=== PATIENT | male | born 1935 | race Caucasian/White ===

== ENCOUNTER 2020-11-21 08:02 | Outpatient (REF) | payer MEDICARE, SELFPAY ==
--- NOTE | ~2020-11-21 | MR_ITS ---
EXAMINATION: MR ANGIOGRAPHY BRAIN WITHOUT CONTRAST CLINICAL INFORMATION: Cerebral aneurysm. Microvascular neuropathy. COMPARISON: CTA head from 06/15/2014. Brain MRI from 06/12/2014. TECHNIQUE: 3D [id number] MR angiography was performed through the brain without the use of intravenous gadolinium and axial source images were reviewed along with rotating MIPs. FINDINGS: Atherosclerotic disease causes moderate irregularity of the intracranial right internal carotid artery and mild irregularity of the intracranial left internal carotid artery without flow-limiting stenosis or occlusion. Otherwise, normal flow-related signal within the ICAs. Normal flow-related signal within the M1 and M2 segments of the middle cerebral arteries bilaterally. The A1 segment of the right anterior cerebral artery is congenitally diminutive. Normal flow-related signal within the A1 segment of the left anterior cerebral artery. Redemonstrated 0.3 cm saccular aneurysm projecting anteriorly from the anterior communicating artery. Normal flow-related signal within the A2 segments of the anterior cerebral arteries. Dominant left vertebral artery. Atherosclerotic disease causes mild narrowing of the proximal V4 segment and moderate to high-grade stenosis of the distal V4 segment of the right vertebral artery. Normal flow-related signal within the V4 segment of the left vertebral artery. There is normal flow-related signal within the proximal posterior inferior cerebellar arteries bilaterally. The basilar artery is mildly tortuous. Otherwise, normal flow-related signal within the basilar artery. Normal proximal segments of the superior cerebellar arteries bilaterally. Normal flow-related signal within the P1 segments of the posterior cerebral arteries bilaterally. Normal flow across the left-sided posterior communicating artery. Normal flow-related signal within the P2 and P3 segments of the rubber goods cutter finisher bilaterally. No demonstrated new intradural aneurysms. Changes of moderate underlying microangiopathy. 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 No additional significant abnormalities on limited evaluation of the intracranial structures. 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 Mild mucosal thickening of the paranasal sinuses. Moderate rightward nasal septal deviation. MR/MR angio head wo con IMPRESSION: 1. 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 2. Mild to moderate intracranial atherosclerotic disease, similar to prior exam.
== END 2020-11-21 08:03 | disposition home or self-care (01) ==
LOC: HO.MRI 08:02
PROVIDERS: PCP Internal Medicine; Visit Provider Psychiatry & Neurology Neurology
DX: I67.9 Cerebrovascular disease, unspecified (principal); I87.1 Compression of vein
CPT/HCPCS: 70544

== ENCOUNTER 2023-01-05 07:27 | Outpatient (REF) | payer MEDICARE, SELFPAY ==
--- NOTE | ~2023-01-05 | CT_ITS ---
EXAMINATION: CT HEAD WITHOUT CONTRAST CLINICAL INFORMATION: Alzheimer's dementia. COMPARISON: Brain MRI from 06/12/2014. TECHNIQUE: Contiguous axial imaging was performed from the skull base to vertex without intravenous administration of contrast. This CT examination was performed using dose optimization techniques as appropriate, variously including the following: *Automated exposure control *Adjustment of mA and/or kV according to patient size (this includes techniques or standardized protocols for targeted exams where dose is matched to indication/reason for exam; i.e. extremities or head) *Use of iterative reconstruction technique DLP: 815 mGy-cm FINDINGS: There is no evidence of acute intracranial hemorrhage or territorial infarction. No abnormal mass effect or midline shift is seen. No extra-axial fluid collections are identified. Extensive chronic white matter microangiopathic changes have progressed. There are small chronic lacunar infarcts in the left basal ganglia. Xxjherqr-yp-aehhra diffuse brain parenchymal volume loss has worsened from previous imaging. The osseous structures and soft tissues are normal. The mastoid air cells are well aerated. Small retention cysts are visible in the right maxillary sinus and left sphenoid sinus. CT/CT head/brain wo IV con IMPRESSION: No acute intracranial hemorrhage or territorial infarction. Progressed extensive chronic white matter microangiopathy and dhdfczhl-ci-vzeuyt diffuse brain parenchymal volume loss.
== END 2023-01-05 07:28 | disposition home or self-care (01) ==
LOC: HO.CT 07:27
PROVIDERS: PCP Internal Medicine; Visit Provider Psychiatry & Neurology Neurology
DX: G30.9 Alzheimer's disease, unspecified (principal)
CPT/HCPCS: 70450

== ENCOUNTER 2024-01-19 22:02 | Inpatient (IN) | payer MEDICARE, SELFPAY ==
--- NOTE | 2024-01-19 | ECG_ITS ---
Test Reason : FALL Blood Pressure : / mmHG Vent. Rate : 070 BPM Atrial Rate : 070 BPM P-R Int : 250 ms QRS Dur : 118 ms QT Int : 436 ms P-R-T Axes : 000 042 -46 degrees QTc Int : 470 ms Sinus rhythm with 1st degree A-V block with frequent Premature ventricular complexes Right bundle branch block Abnormal ECG When compared with ECG of 05-JUN-2014 14:19, Premature ventricular complexes are now Present MN interval has increased Right bundle branch block is now Present Referred By: Generic ED Physician Electronically Signed By:PARTH PERSAUD MD
--- NOTE | ~2024-01-19 | XR_ITS ---
EXAMINATION: XR HIP, RIGHT CLINICAL INFORMATION: fall, pain, prosthesis COMPARISON: None available. TECHNIQUE: AP pelvis, AP and lateral radiographs of the right hip FINDINGS: Partial visualization is made of bilateral total hip arthroplasties. Visualized femur appears intact. The pelvis appears intact. Partial visualization of multilevel endplate and facet hypertrophic changes of the lower lumbar spine. Multiple pelvic phleboliths. XR/XR hip RT w PEL1V IMPRESSION: No acute abnormalities identified. Status post bilateral hip arthroplasties. Electronically signed by: Rubio Macias MD 01/20/2024 04:25 AM MALKA ALANIS
--- NOTE | ~2024-01-19 | CT_ITS ---
EXAMINATION: CT HEAD WITHOUT CONTRAST CT CERVICAL SPINE WITHOUT CONTRAST CLINICAL INFORMATION: Fall. Head strike. Right-sided pain. Weakness. COMPARISON: CT head from 01/05/2023. TECHNIQUE: Contiguous axial imaging was performed from the skull base to vertex without intravenous administration of contrast. Contiguous axial imaging was performed from the upper chest through the skull base without intravenous administration of contrast. Coronal and sagittal reformats were obtained at the acquisition workstation. This CT examination was performed using dose optimization techniques as appropriate, variously including the following: *Automated exposure control. *Adjustment of mA and/or kV according to patient size (this includes techniques or standardized protocols for targeted exams where dose is matched to indication/reason for exam; i.e. extremities or head). *Use of iterative reconstruction technique. DLP: 957 mGy-cm FINDINGS: Head: There is chronic encephalomalacia within the lateral right temporal lobe with associated volume loss. 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 No additional loss of ramirez-white matter differentiation. No evidence of acute intracranial hemorrhage. Confluent hypoattenuation in the periventricular and deep white matter. The ventricles are normal in morphology and size. No evidence for obstructive hydrocephalus. No abnormal mass effect or midline shift. No extra-axial fluid collections. Calcific atherosclerotic disease of the intracranial internal carotid and vertebral arteries. No hyperdense vessel sign. No acute soft tissue or osseous abnormalities. Mild mucosal thickening of the paranasal sinuses. Moderate rightward nasal septal deviation. The mastoid air cells and middle ear cavities are clear. Bilateral lens extractions. Cervical Spine: The atlantooccipital and atlantoaxial articulations remain well aligned. Moderate degenerative arthropathy of the atlantodental articulation. Mild degenerative anterolisthesis of C7 on T1. Otherwise, there is anatomic alignment of the vertebral bodies and posterior elements . Ankylosis of the left C2-C3 and right C2-C5 facets. No evidence of acute fracture or subluxation. The vertebral body heights are maintained. Advanced degenerative disc disease from C2-T3. Facet and uncovertebral joint arthropathy leads to osseous encroachment on the neural foramina from C3-T3. There is no prevertebral soft tissue swelling. The thyroid gland and remaining cervical soft tissues are within normal limits. The lung apices demonstrate no abnormalities. CT/CT head/brain wo IV con IMPRESSION: 1. No evidence of acute intracranial hemorrhage or edematous territorial infarction. 2. 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 Extensive underlying microangiopathy. 3. No evidence of acute fracture or traumatic subluxation of the cervical spine. Moderate to advanced multilevel degenerative spondyloarthropathy of the cervical spine. Electronically signed by: Carlos Mustafa DO 01/20/2024 01:00 AM [facility]
--- NOTE | ~2024-01-19 | XR_ITS ---
EXAMINATION: XR CHEST CLINICAL INFORMATION: weakness COMPARISON: Chest radiograph 06/05/2014 TECHNIQUE: Frontal view of the chest was obtained. FINDINGS: Multiple and fractured median sternotomy wires. Normal heart size. Dense aortic calcific atherosclerosis. No effusions or pneumothoraces. No focal pulmonary consolidation. Marked arthropathic changes of the right shoulder. Single 2 mm well-circumscribed nodule in projection with the right upper lung zone. This finding is not identified on 06/05/2014 examination and may be obscured visualization by differences in obliquity. XR/XR chest 1V IMPRESSION: *No acute abnormalities identified. *Status post CABG. *Single 2 mm well-circumscribed enhancing projection with the right upper pulmonary lobe. This finding may represent a chronic calcified pulmonary granuloma. Electronically signed by: Rubio Macias MD 01/20/2024 04:27 AM [facility]
--- NOTE | ~2024-01-19 | XR_ITS ---
EXAMINATION: XR SHOULDER, RIGHT CLINICAL INFORMATION: fall, pain COMPARISON: Right shoulder radiographs 02/05/2009 report. TECHNIQUE: AP external rotation, Grashey, scapular Y, and axillary views of the right shoulder. FINDINGS: Marked glenohumeral joints based narrowing and osteophytosis. Visualized left ribs and lung appear intact. Partial visualization of multiple median sternotomy wires and mediastinal vascular clips. Several well-corticated subcentimeter ossific bodies noted in the expected location of the glenohumeral joint capsule. No erosive osseous lesions. XR/XR shoulder RT min 2V IMPRESSION: *Marked chronic arthropathic changes of the right glenohumeral joint. No acute abnormalities identified. Electronically signed by: Rubio Macias MD 01/20/2024 04:29 AM [facility]
[2024-01-19 22:09] VITALS: BP 210/100; BP 211/92; PULSE 67; PULSE 75; RESP 16; TEMP 36.8; O2SAT 94; O2SAT 95; BMI 27.5
[2024-01-19 22:27] LABS: MANUAL DIFF FLAG NO
[2024-01-19 22:29] LABS: Basophils Percent Auto 0.3 % (0-2); Eosinophils Absolute Auto 0.4 X10*3/uL (0.0-0.4); Eosinophils Percent Auto 4.4 % (0-4); Hematocrit 37.3 % (42.0-52.0); Hemoglobin 13.4 g/dl (14.0-18.0); Imm Gran Abs Auto 0.03 X10*3/uL (0.00-0.03); Imm Gran Pct Auto 0.3 % (0.0-0.4); Lymphocytes Absolute Auto 1.5 X10*3/uL (1.2-4.9); Lymphocytes Percent Auto 16.7 % (20-40); Mean Corpuscular HGB Conc 35.9 g/dl (31.0-36.0); Mean Corpuscular Hemoglobin 32.4 pg (27.0-33.0); Mean Corpuscular Volume 90.1 fL (80.0-98.0); Mean Platelet Volume 9.2 fL (9.4-12.4); Monocytes Absolute Auto 0.7 X10*3/uL (0.1-1.2); Monocytes Percent Auto 7.5 % (2-11); Neutrophils Absolute Auto 6.1 x10*3/uL (2.0-8.3); Neutrophils Percent Auto 70.8 % (45-73); Platelet Count 197 X10*3/uL (160-400); Red Blood Count 4.14 X10*6/uL (4.60-5.80); Red Cell Distribution Width 11.9 % (11.0-16.0); White Blood Count 8.7 X10*3/uL (4.8-10.8)
--- NOTE | 2024-01-19 22:30 | PC.NURSE ---
blanca from home d/t unwitnessed fall earlier this morning. pt reports going to get in his car where he then tripped/slipped. denies feeling dizzy/lightheaded prior to fall. +headstrike, -loc, -thinners. family reports delay in EMS transport d/t pt declining care. EMS then called d/t increased pain when trying to get him to bed. pt reports increased weakness for the past few days. 975mg tylenol administered by [employer]. c-collar in place. hx bilateral hip surgery. upon ED arrival - a&ox3. pt mostly alert and oriented aside from not knowing the year. pt pleasantly confused. vss and up to date aside from being hypertensive. nsr on the property assessment monitor. 18gIV placed in the right forearm - labs obtained/sent to lab. ekg performed by [email or web address]. EMS states pt is +thinners but family confirmed that pt is not on thinners. PT/INR obtained prior to obtaining information from family. initial ED triage edited/ED provider notified/aware. pt on RA w/o difficulty - no sob/wob noted. respirations even/unlabored. family bedside for support. plan of care ongoing. call lopez placed within reach.
--- NOTE | 2024-01-19 22:30 | MHC.EDTECH ---
Patient was BIBA,placed on the patient monitor,vitals taken,POC taken and is 195,RN aware,EKG taken per order and signed by provider,family at bedside call lopez in reach
[2024-01-19 22:37] LABS: INTERNATIONAL NORM RATIO 1.1 (0.9-1.1); Prothrombin Time 12.4 SEC (10.9-12.4)
[2024-01-19 22:40] LABS: Partial Thromboplastin Time 26.7 SEC (26.0-36.8)
[2024-01-19 22:41] LABS: Glucose, Whole Blood 195 mg/dL (60-115)
[2024-01-19 22:43] LABS: Alanine Aminotransferase 24 U/L (0-40); Albumin Level 3.8 g/dL (3.5-5.0); Alkaline Phosphatase 46 U/L (39-117); Anion Gap 15 (12-20); Aspartate Amino Transferase 31 U/L (5-37); Bilirubin Total 0.5 mg/dL (0.0-1.0); Blood Urea Nitrogen 28 mg/dL (9-16); Calcium 9.3 mg/dL (8.4-10.2); Carbon Dioxide 26 mmol/L (22-29); Chloride 103 mmol/L (96-108); Creatinine Clr Calc Pharmacy 49.5; Estimated Glomerular Filt Rate > 60; Glucose Random 212 mg/dL (60-115); Potassium 4.2 mmol/L (3.3-5.1); Sodium 140 mmol/L (135-145); Total Protein 6.6 g/dL (6.5-8.0)
[2024-01-19 22:49] LABS: Troponin-I High Sensitivity 39.5 ng/L (<3.5-35.0)
[2024-01-19 23:04] LABS: Influenza A PCR NEGATIVE (Negative); Influenza B PCR NEGATIVE (Negative); Resp Syncy Virus RNA Qual PCR NEGATIVE (Negative); SARS COV2 PCR INHOUSE NEGATIVE (Negative)
--- NOTE | 2024-01-19 23:05 | ED_ITS ---
HPI - Fall General Chief Complaint: Fall Stated Complaint: fall head strike per ems Time Seen by Provider: 01/19/24 22:07 Source: patient, family and EMS Mode of arrival: EMS Limitations: no limitations History of Present Illness HPI Narrative: Patient is an 88-year-old male who presents emergency department via EMS for evaluation. He had an unwitnessed mechanical slip and fall today. Was getting out of the car was reportedly wet. He has intermittent episodes of dizziness but is unclear whether he was experiencing any dizziness before the fall today. Patient is was Standing at the back of the vehicle. Patient states that he was reaching for the walker, there is a possibility that it may not have been locked, and he subsequently fell striking his head to the ground without loss of consciousness and landing in a right side-lying position. did not witness the fall directly but checked on him seconds after once she saw ?his head go down? seconds later she checked on him he was conscious. He was unable to get up unassisted son who lives next door is had to facilitate getting him up. Initial nursing triage reports that he is on blood thinners this is inaccurate, patient is not on any anticoagulants nor does he have known coagulation disorders. He declined earlier today to seek evaluation in the emergency department despite family pushing for it. As the day has progressed she was having increasing weakness, endorsing pain to the right shoulder as well as the right hip. Denies any headache dizziness lightheadedness, does have some discomfort to the right lateral neck. He is requiring increased assistance from his who getting ready for bed tonight and was unable to get up from the toilet. He took 975 mg of Tylenol prior to arrival for the pain. He is ultimately amenable to transfer to the ER. Son reports that he also had a fall earlier this week a mechanical trip and fall with use of the walker as well this was endorsing he did not seek evaluation in the emergency department for this. Family does state that he has been having increasing weakness over the past few weeks, he has been engaging and outpatient physical therapy and seemed to be doing well however things have seemed to regress again. He also has been experiencing mild increase in confusion, awaiting outpatient brain MRI from PCP for further evaluation. He experiences intermittent dizziness, most times during ambulation report to the that he is feeling weak like his legs are going to give out and feeling dizzy. Denies any recent known sick contacts. Denies recent fevers or chills. No genitourinary symptoms. Related Data Allergies Allergy/AdvReac Type Severity Reaction Status Date / Time adhesive tape Allergy Unknown RASH Verified 01/19/24 22:10 amlodipine [From NORVASC] Allergy Unknown UNKNOWN Verified 01/19/24 22:10 ezetimibe [From ZETIA] Allergy Unknown UNKNOWN Verified 01/19/24 22:10 ibuprofen [From MOTRIN] Allergy Unknown UNKNOWN Verified 01/19/24 22:10 Iodinated Contrast Media Allergy Unknown UNKNOWN Verified 01/19/24 22:10 [IODINATED CONTRAST MEDIA - IV DYE] nifedipine [From PROCARDIA] Allergy Unknown UNKNOWN Verified 01/19/24 22:10 Xapsjzo-SLE-VtP Reductase Allergy Unknown MUSCLE PAIN Verified 01/19/24 22:10 Inhibitor [[id number] REDUCTASE INHIBITOR] valsartan [From DIOVAN] Allergy Unknown UNKNOWN Verified 01/19/24 22:10 enalaprilat [From VASOTEC] AdvReac Unknown COUGH Verified 01/19/24 22:10 Review of Systems 2 Review of Systems: Yes all other systems are reviewed and are negative [facility] Past Medical History Attestation statement: The following information was validated with the patient. Source: old records reviewed Medical History (Updated 01/20/24 @ 05:11 by Nguyen Freitas PA-C) Type 2 diabetes mellitus without complications HLD (hyperlipidemia) HTN (hypertension) Multiple falls Dizziness Bundle branch block, right First degree AV block Surgical History (Updated 01/20/24 @ 05:11 by Nguyen Freitas PA-C) History of coronary artery bypass graft Social History Social History Smoked in Last 30 Days: No Use of substances other than those prescribed or required for medical reasons: No Advance Directives: No Advance Directives Information Provided: No Do you have a plan to hurt others: No Plan Physical Exam 2 Vital Signs: Vital Signs: Last Vital Signs Temp 97.3 F 01/20/24 03:29 Pulse 54 01/20/24 03:29 Resp 16 01/20/24 03:29 BP 147/60 H 01/20/24 03:29 Pulse Ox 94 01/20/24 03:29 O2 Del Method Room Air 01/20/24 03:29 BMI result Body Mass Index 27.5 Appearance: Alert.?Oriented to person, place and time. No acute distress.?Normal affect. Head: Normocephalic Eyes: Pupils equal, round and reactive to light. EOMI. Conjunctiva and sclera normal? No العر[place] sign noted. No raccoon eyes noted ENT: No septal hematoma, nares patent bilaterally. External auditory canal normal tympanic membrane pearly ramirez and intact bilaterally. Dentition normal, no fractured teeth. No lesions or lacerations of oropharynx. Uvula midline. Moist mucous membranes. Neck: Normal inspection.? Neck supple.??No palpable tenderness, step-off, deformities. Hard cervical spine collar is intact. CVS: Heart sounds normal. Normal heart rate and rhythm.? Pulses normal.?? Respiratory: No respiratory distress.? Lung sounds clear to auscultation bilaterally?? Abdomen: Soft and non-tender. Normoactive bowel sounds. ?? Skin: Skin warm and dry.? Normal skin color.? Normal skin turgor.?? Extremities: No lower extremity edema.? No shortening or rotation. No point tenderness to the right hip. 2+ DP/PT pulse bilaterally. Mild decreased AROM with overhead extension to the right shoulder. 2+ radial pulse. Neuro: Moves all extremities spontaneously. Sensation intact bilaterally. CN II- XII intact. No focal neuro deficits. Course Reevaluation(s) Reevaluation #1: Spoke with hospitalist Dr. Esteban Reed, given his increasing weakness, multiple falls, dizziness concern for possible cardiac etiology, XR imaging of the chest/ right shoulder/ right hip are pending at this time. Case will be reviewed. Need my attending Dr. Rivera aware of patient's pending re- evaluation/disposition. Reevaluation #2: at this time he does seem confused though I suspect it it progressive, no acute findings on workup no delta on troponin, no acute CT findings, no UTI at this time will place in physician observation 524am pending PT/CM Medications Administered Discontinued Medications Generic Name Dose Route Start Last Admin Trade Name Freq PRN Reason Stop Dose Admin Acetaminophen 975 mg 01/20/24 03:47 01/20/24 03:51 Acetaminophen 325 Mg Tablet PO 01/20/24 03:48 975 mg ONCE ONE Administration Medical Decision Making Medical Decision Making MDM Narrative: Patient is an 88-year-old male with past medical history of hypertension, hypercholesterolemia, type 2 diabetes, coronary artery disease quadruple CABG in 2016 presenting to emergency department for evaluation after mechanical trip and fall subsequent right lateral neck pain, right shoulder pain right hip pain in the setting of increasing weakness and multiple falls over the past few weeks as per HPI. Overall he appears well, he answers questions appropriately. Has no focal neurological deficits on examination. No use of anticoagulants or known coagulation disorders. Although the mechanism today appears to be strictly mechanical, he has had progressive weakness and difficulty ambulating, Will obtain CBC to evaluate for leukocytosis/ anemia, CMP and lipase to evaluate for abnormal electrolytes /abnormal renal function/ abnormal hepatic/biliary function, EKG and troponin to evaluate for ischemia/ACS. CT head and cervical spine to exclude ICH, fracture, subluxation, viral serologies, XR of the right shoulder and right hip/pelvis to exclude fracture lower clinical suspicion for dislocation, and Urinalysis. Differential Diagnosis Differential Diagnoses: The differential diagnosis associated with the presentation includes (See narrative above) Admission/Observation Consideration of admission/observation: Escalation of care including admission/observation considered Lab Data MDM Lab Attestation statement: I reviewed the patient's lab results. CBC is without leukocytosis, mild normocytic anemia that does not meet transfusion criteria, no thrombocytopenia. Coagulation studies normal range. No electrolyte derangement. BUN of 28, no baseline comparison available, creatinine within normal range EGFR> 60. Non-anion gap hyperglycemia at 212. LFTs overall unremarkable. Minimally elevated high sensitive troponin at 39.5 will obtain delta troponin for further evaluation viral serologies are negative. 01/19/24 22:23 01/19/24 22:23 Labs: Lab Results 01/19/24 01/19/24 01/19/24 Range/Units 22:22 22:23 22:28 WBC 8.7 (4.8-10.8) X10*3/uL RBC 4.14 L (4.60-5.80) X10*6/uL Hgb 13.4 L (14.0-18.0) g/dl Hct 37.3 L (42.0-52.0) % MCV 90.1 (80.0-98.0) fL MCH 32.4 (27.0-33.0) pg MCHC 35.9 (31.0-36.0) g/dl RDW 11.9 (11.0-16.0) % Plt Count 197 (160-400) X10*3/uL MPV 9.2 L (9.4-12.4) fL Immature Gran % (Auto) 0.3 (0.0-0.4) % Neut % (Auto) 70.8 (45-73) % Lymph % (Auto) 16.7 L (20-40) % [place] % (Auto) 7.5 (2-11) % Eos % (Auto) 4.4 H (0-4) % Baso % (Auto) 0.3 (0-2) % Lymph # (Auto) 1.5 (1.2-4.9) X10*3/uL [place] # (Auto) 0.7 (0.1-1.2) X10*3/uL Eos # (Auto) 0.4 (0.0-0.4) X10*3/uL Baso # (Auto) 0.0 (0.0-0.2) X10*3/uL Abs Immat Gran (auto) 0.03 (0.00-0.03) X10*3/uL Absolute Neuts (auto) 6.1 (2.0-8.3) x10*3/uL Absolute Nucleated RBC 0.000 (0.0-0.012) X10*3/uL Nucleated RBC % (auto) 0.0 (0.0-0.2) /100WBC PT 12.4 (10.9-12.4) SEC INR 1.1 (0.9-1.1) APTT 26.7 (26.0-36.8) SEC Sodium 140 (135-145) mmol/L Potassium 4.2 (3.3-5.1) mmol/L Chloride 103 (96-108) mmol/L Carbon Dioxide 26 (22-29) mmol/L Anion Gap 15 (12-20) BUN 28 H (9-16) mg/dL Creatinine 0.94 (0.5-1.4) mg/dL Estim Creat Clear Calc 49.5 Estimated GFR > 60 POC Glucose 195 H (60-115) mg/dL Random Glucose 212 H (60-115) mg/dL Calcium 9.3 (8.4-10.2) mg/dL Total Bilirubin 0.5 (0.0-1.0) mg/dL AST 31 (5-37) U/L ALT 24 (0-40) U/L Alkaline Phosphatase 46 (39-117) U/L Troponin I High Sens 39.5 H (<3.5-35.0) ng/L B-Natriuretic Peptide 493 H (<100) pg/mL Total Protein 6.6 (6.5-8.0) g/dL Albumin 3.8 (3.5-5.0) g/dL Urine Color Urine Appearance Urine pH (5.0-9.0) Ur Specific [place] (1.005-1.025) Urine Protein (Neg-Trace) mg/dL Urine Glucose (UA) (Negative) mg/dL Urine Ketones (Negative) mg/dL Urine Blood (Negative) Urine Nitrite (Negative) Ur Leukocyte Esterase (Negative) Urine RBC (0-2) /HPF Urine WBC (0-5) /HPF Ur Squamous Epith Cells (0-2) /HPF Urine Bacteria (None Seen) Hyaline Casts (0-2) /LPF Influenza Type A (PCR) NEGATIVE (Negative) Influenza Type B (PCR) NEGATIVE (Negative) RSV RNA Qual (PCR) NEGATIVE (Negative) SARS-CoV-2 RNA (RT-PCR) NEGATIVE (Negative) 01/19/24 01/20/24 Range/Units 23:11 00:37 WBC (4.8-10.8) X10*3/uL RBC (4.60-5.80) X10*6/uL Hgb (14.0-18.0) g/dl Hct (42.0-52.0) % MCV (80.0-98.0) fL MCH (27.0-33.0) pg MCHC (31.0-36.0) g/dl RDW (11.0-16.0) % Plt Count (160-400) X10*3/uL MPV (9.4-12.4) fL Immature Gran % (Auto) (0.0-0.4) % Neut % (Auto) (45-73) % Lymph % (Auto) (20-40) % [place] % (Auto) (2-11) % Eos % (Auto) (0-4) % Baso % (Auto) (0-2) % Lymph # (Auto) (1.2-4.9) X10*3/uL [place] # (Auto) (0.1-1.2) X10*3/uL Eos # (Auto) (0.0-0.4) X10*3/uL Baso # (Auto) (0.0-0.2) X10*3/uL Abs Immat Gran (auto) (0.00-0.03) X10*3/uL Absolute Neuts (auto) (2.0-8.3) x10*3/uL Absolute Nucleated RBC (0.0-0.012) X10*3/uL Nucleated RBC % (auto) (0.0-0.2) /100WBC PT (10.9-12.4) SEC INR (0.9-1.1) APTT (26.0-36.8) SEC Sodium (135-145) mmol/L Potassium (3.3-5.1) mmol/L Chloride (96-108) mmol/L Carbon Dioxide (22-29) mmol/L Anion Gap (12-20) BUN (9-16) mg/dL Creatinine (0.5-1.4) mg/dL Estim Creat Clear Calc Estimated GFR POC Glucose (60-115) mg/dL Random Glucose (60-115) mg/dL Calcium (8.4-10.2) mg/dL Total Bilirubin (0.0-1.0) mg/dL AST (5-37) U/L ALT (0-40) U/L Alkaline Phosphatase (39-117) U/L Troponin I High Sens 44.1 H (<3.5-35.0) ng/L B-Natriuretic Peptide (<100) pg/mL Total Protein (6.5-8.0) g/dL Albumin (3.5-5.0) g/dL Urine Color Yellow Urine Appearance Clear Urine pH 5.5 (5.0-9.0) Ur Specific [place] 1.020 (1.005-1.025) Urine Protein Negative (Neg-Trace) mg/dL Urine Glucose (UA) Negative (Negative) mg/dL Urine Ketones Negative (Negative) mg/dL Urine Blood Negative (Negative) Urine Nitrite Negative (Negative) Ur Leukocyte Esterase Negative (Negative) Urine RBC 0-2 (0-2) /HPF Urine WBC 0-5 (0-5) /HPF Ur Squamous Epith Cells 0-2 (0-2) /HPF Urine Bacteria None Seen (None Seen) Hyaline Casts 0-2 (0-2) /LPF Influenza Type A (PCR) (Negative) Influenza Type B (PCR) (Negative) RSV RNA Qual (PCR) (Negative) SARS-CoV-2 RNA (RT-PCR) (Negative) Independent Interpretation I performed an independent interpretation of an: EKG Interpretation: EKG revealing sinus rhythm with PVCs, first-degree AV block YVAN 250ms, and right bundle-branch block no prior EKG available for review, Radiology Impression Discussion of test interpretation with radiology: I have reviewed the radiologist's reading. Radiologist Impression: CT/CT cervical spine wo IV con IMPRESSION: 1. No evidence of acute intracranial hemorrhage or edematous territorial infarction. 2. 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 Extensive underlying microangiopathy. 3. No evidence of acute fracture or traumatic subluxation of the cervical spine. Moderate to advanced multilevel degenerative spondyloarthropathy of the cervical spine. Independent Historian Clinical information obtained from an independent historian. History obtained from or confirmed by: Spouse, EMS and Other (Son) Chronic Conditions Patient?s care impacted by: Other (See narrative above) Discharge Plan Discharge Clinical Impression: Dizziness, First degree AV block, Bundle branch block, right, Multiple falls Patient Disposition: Still a Patient Print Language: Comoran
[2024-01-19 23:18] LABS: Appearance Urine Clear; Color Urine Yellow; Glucose Urine UA Negative (Negative); Leukocyte Esterase Urine Negative (Negative); Nitrite Urine Negative (Negative); PH 5.5 (5.0-9.0); Urine Blood Negative (Negative); Urine Ketones Negative (Negative); Urine Protein Negative (Neg-Trace)
[2024-01-19 23:23] LABS: Bacteria Urine None Seen (None Seen); Hyaline Casts Urine 0-2 /LPF (0-2); RBC Urine 0-2 /HPF (0-2); Squamous Epithelial Cell Urine 0-2 /HPF (0-2); WBC Urine 0-5 /HPF (0-5)
--- NOTE | 2024-01-19 23:28 | MHC.EDTECH ---
Assisted pt with a clean catch,pt urinated 100MLS in urinal,sample obtained and sent to lab,pt is resting quietly,warm blankets given,call lopez in reach
[2024-01-19 23:30] VITALS: BP 168/80; PULSE 62; RESP 18; TEMP 36.4; O2SAT 96
--- NOTE | 2024-01-19 23:33 | PC.NURSE ---
urinal utilized - urine obtained/sent to lab. pt turned/repositioned to comfort. c-collar remains in place. respirations remain even/unlabored. family remains bedside. plan of care ongoing. call lopez placed within reach.
[2024-01-19 23:57] LABS: B Type Natriuretic Peptide 493 pg/mL (<100)
[2024-01-20] VITALS (10 sets, daily range): BP systolic 129–183; BP diastolic 60–101; PULSE 54–92; RESP 16–18; TEMP 36.3–36.8; O2SAT 92–98; BMI 23.4; BMI 21.8
--- NOTE | 2024-01-20 | PC.NURSE ---
pt to CT at this time. plan of care ongoing.
--- NOTE | 2024-01-20 00:38 | MHC.EDTECH ---
Patient was incont. of a large amount of urine,alissa-care and bed linen changed,patient urinated 150MLS in urinal,repeat lab drawn and sent to lab
[2024-01-20 01:06] LABS: Troponin-I High Sensitivity 44.1 ng/L (<3.5-35.0)
--- NOTE | 2024-01-20 02:12 | MHC.EDTECH ---
Patient urinated 300MLS in urinal,pt was also incont. of a large amount of urine,alissa care given bed linen changed, Ortho static vitals taken per provider's request,call lopez in reach
--- NOTE | 2024-01-20 03:07 | PC.NURSE ---
pt to xray at this time.
[2024-01-20] MEDS: Acetaminophen 325 MG TABLET 975 MG PO (03:51)
--- NOTE | 2024-01-20 03:52 | PC.NURSE ---
pt verbalizes increase in generalized pain at this time - one time dose of Tylenol ordered/administered at this time. effectiveness pending.
--- NOTE | 2024-01-20 05:07 | P.HPHOSP_ITS ---
History of Present Illness Date of Service: 01/20/24 Attending physician on admission: Margarito Reed Chief Complaint: Unwitnessed mechanical fall Patient is an 88-year-old male with a past medical history significant for HTN, HLD, T2DM CAD status post CABG 2015, who presented to the ED yesterday due to frequent falls, weakness and dizziness. His son is the main historian for the patient at this time. There is some reported confusion that has been worsening and the patient is followed by Neurology and is supposed to have a repeat MRI soon. He reportedly had a fall while exiting his car yesterday where he fell onto his right side and did hit his head shoulder and hip but denies any loss of consciousness. His was present and reported that seconds later she did see him and did not notice any loss of consciousness either. His son is very concerned about his recent falls and persistent nocturia which is contributing to lack of sleep and his concern for him falling in the middle of the night. He has no URI symptoms, chest pain, shortness of breath, lower extremity edema, nausea or vomiting. Review of Systems 2 Constitutional: Constitutional: Denies chills, Denies fatigue, Denies fever(s) and Denies headache(s) Eyes: Eyes: Denies change in vision ENT: Denies headache(s), Denies nasal congestion, Denies nasal discharge and Denies sore throat Cardiovascular: Cardiovascular: Denies chest pain, Denies rapid heart rate, Denies lightheadedness and Denies dyspnea Respiratory: Respiratory: Denies chest congestion, Denies cough, Denies dyspnea and Denies wheezing Gastrointestinal: Gastrointestinal: Denies constipation, Denies diarrhea, Denies nausea and Denies vomiting Genitourinary: Genitourinary: Denies dysuria and Reports nocturia Musculoskeletal: Musculoskeletal: Denies myalgias Integumentary/Breasts: Skin/Breast: Denies rash Neurologic: Denies headache(s) Psychiatric: Psychiatric: Reports as per HPI Endocrine: Endocrine: Denies fatigue Hematologic/Lymphatic: Hematologic/Lymphatic: Denies easy bleeding Allergic/Immunologic: Allergic/Immunologic: Denies wheezing [facility] Medical History (Updated 01/20/24 @ 05:29 by Nguyen Freitas PA-C) Type 2 diabetes mellitus without complications HLD (hyperlipidemia) HTN (hypertension) Multiple falls Dizziness Bundle branch block, right First degree AV block Functional capacity: uses cane/walker Surgical History (Updated 01/20/24 @ 05:11 by Nguyen Freitas PA-C) History of coronary artery bypass graft Social History Patient Tobacco Use Status: Never used Tobacco Smoked in Last 30 Days: No Use of substances other than those prescribed or required for medical reasons: No Advance Directives: No Advance Directives Information Provided: No Do you have a plan to hurt others: No Plan Nutrition Risks: No Nutritional Risk Narrative: No smoking, alcohol or drug use. Lives with , son lives next door. Meds Allergies Allergy/AdvReac Type Severity Reaction Status Date / Time adhesive tape Allergy Unknown RASH Verified 01/19/24 22:10 amlodipine [From NORVASC] Allergy Unknown UNKNOWN Verified 01/19/24 22:10 ezetimibe [From ZETIA] Allergy Unknown UNKNOWN Verified 01/19/24 22:10 ibuprofen [From MOTRIN] Allergy Unknown UNKNOWN Verified 01/19/24 22:10 Iodinated Contrast Media Allergy Unknown UNKNOWN Verified 01/19/24 22:10 [IODINATED CONTRAST MEDIA - IV DYE] nifedipine [From PROCARDIA] Allergy Unknown UNKNOWN Verified 01/19/24 22:10 Ewannit-WVI-FbQ Reductase Allergy Unknown MUSCLE PAIN Verified 01/19/24 22:10 Inhibitor [[id number] REDUCTASE INHIBITOR] valsartan [From DIOVAN] Allergy Unknown UNKNOWN Verified 01/19/24 22:10 enalaprilat [From VASOTEC] AdvReac Unknown COUGH Verified 01/19/24 22:10 Home Medications ?Medication ?Instructions ?Recorded ?Confirmed ?Last Taken ?Type FreeStyle Lite Meter 01/20/24 01/20/24 Unknown History ascorbic acid (vitamin C) 500 mg 01/20/24 01/19/24 History tablet aspirin 81 mg tablet mg PO 01/20/24 01/19/24 History cyanocobalamin (vitamin B-12) 500 mcg 01/20/24 01/19/24 History mcg tablet metformin 500 mg tablet 500 mg PO BID 01/20/24 01/20/24 01/19/24 History metoprolol succinate 100 mg 100 mg PO DAILY 01/20/24 01/20/24 01/19/24 History tablet,extended release 24 hr Physical Exam 2 Vital Signs and Narrative: Vital Signs: Last Vital Signs Temp 97.3 F 01/20/24 03:29 Pulse 54 01/20/24 03:29 Resp 16 01/20/24 03:29 BP 147/60 H 01/20/24 03:29 Pulse Ox 94 01/20/24 03:29 O2 Del Method Room Air 01/20/24 03:29 BMI result Body Mass Index 27.5 General: AOx3, no acute distress Resp: CTA bilaterally CVS: mild bradycardia GI: +BS, NT, no distention Skin: Warm, dry Neuro: Cranial nerves II-XII grossly intact bilaterally. Motor grossly intact bilaterally Extremities: No LE edema Psych: Appropriate affect Results Labs 01/19/24 22:23 01/19/24 22:23 Labs: Laboratory Results - last 24 hr 01/19/24 01/19/24 01/19/24 22:22 22:23 22:28 MCV 90.1 MCH 32.4 MCHC 35.9 RDW 11.9 Plt Count 197 MPV 9.2 L Immature Gran % (Auto) 0.3 Neut % (Auto) 70.8 Lymph % (Auto) 16.7 L [place] % (Auto) 7.5 Eos % (Auto) 4.4 H Baso % (Auto) 0.3 Lymph # (Auto) 1.5 [place] # (Auto) 0.7 Eos # (Auto) 0.4 Baso # (Auto) 0.0 Abs Immat Gran (auto) 0.03 Absolute Neuts (auto) 6.1 Absolute Nucleated RBC 0.000 Nucleated RBC % (auto) 0.0 PT 12.4 INR 1.1 APTT 26.7 Anion Gap 15 Estim Creat Clear Calc 49.5 Estimated GFR > 60 POC Glucose 195 H Random Glucose 212 H Calcium 9.3 Total Bilirubin 0.5 AST 31 ALT 24 Alkaline Phosphatase 46 Troponin I High Sens 39.5 H B-Natriuretic Peptide 493 H Total Protein 6.6 Albumin 3.8 Urine Color Urine Appearance Urine pH Ur Specific [place] Urine Protein Urine Glucose (UA) Urine Ketones Urine Blood Urine Nitrite Ur Leukocyte Esterase Urine RBC Urine WBC Ur Squamous Epith Cells Urine Bacteria Hyaline Casts Influenza Type A (PCR) NEGATIVE Influenza Type B (PCR) NEGATIVE RSV RNA Qual (PCR) NEGATIVE SARS-CoV-2 RNA (RT-PCR) NEGATIVE 01/19/24 01/20/24 23:11 00:37 MCV MCH MCHC RDW Plt Count MPV Immature Gran % (Auto) Neut % (Auto) Lymph % (Auto) [place] % (Auto) Eos % (Auto) Baso % (Auto) Lymph # (Auto) [place] # (Auto) Eos # (Auto) Baso # (Auto) Abs Immat Gran (auto) Absolute Neuts (auto) Absolute Nucleated RBC Nucleated RBC % (auto) PT INR APTT Anion Gap Estim Creat Clear Calc Estimated GFR POC Glucose Random Glucose Calcium Total Bilirubin AST ALT Alkaline Phosphatase Troponin I High Sens 44.1 H B-Natriuretic Peptide Total Protein Albumin Urine Color Yellow Urine Appearance Clear Urine pH 5.5 Ur Specific [place] 1.020 Urine Protein Negative Urine Glucose (UA) Negative Urine Ketones Negative Urine Blood Negative Urine Nitrite Negative Ur Leukocyte Esterase Negative Urine RBC 0-2 Urine WBC 0-5 Ur Squamous Epith Cells 0-2 Urine Bacteria None Seen Hyaline Casts 0-2 Influenza Type A (PCR) Influenza Type B (PCR) RSV RNA Qual (PCR) SARS-CoV-2 RNA (RT-PCR) Imaging Radiologist's Impressions: Impressions Cervical Spine CT 01/19/24 23:57 IMPRESSION: 1. No evidence of acute intracranial hemorrhage or edematous territorial infarction. 2. 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 Extensive underlying microangiopathy. 3. No evidence of acute fracture or traumatic subluxation of the cervical spine. Moderate to advanced multilevel degenerative spondyloarthropathy of the cervical spine. Electronically signed by: Carlos Mustafa DO 01/20/2024 01:00 AM EST RP Head CT 01/19/24 23:57 IMPRESSION: 1. No evidence of acute intracranial hemorrhage or edematous territorial infarction. 2. 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 Extensive underlying microangiopathy. 3. No evidence of acute fracture or traumatic subluxation of the cervical spine. Moderate to advanced multilevel degenerative spondyloarthropathy of the cervical spine. Electronically signed by: Carlos Mustafa DO 01/20/2024 01:00 AM EST RP Chest X-Ray 01/20/24 03:10 IMPRESSION: *No acute abnormalities identified. *Status post CABG. *Single 2 mm well-circumscribed enhancing projection with the right upper pulmonary lobe. This finding may represent a chronic calcified pulmonary granuloma. Electronically signed by: Rubio Macias MD 01/20/2024 04:27 AM EST RP Hip/Pelvis X-Ray 01/20/24 03:10 IMPRESSION: No acute abnormalities identified. Status post bilateral hip arthroplasties. Electronically signed by: Rubio Macias MD 01/20/2024 04:25 AM EST RP Shoulder X-Ray 01/20/24 03:10 IMPRESSION: *Marked chronic arthropathic changes of the right glenohumeral joint. No acute abnormalities identified. Electronically signed by: Rubio Macias MD 01/20/2024 04:29 AM EST RP Assessment and Plan (1) Multiple falls: Status: Acute (2) Dizziness: Status: Acute (3) Nocturia: Status: Acute Plan Patient is an 88-year-old male with a past medical history significant for HTN, HLD, T2DM CAD status post CABG 2015, who presented to the ED yesterday due to frequent falls, weakness and dizziness. multiple falls - weakness/dizziness - head/neck CT negative, XR hip, shoulder, chest negative for fx - no acute infectious process, no leukocytosis - BP normal, orthostatics normal - BNP elevated, no LE edema or pulmonary edema - EKG with 1st degree AV block and RBBB - echocardiogram ordered - cardiac consult - consider neurologic evaluation including vertigo if cardiac w/u negative nocturia - likely due to BPH - can be contributing to lack of rest and weakness - UA negative - consider flomax after cardiac w/u complete HTN - BP stable - cardiac consult as above CAD s/p CABG in 2016 - continue ASA 81 T2DM - hold metformin - diabetic diet - sliding scale insulin presumed full code VTE prophylaxis: lovenox Patient with multiple recent falls, mechanical in nature but weakness and dizziness contributing, requiring admission for at least 2 midnight stay for further workup and monitoring. Quality Stroke Does the patient have a stroke diagnosis?: No VTE Prior VTE?: No VTE Risk Level:: Medical - moderate - high VTE Device Contraindication: Treatment Not Indicated VTE Drug Contraindication: N/A - Med Ordered
--- NOTE | 2024-01-20 05:24 | MHC.EDTECH ---
Rounds and vitals completed,patient was incont.of a large amount of urine,alissa-care given,pt repositioned to comfort, call lopez in reach
--- NOTE | 2024-01-20 06:06 | MHC.EDTECH ---
Patient placed in hospital bed for comfort,bed alarm on for safety,belongings list completed,copy placed in chart,call lopez in reach
--- NOTE | 2024-01-20 07:00 | CA_ITS ---
Transthoracic Echocardiogram Patient (Last, First, Middle): Rober Hatch G Gender: Male Date of : 1935 Age: 88 Procedure Date: 01/20/2024 Procedure Type: Transthoracic Echocardiogram Location: ER Height: 162.56 cm Weight: 61.69 kg BSA: 1.66 m2 Heart Rate: 66 bpm BP: 153 / 74 mmHg Commercial Diver: KARLO Referring MD: Nguyen Freitas PA-C Talent Assistant: Andrés Pino MD Symptoms: dizziness, weakness, falls Study Quality: Adequate w contrast ECG Rhythm: Sinus Conclusions: - 1. Normal LV ejection fraction of 60 65% with impaired relaxation filling pattern and elevated filling pressures 2. Mildly dilated left atrium 3. Possible mass on the anterior mitral leaflet which could represent a vegetation, could be artifactual with mild mitral regurgitation 4. Mildly dilated ascending aorta 5. No gross pericardial effusion Findings Procedure Information Contrast agent, definity, is being given per protocol without apparent complications. Left Ventricle Normal left ventricular size and systolic function. There is mildly increased left ventricular wall thickness. The visually estimated ejection fraction is between 60-65%. Spectral Doppler is indicative of an impaired relaxation filling pattern. Elevated filling pressures. E/E prime ratio is >15, consistent with elevated filling pressures. Right Ventricle Normal right ventricular cavity size and systolic function. Atria The left atrium is mildly dilated. Interatrial shunt cannot be excluded. The right atrium is likely dilated. Aortic Valve There is mild calcification of the aortic valve. There is no aortic valve stenosis. There is no aortic valve regurgitation. Mitral Valve There is moderate anterior and mild posterior mitral leaflet thickening. There is mild mitral annular calcification. There is mild mitral valve regurgitation. There is no mitral valve stenosis. There is a possible mobile mass noted on one view on parasternal view which could represent a torn cord. Vegetation can not be entirely ruled out in appropriate clinical settings. Consider blood cultures Pulmonic Valve The pulmonic valve was not well visualized. Tricuspid Valve Likely normal tricuspid valve structure and function. Tricuspid regurgitation envelope is inadequate for calculation of right ventricular systolic pressure. Normal right atrial pressure. Great Vessels The pulmonary artery was not well visualized. There is mild dilatation of the ascending aorta measuring 3.80 cm. Small plaque is seen in the sino tubular ridge. Venous The inferior vena cava is normal in size and collapses greater than 50% with inspiration. Pericardium/Pleural There is no evidence of pericardial effusion. Prior Study Comparison No prior study available for comparison. Measurements 2D Linear Measurements IVSd: 1.36 0.6-0.9/0.6-1.0 cm LVIDd: 3.60 3.9-5.3/4.2-5.9 cm LVIDd Index: 2.17 2.4-3.2/2.2-3.1 cm/m2 LVIDs: 2.50 2.0-3.6 cm LVPWd: 1.33 0.7-1.1 cm LA Diam: 4.20 2.7-3.8/3.0-4.0 cm LAIDs Index: 2.53 1.5-2.3 cm/m2 LV Mass: 226.67 67-162/88-224 g LV Mass Index: 136.55 43-95/49-115 g/m2 LVOT Diam: 2.10 3.0+(-)1.3 cm 2D Systolic Function EF 4C: 70.80 >55% EF 2C: 48.00 >55% EF BiP: 61.80 >55% Mitral Valve MV Pk E: 0.67 MV PK A: 0.52 MV Decel Time: 181.00 E/A: 1.30 E'Lateral: 4.35 E'Medial: 3.26 E/E' Med: 20.60 E/E' Lat: 15.50 PHT: 53.00 MVA PHT: 4.15 Decel Parmer: 3.72 Aortic Valve AoV Pk Mateus: 1.03 AoV Mn Mateus: 0.70 AoV VTI: 0.19 AoV Pk Grad: 4.00 Aov Mn Grad: 2.00 NANCI Cont.VTI: 2.54 LVOT LVOT Pk Mateus: 0.78 LVOT Mn Mateus: 0.49 LVOT VTI: 0.14 LVOT Pk Grad: 2.00 LVOT Mn Grad: 1.00 LVOT Diam: 2.10 LVOT Area: 3.46 Diastolic Function MV Pk E: 0.67 MV Pk A: 0.52 E/A: 1.30 E'Medial: 3.26 E/E' Med: 20.60 E' Laterial: 4.35 E/E' Lat: 15.50 Right Ventricle TAPSE (mm): 10.70 TVS' Mateus: 8.59 Tricuspid Valve RA Press: 3.00 Great Vessels Aorta Sinus of Valsalva: 3.40 2.0-3.5 cm Ao Asc: 3.80 2.1-3.4 cm Pulmonary Valve PV Pk Mateus: 0.89 Peak PV Grad: 3.00 Updated in Other Vendor System with Status of Final Andrés Pino MD electronically signed on 01/20/2024 4:13:23 PM with status of Final
[2024-01-20 07:13] LABS: Glucose, Whole Blood 166 mg/dL (60-115)
[2024-01-20] MEDS: Insulin Lispro 100 UNIT/ML 3 ML VIAL SUBCUT ×2 (07:17→18:30)
[2024-01-20] MEDS: 0.9 % Sodium Chloride Flush 3 ML SYRINGE IVFLUSH ×2 (07:33→18:28)
[2024-01-20] MEDS: Enoxaparin Sodium 40 MG/0.4 ML SYRINGE SUBCUT (08:07)
--- NOTE | 2024-01-20 09:06 | PHA.MEDREC ---
Addendum entered by Cortney Johnson RPh 01/20/24 11:48: Med list was faxed to pharmacy and was used to verify med rec. Original Note: Pharmacy Consult ? Medication Reconciliation Pharmacy has revieded the medication reconciliation done by nursing. Spoke to patient to confirm med list. Patient seemed a little confuse when asked about his medication. Patent said yes to everything i asked. utilized claim to confirm med list
[2024-01-20] MEDS: Tamsulosin HCL 0.4 MG CAPSULE PO (10:22)
[2024-01-20] MEDS: Aspirin Enteric Coated 81 MG TABLET.DR PO (10:36)
[2024-01-20] MEDS: Metoprolol Succinate ER 100 MG TAB.ER.24H PO (10:36)
[2024-01-20 11:37] LABS: Glucose, Whole Blood 123 mg/dL (60-115)
--- NOTE | 2024-01-20 12:43 | MHC.CM.PN ---
Attempted to meet with patient in regards to discharge planning. Patient is currently confused. Spoke with patient's son, Christian, in regards to discharge planning. Patient lives with his (Crhistian's mom, is supposed to use a cane but doesn't and had no services prior to coming to the hospital. Patient recently finished 8 weeks of outpatient physical therapy at [facility] for gait and balance. Patient was doing well at home until about 1 week ago. Patient has been experiencing increased confusion and difficulty controlling blood sugars. Per Christian, on Thursday Dr Malcolm was going to arrange an outpatient MRI due to confusion. Patient was not able to get out patient MRI due to patient being admitted to the hospital. Copy of HCP requested from [facility]. Per Christian, patient can be stubborn in regards to realistic expectation and needs at times. Patient feels his can help him with everything and that is not necessarily true. Christian lives next door and is able to help patient and his mom when necessary but feels patient may need rehab. Christian's [id number] has been to [facility]. Christian aware physical therapy eval for home safety will be ordered when patient is medically stable. IMM explained and signed. Per Christian, patient will not feel rehab is necessary. Referral made to [facility] to follow for d/c needs. Dr Briones aware of Christian's concerns. Dr Briones will reach out to Christian. Continue to monitor for d/c needs.
--- NOTE | 2024-01-20 13:06 | PM.EVENT ---
Event Note Date of Service: 01/20/24 Event Note: seen and evaluated this morning Feels better overall but totally confused about the hospital stay denies any dizziness or lightheadedness no abnormal rhythm on Tele CT head showed 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 Extensive underlying microangiopathy .PT\OT evaluation Time Spent With Patient Time: Total time managing care of this patient today ____ minutes.
[2024-01-20 17:08] LABS: Glucose, Whole Blood 219 mg/dL (60-115)
--- NOTE | 2024-01-20 19:48 | PC.NURSE ---
Patient checked, cleansed, and repositioned in bed with fresh chux.
[2024-01-20 22:01] LABS: Glucose, Whole Blood 146 mg/dL (60-115)
--- OUTSIDE RECORDS SUMMARY | 2024-01-20 22:33 | XMS_ITS ---
Author Organization [facility] Address [address] [place] [address] Care Team Providers Care Media Supervisor Name Role Phone Pritesh Malcolm MD Primary Care Provider Marcella Vidal [phone] REASON FOR VISIT Reschedule Encounters Encounter Location Date Provider Diagnosis [facility] [address] [place] [address] 01/20/2024 Marcella Joseph Plan Of Treatment Next Appt Details Provider Name:Marcella peguero, 04/08/2024 12:30:00 PM, [address] [place], [address], Progress Notes * Rober HATCH GDOB: (88 yo M)Acc No.[id number]:01/20/2024 Patient:?Rober HATCH :1935???Age:88 Y???Sex:Male Address:[address] [place] [address] * true * Date:? Generated for Printi maricarmen/Veena/eTransmitting on:?01/20/2024 10:33 PM EST
--- OUTSIDE RECORDS SUMMARY | 2024-01-20 22:33 | XMS_ITS ---
[facility] Organization [facility] Address [address] [place] [address] Care Team Providers Care Home Visitor [employer] Name Role Phone Pritesh Malcolm MD Primary Care Provider Marcella Vidal Unavailable [phone] Allergies Allergen (clinical drug ingredient) Drug/Non Drug Allergy documented on EMR Reaction Allergy Type Onset Date Status naproxen Aleve Unknown Drug Allergy Active diltiazem Cartia XT Unknown Drug Allergy Active valsartan Diovan Unknown Drug Allergy Active Iodine Unknown Drug Allergy Active ferrous sulfate Iron Unknown Drug Allergy A ctive Motrin Unknown Drug Allergy Active amlodipine Norvasc Unknown Drug Allergy Active ezetimibe Zetia Unknown Drug Allergy Active Adhesive Bandages Unknown Drug Allergy Active Substance with 7-yptcvhq-7-methylgluta ryl-coenzyme A reductase inhibitor mechanism of action (substance) Statins Unknown Drug Allergy Active REASON FOR VISIT Painful nail(s) aggrevated by shoes causing difficulty standing/walking Medications Medication SIG (Take, Route, Frequency, Duration) Notes Start Date End Date Status Vitamin D3 Active Lisinopril 20 MG Orally Once a day Not-Taking Lisinopril-hydroCHLORO thiazide 20-25 MG 1 tablet Orally Once a day for 30 day(s) Not-Taking Lisinopril Not-Takin g Praluent 75 MG/ML Subcutaneous injection twice a month Not-Taking Fish Oil 1000 MG Orally Once a day Active Aspirin Active Vitamin B12 Active Acetaminophen Active Vitamin C Active Losartan Potassium 100 MG 1 tablet Orally Once a day Active metFORMIN HCl 500 MG 1 tablet with a alina l Orally Twice a day Active Metoprolol Succinate Active Social History Tobacco Use: Social History Observation Description Date Details (start date - stop date) Never Smoker NA - NA Tobacco Use/Smoking Question Answer Notes Are you a: nonsmoker Additional Findings: Tobacco Non-User Current no n-smoker Alcohol Screen Question Answer Notes Did you have a drink containing alcohol in the p ast year? No Points 0 Interpretation Negative Tobacco use other than smoking: Question Answer Notes Are you an other tobacco user? No Vital Signs Blood pressure systolic 138 mm Hg 07/14/19 24 Blood pressure diastolic 77 mm Hg 024 Height 5 ft 3 in in 07/14/2023 Weight 141 lbs 07/14/2023 BMI 24.97 kg/m2 07/14/2023 Encounters Encounter Location Date Provider Diagnosis [facility] [address] [place] [address] 07/14/2023 Marcella Joseph Xerosis of skin L85.3 ; Tinea unguium B35.1 ; Type 2 diabetes mellitus without complication, without long-term current use of insulin E11.9 ; Pain in toe of left foot M79.675 and Pain in toe of right foot M79.674 Assessments Encounter Date Diagnosis (ICD Code) Assessment Notes Treatment Notes Treatment Clinical Notes Section Notes 07/14/2023 Xerosis of skin (ICD-10 - L85.3) 07/14/2023 Tinea unguium (ICD-10 - B35.1) 07/14/2023 Type 2 diabetes mellitus without complication, without long-term current use of insulin (ICD-10 - E11.9) 07/14/2023 Pain in toe of left foot (ICD-10 - M79.675) 07/14/2023 Pain in toe of right foot (ICD-10 - M79.674) Plan Of Treatment Next Appt Details Follow Up: 3 Months, Reason: Provider Name:Marcella peguero, 04/08/2024 12:30:00 PM, [address] [place] [address], [id number], Procedure Notes * Category Sub-Category Detail Notes Debride Nail 6-10 Nail debridement Nail debridem ent performed extensively to reduce/remove overall nail length and girth, subungual debris, and necrotic tissue, by manual and electrical means with use of a nail nipper and/or dremel, to more viable healthy nail plate or bed tissue 6-10. Silver nitrate used for any petechial bleeding as necessary. Patient chooses, no pharmaceutical tx (69804) Progress Notes * Rober HATCH GDOB: 6 (87 yo M)Acc No.[id number]:07/14/2023 Progress Note Patient:Rober Suero Provider:?Marcella Joseph DPM :1935???Age:87 Y???Sex:Male Neri e:07/14/2023 Address:[address] [place] [address] [facility] Pcp:Pritesh Malcolm MD Subjective: * Chief Complaints: * ???Painful nail(s) aggrevate d by shoes causing difficulty standing/walking * HPI: ???Painful Nails:?Pt States Last PCP Visit:?Date:?05/24/2022 * Medical History:? * Surgical History:?right hip replacement 10/12/19bypass surgery * Hospitalization/Major Diagno stic Procedure:?Denies Past Hospitalization * Family History:?Mother: dece ased.?Father: .?Children: alive, diagnosed with Unspecified essential hypertension, Unspecified heart disease.? * Social History:?Tobacco Use:?Tobacco Use/Smoking?Are you a:?nonsmoker ?Additional Findings: Tobacco Non-User?Current non-smoker ?Tobacco use other than smoking?Are you an other tobacco user??No ???Drugs/Alcohol:?Drugs?Have you used drugs other than those for medical reasons in the past 12 months??No ?Alcohol Screen?Did you have a drink containing alcohol in the past year??No ?Points?0 ?Interpretation?Negative ???Miscellaneous:?Caffeine: yes, frequency:, 1-2 cups per day. ?Children: yes. ?Exercise: yes, walking. ?Marital status: . ?Occupation: retired - [employer], [employer]. * Medications:?TakingLosartan Potassium 100 MG Tablet 1 tablet Orally Once a daymetFORMIN HCl 500 MG Tablet 1 tablet with a meal Orally , Notes: Twice a dayMetoprolol Succinate Acetaminophen Vitamin C Fish Oil 1000 MG Capsule Orally Once a dayAspirin Vitamin B12 Vitamin D3 Taking Losartan Potassium 100 MG Tablet 1 tablet Orally Once a dayTaking metFORMIN HCl 500 MG Tablet 1 tablet with a meal Orally , Notes: Twice a dayTaking Metoprolol Succinate Taking Acetaminophen Taking Vitamin C Taking Fish Oil 1000 MG Capsule Orally Once a dayTaking Aspirin Taking Vitamin B12 Taking Vitamin D3 Not-Taking/PRNPraluent 75 MG/ML Solution Pen-injector Subcutaneous injection twice a monthLisinopril 20 MG Tablet Orally Once a dayLisinopril-hydroCHLOROthiazide 20-25 MG Tablet 1 tablet Orally Once a dayLisinopril Medication List reviewed and reconciled with the patientNot- Taking/PRN Praluent 75 MG/ML Solution Pen-injector Subcutaneous injection twice a monthNot-Taking/PRN Lisinopril 20 MG Tablet Orally Once a dayNot-Taking/PRN Lisinopril-hydroCHLOROthiazide 20-25 MG Tablet 1 tablet Orally Once a dayNot-Taking/PRN Lisinopril Medication List reviewed and reconciled with the patient * Allergies:?IodineAdhesive Ba ndagesAleveCartia XTDiovanIronMotrinZetiaNorvascStatinsyes[Allergies Verified] Objective: * Vitals:?Ht: 5 ft 3 in, Wt: 1 41, BMI: 24.97, Shoe size: 8.5, BP: 138/77 mm Hg, BS: 175, Wt-k.96 kg. * ???Past Orders: ???Lab:HEMOGLOBIN A1C (GLYCO HEMOGLOBIN) (Order Date - 11/28/2022) (Collection Date - 11/28/2022) ? Value Reference Range ?HEMOGLOBIN A1C % (HH) 8.0 * Examination: ???Ophthalmology Referral: ?DIABETES EYE EXAM?Nails: ?NAILS are:?Elongated, overgrown, dystrophic, lytic, greater than 3mm thick, discolored and friable with crumbly malodorous subungual debris, with pain on palpation, 1-5 B/L.?Dermatologic: ?SKIN FINDINGS:?Skin shows approximately _75__% LESS, sign(s) of, dryness, scaling, in a stocking fashion, no fissure(s) present, B/L.? Assessment: * Assessment: 1.?Xerosis of skin - L85.3 ( Primary), Acute problem, Uncomplicated (3)?2.?Tinea unguium - B35.1?3.?Type 2 diabetes mellitus without complication, without long- term current use of insulin - E11.9?4.?Pain in toe of left foot - M79.675?5.?Pain in toe of right foot - M79.674? Plan: * Treatment: * Procedures:?Debride Nail 6-10:?Nail debridement?Nail debridement performed extensively to reduce/remove overall nail length and girth, subungual debris, and necrotic tissue, by manual and electrical means with use of a nail nipper and/or dremel, to more viable healthy nail plate or bed tissue 6-10. Silver nitrate used for any petechial bleeding as necessary. Patient chooses, no pharmaceutical tx (66755).? * Procedure Codes:?09183 DESTINY PENNY, 6 OR MORE * Preventive Medicine:? ??Counseling:?Discussion:?-12: Office or other outpatient visit for the evaluation and management of an established patient, which required a medically appropriate history and/or examination and STRAIGHTFORWARD level of MEDICAL DECISION MAKING, 1 SELF-LIMITED OR MINOR PROBLEM, MINIMAL- NO AMOUNT/COMPLEXITY OF DATA TO BE REVIEWED/ANALYZED, AND MINIMAL RISK OF COMPLICATION/MORBIDITY. The visit on the day of the encounter encompassed interpreting the data and educating the patient as to the nature of their condition, treatment options available according to their individual PMH, meds, allergies, and overall health/living conditions, as well as any potential risks or complications that may occur from a failure to adhere to, and participate in, the recommended course of therapy. The discussion included a complete verbal, and/or written explanation of the examination results, any x-rays taken, the proposed diagnosis, and outline of the treatment plan. A schedule for future care needs was also explained. The patient verbalized an understanding of the instructions at this time and agreed to be an active participant in their treatment. If the patient should think of any questions or concerns after the visit, I have encouraged the patient to call the office, Patients podiatric issue has improved, they should call the office with any future issues or concerns.? * Follow Up:?3 Months * Images: * Sign off status: Completed true * Provider:?Marcella Joseph DPM Date:?05/2023 Generated for Dinorah hernadez/Veena/Abdoulitting on:?01/20/2024 10:33 PM EST History and Physical Notes * HPI (History of Present Illness) Category Sub-Category Detail Notes Category Not es Painful Nails Pt States Last PCP Visit: Date:: 05/24/2022 Examination Category Sub-Category Detail Notes Category Not es Dermatologic SKIN FINDINGS: Skin shows appro ximately _75__% LESS, sign(s) of, dryness, scaling, in a stocking fashion, no fissure(s) present, B/L Ophthalmology Referral DIABETES EYE EXAM Diabeti c Retinopathy Screening:: Yes Findings of Diabetic Eye Exam:: retinopa thy slight Nails NAILS are: Elongated, overg rown, dystrophic, lytic, greater than 3mm thick, discolored and friable with crumbly malodorous subungual debris, with pain on palpation, 1-5 B/L
--- OUTSIDE RECORDS SUMMARY | 2024-01-20 22:33 | XMS_ITS ---
Author Organization [facility] Address [address] [place] [address] Care Team Providers Care R&D Engineer Name Role Phone Pritesh Malcolm MD Primary Care Provider Marcella Vidal Unavailable [phone] Allergies Allergen (clinical drug ingredient) Drug/Non Drug [...] Bandages Unknown Drug Allergy Active Substance with 4-tnwlxer-4-methylgluta ryl-coenzyme A reductase inhibitor mechanism of action (substance) Statins Unknown Drug Allergy Active REASON FOR VISIT Painful nail(s) aggrevated by shoes causing difficulty standing/walking Medications Medication SIG (Take, Route, Frequency, Duration) Notes Start Date End Date Status Fish Oil 1000 MG Orally Once a day Active Vitamin D3 Active Praluent 75 MG/ML Subcutaneous injection twice a month Not-Taking Aspirin Active Vitamin B12 Active Acetaminophen Active Vitamin C Active metFORMIN HCl 500 MG 1 tablet with a alina l Orally Twice a day Active Metoprolol Succinate Active Losartan Potassium 100 MG 1 tablet Orally Once a day Active Lisinopril Not-Takin g Lisinopril 20 MG Orally Once a day Not-Taking Lisinopril-hydroCHLORO thiazide 20-25 MG 1 tablet Orally Once a day for 30 day(s) Not-Taking Social History Tobacco Use: Social History Observation Description Date Details (start date - stop date) Never Smoker NA - NA Tobacco Use/Smoking Question Answer Notes Are you a: nonsmoker Additional Findings: Tobacco Non-User Current no n-smoker Tobacco use other than smoking: Question Answer Notes Are you an other tobacco user? No Vital Signs Blood pressure systolic 123 mm Hg 10/23/19 24 Blood pressure diastolic 74 mm Hg 024 Height 5 ft 3 in in 10/23/2023 Weight 139 lbs 10/23/2023 BMI 24.62 kg/m2 10/23/2023 Encounters Encounter Location Date Provider Diagnosis [facility] [place] [address] [place] [address] 10/23/2023 Marcella Joseph Tinea unguium B35.1 ; Type 2 diabetes mellitus without complication, without long-term current use of insulin E11.9 ; Pain in toe of left foot M79.675 and Pain in toe of right foot M79.674 Assessments Encounter Date Diagnosis (ICD Code) Assessment Notes Treatment Notes Treatment Clinical Notes Section Notes 10/23/2023 Tinea unguium (ICD-10 - B35.1) 10/23/2023 Type 2 diabetes mellitus without complication, without long-term current use of insulin (ICD-10 - E11.9) 10/23/2023 Pain in toe of left foot (ICD-10 - M79.675) 10/23/2023 Pain in toe of right foot (ICD-10 - M79.674) Plan Of Treatment Next Appt Details Follow Up: 3 Months, Reason: Provider Name:Marcella peguero, 04/08/2024 12:30:00 PM, [address] [place] [address], [phone], Procedure Notes * Category Sub-Category Detail Notes [...] as necessary. Patient chooses, no pharmaceutical tx (97806) Progress Notes * Rober HATCH GDOB: 6 (88 yo M)Acc No.[id number]:10/23/2023 Progress Note Patient:?Rober Hatch Provider:?Marcella Joseph DPM :1935???Age:88 Y???Sex:Male Neri e:10/23/2023 Address:[address] [place] [address] [place] Pcp:Pritesh Malcolm MD Subjective: * Chief Complaints: * ???Painful nail(s) aggrevate d by shoes causing difficulty standing/walking * HPI: ???Painful Nails:?Pt States Last PCP Visit:?Date:?05/25/2023 * ROS:?General/Constitutional:?Nausea?denies.?Vomiting?denies.?Hunger Thirst?denies.?Loss appetite?denies.?Chills?denies.?Fatigue?denies.?Fever?denies.?Night Sweats?denies.?Unexplained weight loss?denies.?Unexplained weight gain?denies.?HEENTM:?Dentures?denies.?Dizziness?denies.?Glasses/contacts?denies.?Retinopathy?de nies.?Blurred/double vision?denies.?TMJ?denies.?Discharge/drainage?denies.?Implants?denies.?Sore throat?denies.?Dental implants?denies.?Hard of hearing ?denies.?Difficulty chewing/swallowing/speaking?denies.?Nose bleeds?denies.?Sore mouth?denies.?Respiratory:?On Oxygen?denies.?Pneumonia/pleurisy?denies.?Bronchitis?denies.?Emphysema?denies.?C oughing?denies.?Cough blood?denies.?Shortness of breath?denies.?Wheezing?denies.?Cardiovascular:?Pacemaker?denies.?MVP?denies.?WPW?denies.?CHF?denies.?Heart attack?denies.?Septal defect?denies.?Rapid beat?denies.?Chest pain ?denies.?Atrial Fib.?denies.?Murmur/Palpitations?denies.?Gastrointestinal:?Hemorrhoids?denies.?Stomach/Abdominal pain?denies.?Dark blood stool?denies.?Irritable bowel ?denies.?Constipation?denies.?Diarrhea?denies.?Hematology:?Swelling?denies.?Clots?denies.?Varicose Veins?denies.?Bruising?denies.?Bleeding problem?denies.?Genitourinary:?Blood urine?denies.?Frequent/Painfu/urination/bladder control?denies.?Kidney stones?denies.?Infection (UTI)?denies.?Nephropathy?denies.?sex trans dis (STD)?denies.?Prostate?denies.?Musculoskeletal:?Hammertoes?denies.?Bunions?denies.?Back Pain?denies.?Muscle Cramps/ Resting?denies.?Muscle cramps / walking?denies.?Generalized aches and pains?admits, denies.?Weakness?denies.?Integ.:?Olivarez?denies.?Scars?denies.?Corns/calluses?denies.?Ingrown nails?denies.?Painful nails?denies.?Open Sores?denies.?Rashes?denies.?Neurologic:?Difficulty sleeping?denies.?Brain disorder?denies.?Numbness?denies.?Balance trouble?denies.?Confusion?denies.?Fainting/blackouts?denies.?Tingling?denies.?Tr emors?denies.? * Medical History:? * Surgical History:?right hip replacement 10/12/19bypass surgery * Hospitalization/Major Diagno stic Procedure:?Denies Past Hospitalization * Family History:?Mother: dece ased.?Father: .?Children: alive, diagnosed with Unspecified heart disease, Unspecified essential hypertension.? * Social History:?Tobacco Use:?Tobacco Use/Smoking?Are you a:?nonsmoker ?Additional Findings: Tobacco Non-User?Current non-smoker ?Tobacco use other than smoking?Are you an other tobacco user??No ???Miscellaneous:?Caffeine: yes, frequency:, 1-2 cups per day. ?Children: yes. ?Exercise: yes, walking. ?Marital status: . ?Occupation: retired - [employer]. * Medications:?TakingLosartan Potassium 100 MG Tablet 1 [...] Vitals:?Ht: 5 ft 3 in, Wt: 1 39, BMI: 24.62, Shoe size: 8.5, BP: 123/74 mm Hg, BS: 169, Wt-k.05 kg. * ???Past Orders: ???Lab:HEMOGLOBIN A1C (GLYCO HEMOGLOBIN) (Order Date - 11/28/2022) (Collection Date - 11/28/2022) ? Value Reference Range ?HEMOGLOBIN A1C % (HH) 8.0 * Examination: ???Ophthalmology Referral: ?DIABETES EYE EXAM?Nails: ?NAILS are:?Elongated, overgrown, dystrophic, lytic, greater than 3mm thick, discolored and friable with crumbly malodorous subungual debris, with pain on palpation, 1-5 B/L.? Assessment: * Assessment: 1.?Tinea unguium - B35.1 (Pr imary)?2.?Type 2 diabetes mellitus without complication, without long-term current use of insulin - E11.9?3.?Pain in toe of left foot - M79.675?4.?Pain in toe of right foot - M79.674? [...] as necessary. Patient chooses, no pharmaceutical tx (95098).? * Procedure Codes:?41480 DEBRI DE NAIL, 6 OR MORE * Follow Up:?3 Months * Images: * Sign off status: Completed true * Provider:?Marcella Joseph, DPEl Date:? Generated for Dinorah hernadez/Veena/eTransmitting on:?01/20/2024 10:33 PM EST History and Physical Notes * HPI (History of Present Illness) Category Sub-Category Detail Notes Category Not es Painful Nails Pt States Last PCP Visit: Date:: 05/25/2023 Examination Category Sub-Category Detail Notes Category Not es Ophthalmology Referral DIABETES EYE EXAM Diabeti c Retinopathy Screening:: Yes Findings of Diabetic Eye Exam:: no retin opathy Nails NAILS are: Elongated, overg rown, dystrophic, lytic, greater than 3mm thick, discolored and friable with crumbly malodorous subungual debris, with pain on palpation, 1-5 B/L
--- OUTSIDE RECORDS SUMMARY | 2024-01-20 22:34 | XMS_ITS | Patient Health Record ---
Author Organization [facility] Address [address] [place] [address] Care Team Providers Care Mitten Stitcher Name Role Phone Pritesh Malcolm MD Primary Care Provider Marcella Vidal Unavailable [phone] Allergies Allergen (clinical drug ingredient) Drug/Non Drug [...] Bandages Unknown Drug Allergy Active Substance with 6-qgtokfu-8-methylgluta ryl-coenzyme A reductase inhibitor mechanism of action (substance) Statins Unknown Drug Allergy Active Reason For Referral No Information Medications Medication SIG (Take, Route, Frequency, Duration) Notes Start Date End Date Status Fish Oil 1000 MG Orally Once a day Active Acetaminophen Active Vitamin C Active metFORMIN HCl 500 MG 1 tablet with a alina l Orally Twice a day Active Lisinopril Not-Takin g Metoprolol Succinate Active Lisinopril 20 MG Orally Once a day Not-Taking Losartan Potassium 100 MG 1 tablet Orally Once a day Active Lisinopril-hydroCHLORO thiazide 20-25 MG 1 tablet Orally Once a day for 30 day(s) Not-Taking Vitamin D3 Active Praluent 75 MG/ML Subcutaneous injection twice a month Not-Taking Aspirin Active Vitamin B12 Active Immunizations Vaccine Route Administration Date Status Comme nts Influenza Unknown 10/22/2017 Administered Influenza Unknown 12/06/2018 Administered Influenza Unknown 11/28/2019 Administered Influenza Unknown 11/12/2020 Administered Influenza Unknown 07/30/2022 Refused Influenza Unknown 11/10/2022 Administered Social History Tobacco Use: Social History Observation [...] Are you an other tobacco user? 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) Active confirmed Problem Type 2 diabetes mellitus without complication (161365939) Type 2 diabetes mellitus without complication, without long-term current use of insulin (E11.9) Active confirmed Vital Signs Blood pressure diastolic 74 mm Hg 10/23/2023 Height 5 ft 3 in in 10/23/2023 Blood pressure systolic 123 mm Hg 10/23/2023 Weight 139 lbs 10/23/2023 BMI 24.62 kg/m2 10/23/2023 Encounters Encounter Location Date Provider Diagnosis [address] [address] 03/03/2023 Marcella Perica Xerosis of skin L85.3 ; Tinea unguium B35.1 ; Type 2 diabetes mellitus without complication, without long-term current use of insulin E11.9 ; Pain in toe of left foot M79.675 and Pain in toe of right foot M79.[address] [address] 07/14/2023 Marcella Perica Xerosis of skin L85.3 ; Tinea unguium B35.1 ; Type 2 diabetes mellitus without complication, without long-term current use of insulin E11.9 ; Pain in toe of left foot M79.675 and Pain in toe of right foot M79.[address] [address] 10/23/2023 Marcella Perica Tinea unguium B35.1 ; Type 2 diabetes mellitus without complication, without long-term current use of insulin E11.9 ; Pain in toe of left foot M79.675 and Pain in toe of right foot M79.674 [facility] [address] [place] [address] 06/02/2023 Marcella Joseph [facility] [address] [place] [address] 01/20/2024 Marcella Joseph Assessments Encounter Date Diagnosis (ICD Code) Assessment Notes Treatment Notes Treatment Clinical Notes Section Notes 03/03/2023 Tinea unguium (ICD-10 - B35.1) 03/03/2023 Xerosis of skin (ICD-10 - L85.3) 10/23/2023 Type 2 diabetes mellitus without complication, without long-term current use of insulin (ICD-10 - E11.9) 10/23/2023 Tinea unguium (ICD-10 - B35.1) 07/14/2023 Xerosis of skin (ICD-10 - L85.3) 10/23/2023 Pain in toe of left foot (ICD-10 - M79.675) 07/14/2023 Tinea unguium (ICD-10 - B35.1) 03/03/2023 Type 2 diabetes mellitus without complication, without long-term current use of insulin (ICD-10 - E11.9) 03/03/2023 Pain in toe of left foot (ICD-10 - M79.675) 10/23/2023 Pain in toe of right foot (ICD-10 - M79.674) 07/14/2023 Type 2 diabetes mellitus without complication, without long-term current use of insulin (ICD-10 - E11.9) 07/14/2023 Pain in toe of left foot (ICD-10 - M79.675) 03/03/2023 Pain in toe of right foot (ICD-10 - M79.674) 07/14/2023 Pain in toe of right foot (ICD-10 - M79.674) Plan Of Treatment Pending Test Test Name Order Date [id number] NAIL, 6 OR MORE 01/05/2018 [id number] SKIN LESIONS, OVER 4 10/06/19 20 Next Appt Details Provider Name:Marcella peguero, 04/08/2024 12:30:00 PM, [address] [place], [address], Insurance Providers Payer Name Payer Address Payer Phone Subscriber Number Group Number Insured Name Patient Relationship to Insured Coverage Start Date Coverage End Date Medicare [employer] [address] [place] [address] [id number] Rober Hatch Self - patient is the insured [facility] [address] [place] [address] [phone] [id number] Rober Hatch Self - patient is the insured Medical (General) History Medical History History ICD Code Arthritis hip replacement, RT Coronary artery disease type II diabetes TIA Measles Chicken pox Surgical History Surgery Date(Month/Year) right hip replacement 10/12/19 bypass surgery
[2024-01-21] MEDS: 0.9 % Sodium Chloride Flush 3 ML SYRINGE IVFLUSH ×3 (00:15→19:48)
[2024-01-21] MEDS: Melatonin 3 MG TABLET 6 MG PO ×2 (00:26→19:48)
[2024-01-21 03:43] VITALS: BP 127/69; PULSE 71; RESP 18; TEMP 36.9; O2SAT 93
[2024-01-21 06:00] VITALS: BMI 21.8
[2024-01-21 07:20] LABS: Glucose, Whole Blood 163 mg/dL (60-115)
[2024-01-21 07:38] LABS: MANUAL DIFF FLAG NO
[2024-01-21 07:45] LABS: Basophils Absolute Auto 0.1 X10*3/uL (0.0-0.2); Basophils Percent Auto 0.5 % (0-2); Eosinophils Absolute Auto 0.2 X10*3/uL (0.0-0.4); Eosinophils Percent Auto 1.8 % (0-4); Hematocrit 41.4 % (42.0-52.0); Hemoglobin 14.5 g/dl (14.0-18.0); Imm Gran Abs Auto 0.05 X10*3/uL (0.00-0.03); Imm Gran Pct Auto 0.5 % (0.0-0.4); Lymphocytes Absolute Auto 1.2 X10*3/uL (1.2-4.9); Lymphocytes Percent Auto 12.1 % (20-40); Mean Corpuscular Hemoglobin 31.9 pg (27.0-33.0); Mean Platelet Volume 9.9 fL (9.4-12.4); Monocytes Absolute Auto 0.7 X10*3/uL (0.1-1.2); Monocytes Percent Auto 6.6 % (2-11); Neutrophils Absolute Auto 7.7 x10*3/uL (2.0-8.3); Neutrophils Percent Auto 78.5 % (45-73); Platelet Count 198 X10*3/uL (160-400); Red Blood Count 4.55 X10*6/uL (4.60-5.80); Red Cell Distribution Width 11.9 % (11.0-16.0); White Blood Count 9.9 X10*3/uL (4.8-10.8)
[2024-01-21 07:57] LABS: Anion Gap 18 (12-20); Blood Urea Nitrogen 26 mg/dL (9-16); Calcium 9.5 mg/dL (8.4-10.2); Carbon Dioxide 24 mmol/L (22-29); Chloride 104 mmol/L (96-108); Creatinine Clr Calc Pharmacy 47.1; Estimated Glomerular Filt Rate > 60; Glucose Random 172 mg/dL (60-115); Potassium 3.9 mmol/L (3.3-5.1); Sodium 142 mmol/L (135-145)
[2024-01-21 08:00] VITALS: BP 167/83; PULSE 62; RESP 20; TEMP 36.9; O2SAT 92
[2024-01-21 08:01] LABS: Anion Gap 19 (12-20); Blood Urea Nitrogen 26 mg/dL (9-16); Calcium 9.5 mg/dL (8.4-10.2); Carbon Dioxide 23 mmol/L (22-29); Chloride 103 mmol/L (96-108); Creatinine Clr Calc Pharmacy 47.7; Estimated Glomerular Filt Rate > 60; Glucose Random 165 mg/dL (60-115); Potassium 4.1 mmol/L (3.3-5.1); Sodium 141 mmol/L (135-145)
[2024-01-21] MEDS: Cyanocobalamin (Vitamin B-12) 500 MCG TABLET PO (08:35)
[2024-01-21] MEDS: Metoprolol Succinate ER 100 MG TAB.ER.24H PO (08:35)
[2024-01-21] MEDS: Ascorbic Acid 500 MG TABLET PO (08:36)
[2024-01-21] MEDS: Insulin Lispro 100 UNIT/ML 3 ML VIAL SUBCUT ×3 (08:36→22:29)
[2024-01-21] MEDS: Tamsulosin HCL 0.4 MG CAPSULE PO (08:36)
[2024-01-21] MEDS: Aspirin Enteric Coated 81 MG TABLET.DR PO (08:36)
[2024-01-21] MEDS: Enoxaparin Sodium 40 MG/0.4 ML SYRINGE SUBCUT (08:36)
[2024-01-21 11:10] LABS: Glucose, Whole Blood 253 mg/dL (60-115)
--- NOTE | 2024-01-21 11:16 | P.PNIM_ITS ---
Subjective Subjective Date of Service: 01/21/24 Interval History: Seen and evaluated this morning complains of urgency and frequency Echo reported possible vegetation on Mitral valve Cultures pending no other events Review of Systems Review of Systems: Yes all other systems are reviewed and are negative Physical Exam 2 Vital Signs: Vital Signs: Last Vital Signs Temp 98.4 F 01/21/24 08:00 Pulse 62 01/21/24 08:00 Resp 20 01/21/24 08:00 BP 167/83 H 01/21/24 08:00 Pulse Ox 92 01/21/24 08:00 O2 Del Method Room Air 01/21/24 08:00 BMI result Body Mass Index 21.8 Const: Other: Constitutional : interactive, not in distress Cardiovascular : no JVP, no lower extremity edema Respiratory : bilateral chest movement, not in resp distress Gastrointestinal: soft, lax, Non tender Skin : Warm, Dry Neurological : Alert & oriented to self only otherwise confused, No focal deficit Objective Data Active Medications Acetaminophen (Acetaminophen 325 Mg Tablet) 975 mg PO Q6H PRN PRN Reason: Pain, Mild (Pain Scale 1-3), fever or headache Ascorbic Acid (Ascorbic Acid 500 Mg Tablet) 500 mg PO DAILY [facility] Last Admin: 01/21/24 08:36 Dose: 500 mg Documented By: TONY Aspirin (Aspirin Enteric Coated 81 Mg Tablet.) 81 mg PO DAILY [facility] Last Admin: 01/21/24 08:36 Dose: 81 mg Documented By: TONY Calcium Carbonate (Calcium Carbonate 750 Mg Tab.Chew) 750 mg PO Q4H PRN PRN Reason: Heartburn Cyanocobalamin (Cyanocobalamin (Vitamin B-12) 500 Mcg Tablet) 500 mcg PO DAILY [facility] Last Admin: 01/21/24 08:35 Dose: 500 mcg Documented By: TONY Enoxaparin Sodium (Enoxaparin Sodium 40 Mg/0.4 Ml Syringe) 40 mg SUBCUT Q24H [facility] Last Admin: 01/21/24 08:36 Dose: 40 mg Documented By: TONY Finasteride (Finasteride 5 Mg Tablet) 5 mg PO BEDTIME [facility] Glucose (Glucose Gel 15 Gm Gel..Gram.) 15 gm PO Q15M PRN; Protocol PRN Reason: per Hypoglycemia Standing Ord. Dextrose (D10) 250 mls @ 750 mls/hr IV Q15M PRN; Protocol PRN Reason: per Hypoglycemia Standing Ord. Insulin Human Lispro (Insulin Lispro 100 Unit/Ml 3 Ml Vial) 0 unit SUBCUT QIDACHS [facility]; Protocol Last Admin: 01/21/24 08:36 Dose: 2 unit Documented By: TONY Magnesium Hydroxide (Milk Of Magnesia 30 Ml Oral.Susp) 30 ml PO DAILY PRN PRN Reason: Constipation Melatonin (Melatonin 3 Mg Tablet) 6 mg PO BEDTIME PRN PRN Reason: Insomnia Last Admin: 01/21/24 00:26 Dose: 6 mg Documented By: LUIS ANTONIO Metoprolol Succinate (Metoprolol Succinate Er 100 Mg Tab.Er.24h) 100 mg PO DAILY [facility]; Protocol Last Admin: 01/21/24 08:35 Dose: 100 mg Documented By: TONY Ondansetron HCl (Ondansetron Hcl 4 Mg/2 Ml Vial) 4 mg IVPUSH Q8H PRN PRN Reason: Nausea and Vomiting Oxycodone HCl (Oxycodone Hcl Immed Release 5 Mg Tablet) 5 mg PO Q6H PRN PRN Reason: Pain, Moderate(Pain Scale 4-6) Sodium Chloride (0.9 % Sodium Chloride Flush 3 Ml Syringe) 3 ml IVFLUSH QSHIFT [facility] Last Admin: 01/21/24 08:37 Dose: 3 ml Documented By: TONY Tamsulosin HCl (Tamsulosin Hcl 0.4 Mg Capsule) 0.4 mg PO DAILY [facility] Last Admin: 01/21/24 08:36 Dose: 0.4 mg Documented By: TONY Labs 01/21/24 06:38 01/21/24 06:38 Labs: Laboratory Results - last 24 hr 01/20/24 01/20/24 01/20/24 11:20 17:02 21:21 MCV MCH MCHC RDW Plt Count MPV Immature Gran % (Auto) Neut % (Auto) Lymph % (Auto) Sebastian % (Auto) Eos % (Auto) Baso % (Auto) Lymph # (Auto) Sebastian # (Auto) Eos # (Auto) Baso # (Auto) Abs Immat Gran (auto) Absolute Neuts (auto) Absolute Nucleated RBC Nucleated RBC % (auto) Anion Gap Estim Creat Clear Calc Estimated GFR POC Glucose 123 H 219 H 146 H Random Glucose Calcium 01/21/24 01/21/2401/20/24 06:37 06:38 07:12 MCV 91.0 MCH 31.9 MCHC 35.0 RDW 11.9 Plt Count 198 MPV 9.9 Immature Gran % (Auto) 0.5 H Neut % (Auto) 78.5 H Lymph % (Auto) 12.1 L Sebastian % (Auto) 6.6 Eos % (Auto) 1.8 Baso % (Auto) 0.5 Lymph # (Auto) 1.2 Sebastian # (Auto) 0.7 Eos # (Auto) 0.2 Baso # (Auto) 0.1 Abs Immat Gran (auto) 0.05 H Absolute Neuts (auto) 7.7 Absolute Nucleated RBC 0.000 Nucleated RBC % (auto) 0.0 Anion Gap 18 19 Estim Creat Clear Calc 47.1 47.7 Estimated GFR > 60 > 60 POC Glucose 163 H Random Glucose 172 H 165 H Calcium 9.5 9.5 01/21/24 11:03 MCV MCH MCHC RDW Plt Count MPV Immature Gran % (Auto) Neut % (Auto) Lymph % (Auto) Sebastian % (Auto) Eos % (Auto) Baso % (Auto) Lymph # (Auto) Sebastian # (Auto) Eos # (Auto) Baso # (Auto) Abs Immat Gran (auto) Absolute Neuts (auto) Absolute Nucleated RBC Nucleated RBC % (auto) Anion Gap Estim Creat Clear Calc Estimated GFR POC Glucose 253 H Random Glucose Calcium Assessment and Plan (1) Nocturia: Status: Acute (2) Type 2 diabetes mellitus without complications: Status: Acute (3) Multiple falls: Status: Acute Plan Patient is an 88-year-old male with a past medical history significant for HTN, HLD, T2DM CAD status post CABG 2015, who presented to the ED yesterday due to frequent falls, weakness and dizziness. multiple falls, physical deconditioning head/neck CT negative, XR hip, shoulder, chest negative for fx PT\OT rec STR , family prefer home with PT and services Abnormal Echo reported possible vegetation pending blood culture nocturia due to BPH UA negative Started Tamsulosin Use Finasteride To use bedside urinal, schedule bathroom time Urology consult per family request HTN BP stable on Metoprolol CAD s/p CABG in 2016 continue ASA 81 T2DM hold metformin diabetic diet sliding scale insulin full code VTE prophylaxis: lovenox Patient with multiple recent falls, abnormal Echo pending blood cultures requiring overnight stay for further workup and monitoring. Quality Stroke Does the patient have a stroke diagnosis?: No VTE Prior VTE?: No VTE Risk Level:: Medical - moderate - high VTE Device Contraindication: Treatment Not Indicated VTE Drug Contraindication: N/A - Med Ordered
[2024-01-21 11:43] LABS: Estimated Average Glucose 160 mg/dL; Hemoglobin A1C 200.2709 umol/L; Hemoglobin A1c % 7.2 % (<6.0); Total Hemoglobin (HGBA1C) 3625.5632 umol/L
[2024-01-21 12:00] VITALS: BP 115/71; PULSE 92; RESP 20; TEMP 36.4; O2SAT 95
[2024-01-21 15:35] VITALS: BP 101/64; PULSE 81; RESP 18; TEMP 36.6; O2SAT 96
[2024-01-21 16:33] LABS: Glucose, Whole Blood 109 mg/dL (60-115)
[2024-01-21 19:28] VITALS: BP 138/82; PULSE 82; RESP 18; TEMP 37.3; O2SAT 92
[2024-01-21] MEDS: Finasteride 5 MG TABLET PO (19:48)
[2024-01-21] MEDS: oxyCODONE HCl Immed Release 5 MG TABLET PO (19:48)
[2024-01-21 21:02] LABS: Glucose, Whole Blood 193 mg/dL (60-115)
[2024-01-21 23:29] VITALS: BP 116/62; PULSE 85; RESP 20; TEMP 36.7; O2SAT 91
[2024-01-22 03:02] VITALS: BP 111/70; PULSE 54; RESP 20; TEMP 36.6; O2SAT 95
[2024-01-22 06:00] VITALS: BMI 22.8
[2024-01-22 07:00] LABS: MANUAL DIFF FLAG NO
[2024-01-22 07:06] LABS: Basophils Percent Auto 0.5 % (0-2); Eosinophils Absolute Auto 0.5 X10*3/uL (0.0-0.4); Eosinophils Percent Auto 6.7 % (0-4); Hemoglobin 13.3 g/dl (14.0-18.0); Imm Gran Abs Auto 0.03 X10*3/uL (0.00-0.03); Imm Gran Pct Auto 0.4 % (0.0-0.4); Lymphocytes Absolute Auto 1.4 X10*3/uL (1.2-4.9); Lymphocytes Percent Auto 17.2 % (20-40); Mean Corpuscular HGB Conc 35.9 g/dl (31.0-36.0); Mean Corpuscular Hemoglobin 32.9 pg (27.0-33.0); Mean Corpuscular Volume 91.6 fL (80.0-98.0); Monocytes Absolute Auto 1.1 X10*3/uL (0.1-1.2); Neutrophils Percent Auto 62.2 % (45-73); Platelet Count 173 X10*3/uL (160-400); Red Blood Count 4.04 X10*6/uL (4.60-5.80); White Blood Count 8.1 X10*3/uL (4.8-10.8)
[2024-01-22 07:24] LABS: Anion Gap 15 (12-20); Blood Urea Nitrogen 35 mg/dL (9-16); Calcium 8.7 mg/dL (8.4-10.2); Carbon Dioxide 23 mmol/L (22-29); Chloride 105 mmol/L (96-108); Creatinine Clr Calc Pharmacy 49.7; Estimated Glomerular Filt Rate > 60; Glucose Random 145 mg/dL (60-115); Potassium 3.9 mmol/L (3.3-5.1); Sodium 139 mmol/L (135-145)
[2024-01-22 07:57] LABS: Glucose, Whole Blood 160 mg/dL (60-115)
[2024-01-22 08:00] VITALS: BP 156/78; PULSE 76; RESP 18; TEMP 36.4; O2SAT 93
[2024-01-22 08:04] VITALS: BP 156/76; PULSE 80
[2024-01-22] MEDS: Insulin Lispro 100 UNIT/ML 3 ML VIAL SUBCUT ×2 (08:25→12:19)
[2024-01-22] MEDS: 0.9 % Sodium Chloride Flush 3 ML SYRINGE IVFLUSH (08:26)
[2024-01-22] MEDS: Ascorbic Acid 500 MG TABLET PO (08:26)
[2024-01-22] MEDS: Metoprolol Succinate ER 100 MG TAB.ER.24H PO (08:26)
[2024-01-22] MEDS: Tamsulosin HCL 0.4 MG CAPSULE PO (08:26)
[2024-01-22] MEDS: Enoxaparin Sodium 40 MG/0.4 ML SYRINGE SUBCUT (08:26)
[2024-01-22] MEDS: Aspirin Enteric Coated 81 MG TABLET.DR PO (08:26)
[2024-01-22] MEDS: Cyanocobalamin (Vitamin B-12) 500 MCG TABLET PO (08:26)
--- NOTE | 2024-01-22 08:44 | P.CNUR_ITS ---
History of Present Illness Consult details Consult date: 01/22/24 Narrative: 88-year-old male with a past medical history significant for HTN, HLD, T2DM CAD status post CABG 2015, who presented to the ED yesterday due to frequent falls, weakness and dizziness. His son is the main historian for the patient at this time. There is some reported confusion that has been worsening and the patient is followed by Neurology and is supposed to have a repeat MRI soon. He reportedly had a fall while exiting his car yesterday where he fell onto his right side and did hit his head shoulder and hip but denies any loss of consciousness. His was present and reported that seconds later she did see him and did not notice any loss of consciousness either. His son is very concerned about his recent falls and persistent nocturia which is contributing to lack of sleep and his concern for him falling in the middle of the night. Review of Systems 2 Review of Systems: Yes all other systems are reviewed and are negative Constitutional: Constitutional: Reports no additional constitutional complaints Eyes: Eyes: Reports no additional eye complaints ENT: Reports system reviewed and no additional complaints, except as documented Cardiovascular: Cardiovascular: Reports no additional cardiovascular complaints Respiratory: Respiratory: Reports no additional respiratory complaints Gastrointestinal: Gastrointestinal: Reports no additional gastrointestinal complaints Genitourinary: Genitourinary: Reports as per HPI Musculoskeletal: Musculoskeletal: Reports no additional musculoskeletal complaints Integumentary/Breasts: Skin/Breast: Reports system reviewed and no additional complaints, except as docu Neurologic: Reports system reviewed and no additional complaints, except as documented Psychiatric: Psychiatric: Reports no additional psychiatric complaints Endocrine: Endocrine: Reports no additional endocrine complaints Hematologic/Lymphatic: Hematologic/Lymphatic: Reports no additional hematologic/lymphatic complaints Allergic/Immunologic: Allergic/Immunologic: Reports no additional allergic/immunologic complaints [facility] Past Medical History Medical History Type 2 diabetes mellitus without complications HLD (hyperlipidemia) HTN (hypertension) Multiple falls Dizziness Bundle branch block, right First degree AV block Surgical History Surgical History History of coronary artery bypass graft Social History Social History Household Members: Spouse Housing: Unknown / Unable to assess Comment: 1:1 sitter bedside Patient Tobacco Use Status: Never used Tobacco service: No Meds Allergies Allergy/AdvReac Type Severity Reaction Status Date / Time adhesive tape Allergy Unknown RASH Verified 01/19/24 22:10 amlodipine [From NORVASC] Allergy Unknown UNKNOWN Verified 01/19/24 22:10 ezetimibe [From ZETIA] Allergy Unknown UNKNOWN Verified 01/19/24 22:10 ibuprofen [From MOTRIN] Allergy Unknown UNKNOWN Verified 01/19/24 22:10 Iodinated Contrast Media Allergy Unknown UNKNOWN Verified 01/19/24 22:10 [IODINATED CONTRAST MEDIA - IV DYE] nifedipine [From PROCARDIA] Allergy Unknown UNKNOWN Verified 01/19/24 22:10 Acufrfc-[id number]-OyI Reductase Allergy Unknown MUSCLE PAIN Verified 01/19/24 22:10 Inhibitor [[id number] REDUCTASE INHIBITOR] valsartan [From DIOVAN] Allergy Unknown UNKNOWN Verified 01/19/24 22:10 enalaprilat [From VASOTEC] AdvReac Unknown COUGH Verified 01/19/24 22:10 Active Medications: Current Medications Acetaminophen (Acetaminophen 325 Mg Tablet) 975 mg PO Q6H PRN PRN Reason: Pain, Mild (Pain Scale 1-3), fever or headache Ascorbic Acid (Ascorbic Acid 500 Mg Tablet) 500 mg PO DAILY [facility] Last Admin: 01/22/24 08:26 Dose: 500 mg Aspirin (Aspirin Enteric Coated 81 Mg Tablet.Dr) 81 mg PO DAILY [facility] Last Admin: 01/22/24 08:26 Dose: 81 mg Calcium Carbonate (Calcium Carbonate 750 Mg Tab.Chew) 750 mg PO Q4H PRN PRN Reason: Heartburn Cyanocobalamin (Cyanocobalamin (Vitamin B-12) 500 Mcg Tablet) 500 mcg PO DAILY [facility] Last Admin: 01/22/24 08:26 Dose: 500 mcg Enoxaparin Sodium (Enoxaparin Sodium 40 Mg/0.4 Ml Syringe) 40 mg SUBCUT Q24H [facility] Last Admin: 01/22/24 08:26 Dose: 40 mg Finasteride (Finasteride 5 Mg Tablet) 5 mg PO BEDTIME [facility] Last Admin: 01/21/24 19:48 Dose: 5 mg Glucose (Glucose Gel 15 Gm Gel..Gram.) 15 gm PO Q15M PRN; Protocol PRN Reason: per Hypoglycemia Standing Ord. Dextrose (D10) 250 mls @ 750 mls/hr IV Q15M PRN; Protocol PRN Reason: per Hypoglycemia Standing Ord. Insulin Human Lispro (Insulin Lispro 100 Unit/Ml 3 Ml Vial) 0 unit SUBCUT QIDACHS [facility]; Protocol Last Admin: 01/22/24 08:25 Dose: 2 unit Magnesium Hydroxide (Milk Of Magnesia 30 Ml Oral.Susp) 30 ml PO DAILY PRN PRN Reason: Constipation Melatonin (Melatonin 3 Mg Tablet) 6 mg PO BEDTIME PRN PRN Reason: Insomnia Last Admin: 01/21/24 19:48 Dose: 6 mg Metoprolol Succinate (Metoprolol Succinate Er 100 Mg Tab.Er.24h) 100 mg PO DAILY [facility]; Protocol Last Admin: 01/22/24 08:26 Dose: 100 mg Ondansetron HCl (Ondansetron Hcl 4 Mg/2 Ml Vial) 4 mg IVPUSH Q8H PRN PRN Reason: Nausea and Vomiting Oxycodone HCl (Oxycodone Hcl Immed Release 5 Mg Tablet) 5 mg PO Q6H PRN PRN Reason: Pain, Moderate(Pain Scale 4-6) Last Admin: 01/21/24 19:48 Dose: 5 mg Sodium Chloride (0.9 % Sodium Chloride Flush 3 Ml Syringe) 3 ml IVFLUSH QSHIFT [facility] Last Admin: 01/22/24 08:26 Dose: 3 ml Tamsulosin HCl (Tamsulosin Hcl 0.4 Mg Capsule) 0.4 mg PO DAILY [facility] Last Admin: 01/22/24 08:26 Dose: 0.4 mg Home Medications ?Medication ?Instructions ?Recorded ?Confirmed ?Last Taken ?Type FreeStyle Lite Meter 01/20/24 01/20/24 Unknown History ascorbic acid (vitamin C) 500 mg 500 mg PO DAILY 01/20/24 01/20/24 01/19/24 History tablet aspirin 81 mg tablet,delayed 81 mg PO DAILY 01/20/24 01/20/24 01/19/24 History release cyanocobalamin (vitamin B-12) 500 500 mcg PO DAILY 01/20/24 01/20/24 01/19/24 History mcg tablet metformin 500 mg tablet 500 mg PO BID 01/20/24 01/20/24 01/19/24 History metoprolol succinate 100 mg 100 mg PO DAILY 01/20/24 01/20/24 01/19/24 History tablet,extended release 24 hr Physical Exam 2 Vital Signs: Vital Signs: Last Vital Signs Temp 97.6 F 01/22/24 08:00 Pulse 76 01/22/24 08:00 Resp 18 01/22/24 08:00 BP 156/78 H 01/22/24 08:00 Pulse Ox 93 01/22/24 08:00 O2 Del Method Room Air 01/22/24 08:00 BMI result Body Mass Index 22.8 Results Labs 01/22/24 06:27 01/22/24 06:27 Labs: Abnormal lab results 01/21/24 01/21/24 01/21/24 Range/Units 06:38 11:03 20:34 RBC (4.60-5.80) X10*6/uL Hgb (14.0-18.0) g/dl Hct (42.0-52.0) % Lymph % (Auto) (20-40) % [place] % (Auto) (2-11) % Eos % (Auto) (0-4) % Eos # (Auto) (0.0-0.4) X10*3/uL BUN (9-16) mg/dL POC Glucose 253 H 193 H (60-115) mg/dL Random Glucose (60-115) mg/dL Hemoglobin A1c % 7.2 H (<6.0) % 01/22/24 01/22/24 Range/Units 06:27 07:36 RBC 4.04 L (4.60-5.80) X10*6/uL Hgb 13.3 L (14.0-18.0) g/dl Hct 37.0 L (42.0-52.0) % Lymph % (Auto) 17.2 L (20-40) % [place] % (Auto) 13.0 H (2-11) % Eos % (Auto) 6.7 H (0-4) % Eos # (Auto) 0.5 H (0.0-0.4) X10*3/uL BUN 35 H (9-16) mg/dL POC Glucose 160 H (60-115) mg/dL Random Glucose 145 H (60-115) mg/dL Hemoglobin A1c % (<6.0) % Short CBC 01/22/24 Range/Units 06:27 WBC 8.1 (4.8-10.8) X10*3/uL Hgb 13.3 L (14.0-18.0) g/dl Hct 37.0 L (42.0-52.0) % Plt Count 173 (160-400) X10*3/uL BMP 01/22/24 06:27 Sodium 139 Potassium 3.9 Chloride 105 Carbon Dioxide 23 BUN 35 H Creatinine 0.86 Calcium 8.7 D Urine 01/19/24 Range/Units 23:11 Urine Color Yellow Urine Appearance Clear Urine pH 5.5 (5.0-9.0) Ur Specific [place] 1.020 (1.005-1.025) Urine Protein Negative (Neg-Trace) mg/dL Urine Glucose (UA) Negative (Negative) mg/dL All other labs normal. Assessment and Plan (1) Nocturia: Status: Acute (2) Type 2 diabetes mellitus without complications: Status: Acute Plan tamsulosin, proscar, Discussed with patient to use urinal at bedside during the night to limit walking to bathroom with potential to fall fu outpatient Procedures Date of Service Date of Service: 01/25/24
[2024-01-22 08:46] LABS: Prostate Specific Antigen 1.66 ng/mL (<0.05-4.0)
[2024-01-22 11:38] LABS: Glucose, Whole Blood 193 mg/dL (60-115)
[2024-01-22 11:41] VITALS: BP 128/62; BP 134/71; PULSE 75; PULSE 88
[2024-01-22 11:42] VITALS: BP 134/71; PULSE 76; RESP 18; TEMP 36.1; O2SAT 94
--- NOTE | 2024-01-22 12:54 | MHC.CM.PN ---
PT is now recommending home with services and 01/09 supervision. Patient has been medically cleared for dc to home today, with services. A referral has been made to NA, who is aware of today;'s dc. Last IMM addressed on 01/20/2024.
--- NOTE | 2024-01-22 13:11 | PM.DS ---
DS: Providers Provider Date of Service: 01/22/24 Date of admission: 01/20/24 05:29 Date of discharge: 01/22/24 Primary care physician: Pritesh Malcolm MD Consults: 01/21/24 11:06 Consult to Urology Routine Consulting Provider: [facility] [place] [facility] [place] [facility] Reason for consultation: urgency, nocturnal frequency, family request DS: Diagnosis Discharge Diagnosis (1) Nocturia: Status: Acute (2) Type 2 diabetes mellitus without complications: Status: Acute (3) Physical deconditioning: Status: Acute DS: Summary Hospital Course Hospital Course: Admission note HPI Patient is an 88-year-old male with a past medical history significant for HTN, HLD, T2DM CAD status post CABG 2015, who presented to the ED yesterday due to frequent falls, weakness and dizziness. His son is the main historian for the patient at this time. There is some reported confusion that has been worsening and the patient is followed by Neurology and is supposed to have a repeat MRI soon. He reportedly had a fall while exiting his car yesterday where he fell onto his right side and did hit his head shoulder and hip but denies any loss of consciousness. His was present and reported that seconds later she did see him and did not notice any loss of consciousness either. His son is very concerned about his recent falls and persistent nocturia which is contributing to lack of sleep and his concern for him falling in the middle of the night. He has no URI symptoms, chest pain, shortness of breath, lower extremity edema, nausea or vomiting. Hospital course # multiple falls, physical deconditioning head/neck CT negative, XR hip, shoulder, chest negative for fx. PT\OT recommended STR. family prefer home with PT and services which will be provided by [facility]. # Abnormal Echo reported by wood machine carver as artifact or possible vegetation. no signs or symptoms to suggest infective endocarditis. blood cultures negative. to follow final report after discharge. # nocturia due to BPH UA negative for infection. Started Tamsulosin and Finasteride. Advised to use bedside urinal, schedule bathroom time. Urology consulted and recommended to continue medications and use urinal for now. To follow with urology as outpatient as needed. Discharge plan Start Tamsulosin and Finasteride Use Urinal at bedtime schedule bathroom time before going to bed Follow with Urology as outpatient with dr Melendez-Murray if problem continues in 3-4 weeks Physical therapy as tolerated Time Attestation Discharge Coordination Time (in mins): 38 Quality: Safe Use of Opioids Does Pt have an Active Cancer Diagnosis on the Problem List?: No Quality: Stroke Does the patient have a stroke diagnosis?: No Physical Exam Vital Signs: Vital Signs: Last Vital Signs Temp 96.9 F 01/22/24 11:42 Pulse 76 01/22/24 11:42 Resp 18 01/22/24 11:42 BP 134/71 01/22/24 11:42 Pulse Ox 94 01/22/24 11:42 O2 Del Method Room Air 01/22/24 11:42 BMI result Body Mass Index 22.8 Const: Other: Constitutional : interactive, not in distress Cardiovascular : no JVP, no lower extremity edema Respiratory : bilateral chest movement, not in resp distress Gastrointestinal: soft, lax, Non tender Skin : Warm, Dry Neurological : Alert & oriented to self only otherwise confused, No focal deficit DS: Data Data Completed and Pending Labs on day of discharge: Laboratory Results - last 24 hr 01/21/24 01/21/24 01/22/24 16:25 20:34 06:27 WBC 8.1 RBC 4.04 L Hgb 13.3 L Hct 37.0 L MCV 91.6 MCH 32.9 MCHC 35.9 RDW 12.0 Plt Count 173 MPV 10.0 Immature Gran % (Auto) 0.4 Neut % (Auto) 62.2 Lymph % (Auto) 17.2 L Randall % (Auto) 13.0 H Eos % (Auto) 6.7 H Baso % (Auto) 0.5 Lymph # (Auto) 1.4 Randall # (Auto) 1.1 Eos # (Auto) 0.5 H Baso # (Auto) 0.0 Abs Immat Gran (auto) 0.03 Absolute Neuts (auto) 5.0 Absolute Nucleated RBC 0.000 Nucleated RBC % (auto) 0.0 Sodium 139 Potassium 3.9 Chloride 105 Carbon Dioxide 23 Anion Gap 15 BUN 35 H Creatinine 0.86 Estim Creat Clear Calc 49.7 Estimated GFR > 60 POC Glucose 109 193 H Random Glucose 145 H Calcium 8.7 D Prostate Specific Ag 1.66 01/22/24 01/22/24 07:36 11:33 WBC RBC Hgb Hct MCV MCH MCHC RDW Plt Count MPV Immature Gran % (Auto) Neut % (Auto) Lymph % (Auto) Randall % (Auto) Eos % (Auto) Baso % (Auto) Lymph # (Auto) Randall # (Auto) Eos # (Auto) Baso # (Auto) Abs Immat Gran (auto) Absolute Neuts (auto) Absolute Nucleated RBC Nucleated RBC % (auto) Sodium Potassium Chloride Carbon Dioxide Anion Gap BUN Creatinine Estim Creat Clear Calc Estimated GFR POC Glucose 160 H 193 H Random Glucose Calcium Prostate Specific Ag Preliminary micro results at discharge 01/20/24 16:45 Blood Culture - Preliminary Blood - Venous No growth after 24 hours. 01/20/24 16:46 Blood Culture - Preliminary Blood - Venous No growth after [address] scan - head: Radiologist's impression: ITS Impressions Cervical Spine CT 01/19/24 23:57 IMPRESSION: 1. No evidence of acute intracranial hemorrhage or edematous territorial infarction. 2. 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 Extensive underlying microangiopathy. 3. No evidence of acute fracture or traumatic subluxation of the cervical spine. Moderate to advanced multilevel degenerative spondyloarthropathy of the cervical spine. Electronically signed by: Carlos Mustafa DO 01/20/2024 01:00 AM EST RP Head CT 01/19/24 23:57 IMPRESSION: 1. No evidence of acute intracranial hemorrhage or edematous territorial infarction. 2. 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 Extensive underlying microangiopathy. 3. No evidence of acute fracture or traumatic subluxation of the cervical spine. Moderate to advanced multilevel degenerative spondyloarthropathy of the cervical spine. Electronically signed by: Carlos Mustafa DO 01/20/2024 01:00 AM EST RP Chest X-Ray 01/20/24 03:10 IMPRESSION: *No acute abnormalities identified. *Status post CABG. *Single 2 mm well-circumscribed enhancing projection with the right upper pulmonary lobe. This finding may represent a chronic calcified pulmonary granuloma. Electronically signed by: Rubio Macias MD 01/20/2024 04:27 AM EST RP Hip/Pelvis X-Ray 12/11/24 03:10 IMPRESSION: No acute abnormalities identified. Status post bilateral hip arthroplasties. Electronically signed by: Rubio Macias MD 01/20/2024 04:25 AM EST RP Shoulder X-Ray 01/20/24 03:10 IMPRESSION: *Marked chronic arthropathic changes of the right glenohumeral joint. No acute abnormalities identified. Electronically signed by: Rubio Macias MD 01/20/2024 04:29 AM EST RP Discharge Plan Discharge Anticipated Discharge Date/Time: 01/22/24 12:47 Patient Disposition: Home Health Service Discharge Diagnosis: Urine urgency Referrals: Inés HERNANDE[facility] [Outside] - 1 Week Pritesh Malcolm MD [Primary Care Provider] - 1 Week Discharge Medications: New tamsulosin 0.4 mg Capsule 0.4 mg PO DAILY Qty: 90 0RF finasteride 5 mg Tablet 5 mg PO BEDTIME Qty: 90 0RF Continued metformin 500 mg Tablet 500 mg PO BID metoprolol succinate 100 mg Tablet Extended Release 24 Hr 100 mg PO DAILY cyanocobalamin (vitamin B-12) 500 mcg Tablet 500 mcg PO DAILY ascorbic acid (vitamin C) 500 mg Tablet 500 mg PO DAILY (DME) FreeStyle Lite Meter aspirin 81 mg Tablet,Delayed Release (Dr/Ec) 81 mg PO DAILY Discharge Orders: Discharge Order (Routine); Ordered 01/22/24 Ordered By: London Briones Diet: Advance to usual diet Activity on Discharge: As tolerated Stand Alone Forms: Patient Portal Discharge page Print Language: Malay Care Plan Goals: Start Tamsulosin and Finasteride Use Urinal at bedtime schedule bathroom time before going to bed Follow with Urology as outpatient with dr Angel if problem continues in 3-4 weeks Physical therapy as tolerated Health Concerns: Urine urgency and frequency physical deconditioning Plan of Treatment: Tamsulosin, Finasteride Urology follow up Physical therapy Assessment: as above
== END 2024-01-22 14:26 | disposition home health service (06) | DRG 726 ==
LOC: HO.ED 01-20 05:36 → HO.EDOVER 01-20 05:52 → HO.IMC 01-20 19:56
PROVIDERS: Hospitalist; Nurse Practitioner Family; Admitting Provider Physician Assistant; Emergency Provider Emergency Medicine; PCP Internal Medicine; Visit Provider Student in an Organized Health Care Education/Training Program
DX: N40.1 Benign prostatic hyperplasia with lower urinary tract symptoms (principal); I25.10 Atherosclerotic heart disease of native coronary artery without angina pectoris; Z95.1 Presence of aortocoronary bypass graft; R93.1 Abnormal findings on diagnostic imaging of heart and coronary circulation; I10 Essential (primary) hypertension; R29.6 Repeated falls; Z91.81 History of falling; R53.81 Other malaise; R35.1 Nocturia; Z20.822 Contact with and (suspected) exposure to COVID-19; Z79.82 Long term (current) use of aspirin; Z79.84 Long term (current) use of oral hypoglycemic drugs; Z79.899 Other long term (current) drug therapy
CPT/HCPCS: 0241U; 36415; 70450; 71045; 72125; 73030; 73502; 80048; 80053; 81001; 82947; 83036; 83880; 84153; 84484; 85025; 85610; 85730; 87040; 93005; 93306; 97112; 97116; 97162; 97166; 97530; 99285; J1650; Q9957

== ENCOUNTER → 2024-01-19 22:17 | Outpatient (BNV) | payer MEDICARE, SELFPAY | PROVIDERS: Admitting Provider Physician Assistant; Emergency Provider Emergency Medicine; PCP Internal Medicine; Visit Provider Internal Medicine Cardiovascular Disease | DX: R94.31 Abnormal electrocardiogram [ECG] [EKG] (principal) | CPT/HCPCS: 93010 ==

== ENCOUNTER 2024-01-20 05:29 | Outpatient (BNV) | payer MEDICARE, SELFPAY | END 2024-01-20 07:00 | PROVIDERS: Admitting Provider Physician Assistant; Emergency Provider Emergency Medicine; PCP Internal Medicine; Visit Provider Internal Medicine Cardiovascular Disease | DX: I34.89 Other nonrheumatic mitral valve disorders (principal); I34.0 Nonrheumatic mitral (valve) insufficiency; I35.8 Other nonrheumatic aortic valve disorders; R93.1 Abnormal findings on diagnostic imaging of heart and coronary circulation | CPT/HCPCS: 93306 ==

== ENCOUNTER → 2024-01-20 05:29 | Outpatient (BNV) | payer MEDICARE, SELFPAY | PROVIDERS: Admitting Provider Physician Assistant; Emergency Provider Emergency Medicine; PCP Internal Medicine; Visit Provider Student in an Organized Health Care Education/Training Program | DX: R29.6 Repeated falls (principal); R42 Dizziness and giddiness; R35.1 Nocturia | CPT/HCPCS: 99223; 99499 ==

== ENCOUNTER → 2024-01-20 05:29 | Outpatient (BNV) | payer MEDICARE, SELFPAY | PROVIDERS: Admitting Provider Physician Assistant; Emergency Provider Emergency Medicine; PCP Internal Medicine; Visit Provider Urology | DX: R35.1 Nocturia (principal); E11.9 Type 2 diabetes mellitus without complications | CPT/HCPCS: 99222 ==

== ENCOUNTER 2024-04-29 13:12 | Outpatient (AMB) | payer MEDICARE, SELFPAY ==
--- NOTE | 2024-04-29 13:36 | MHC.PC.OV ---
Vital Signs 04/29/24 13:40 Height 5 ft 4 in Weight 119 lb 0.794 oz BMI 20.4 BP 140/72 H Blood Pressure Location Lt brachial Position Sitting Pulse 71 Pulse Source Pulse Oximeter Temp 97.1 F Temp Source Temporal Artery Scan Pulse Oximetry (%) 97 Oxygen Delivery Method Room Air Intake Visit Reasons: establish care Intake Note: Patient is a new patient here to establish care for DM, HTN, Urinary Incontinence, OA, Arthritis, Dementia, Gait instability. Transferring care from Pritesh Cooper. Medical records have been requested and have not received. J2Ee Android Developer Required: No Order Entry: Present (Son and spouse) Accompanied by: Son Allergies adhesive tape Allergy (Unknown, Verified 04/29/24 13:36) RASH amlodipine [From NORVASC] Allergy (Unknown, Verified 04/29/24 13:36) UNKNOWN ezetimibe [From ZETIA] Allergy (Unknown, Verified 04/29/24 13:36) UNKNOWN ibuprofen [From MOTRIN] Allergy (Unknown, Verified 04/29/24 13:36) UNKNOWN Iodinated Contrast Media [IODINATED CONTRAST MEDIA - IV DYE] Allergy (Unknown, Verified 04/29/24 13:36) UNKNOWN nifedipine [From PROCARDIA] Allergy (Unknown, Verified 04/29/24 13:36) UNKNOWN Uhpndms-JQX-OyG Reductase Inhibitor [SAEZRCJ-OQC-AUW REDUCTASE INHIBITOR] Allergy (Unknown, Verified 04/29/24 13:36) MUSCLE PAIN valsartan [From DIOVAN] Allergy (Unknown, Verified 04/29/24 13:36) UNKNOWN enalaprilat [From VASOTEC] Adverse Reaction (Unknown, Verified 04/29/24 13:36) COUGH Medication List - Last Reconciled 04/29/24 by Brittney Hurtado PA-C ascorbic acid (vitamin C) 500 mg PO DAILY aspirin 81 mg PO DAILY cholecalciferol (vitamin D3) 25 mcg PO DAILY cyanocobalamin (vitamin B-12) 500 mcg PO DAILY finasteride 5 mg PO BEDTIME [FreeStyle Lite Meter ] metformin 500 mg PO TID metoprolol succinate ER 100 mg PO DAILY omega 4-hni-msa-fish oil 300-1,000 mg 1 cap PO DAILY tamsulosin 0.4 mg PO DAILY Tobacco use date assessed: 04/29/24 Fall risk assessment: 2 + Falls in past year (01/20/24) Last assessed Fall Risk: 04/29/24 Dental Screening Dental Screen Date: 04/29/24 Did you have a dental visit in the last 12 months?: Yes Did you have a dental problem in the last 6 months where you did not have access to dental care?: No Was dental information given to patient?: Patient has dentist HPI establish care HPI Details ED year old male with past medical history of hypertension, hyperlipidemia, diabetes mellitus, memory impairment and urinary incontinence coming to the office for the 1st time. Presenting with nocturia, characterized by waking five or six times a night to urinate, causing sleep disturbances. He previously took Proscar (finasteride) and Flomax (tamsulosin); Proscar was discontinued due to significant itching. Frequency of nocturia worsened after cessation of Proscar and remains disruptive, alongside mild cognitive impairments, possibly exacerbated by inadequate sleep. Fluid intake is restricted after an early evening meal to help alleviate symptoms. He is averse to catheter use, concerned about the risk of infection. The patient's current regimen includes tamsulosin without evident relief in nocturia. [facility] Medical History Nocturia Type 2 diabetes mellitus without complications HLD (hyperlipidemia) HTN (hypertension) Multiple falls Dizziness Bundle branch block, right First degree AV block Surgical History History of coronary artery bypass graft Social History Household Members: Spouse Housing: House Alcohol intake: never Comment: 1:1 sitter bedside Patient Tobacco Use Status: Never used Tobacco e-Cigarette/Vaping Use: Never Used Second Hand Smoke Exposure: No service: No Current occupational status: retired Cognitive needs: Yes (wheelchair, walker) Hearing needs: No Vision needs: Yes Questionnaire PHQ-9 Over the last 2 weeks, how often have you been bothered by any of the following problems? 1. Little interest or pleasure in doing things: not at all 2. Feeling down, depressed, or hopeless: not at all 3. Trouble falling or staying asleep, or sleeping too much: not at all 4. Feeling tired or having little energy: not at all 5. Poor appetite or overeating: not at all 6. Feeling bad about yourself - or that you are a failure or have let yourself or your family down: not at all 7. Trouble concentrating on things, such as reading the newspaper or watching television: not at all 8. Moving or speaking so slowly that other people could have noticed. Or the opposite - being so fidgety or restless that you have been moving around a lot more than usual: not at all 9. Thoughts that you would be better off or of hurting yourself in some way: not at all Total score: 0 Depression Screening Interpretation: Negative Depression Screening Done: Yes Source: Developed by Drs. Refugio Dhillon, Manuela Zhao, Ishmael Azevedo and colleagues, with an educational sudha from [employer]. Thrive Questionnaire Date Thrive assessed: 04/29/24 I am a: Patient What is your living situation today?: I have a steady place to live Within the past 12 months, did the food you bought not last and you didn't have the money to get more?: Never true Within the past 12 months, did you worry whether your food would run out before you got money to buy more?: Never true Do you have trouble paying for medicines?: No Do you have trouble getting transportation to medical appointments?: No Do you have trouble paying your heating and electricity bill?: No Do you have trouble taking care of your child, family member or friend?: No Do you have trouble with day-to-day activities such as bathing, preparing meals, shopping, managing finances, etc.?: No Are you currently unemployed and looking for a job?: No Are you interested in more education?: No Please select the resources that you would like help with: None Currently or been in a relationship where the following occur: No concerns reported THRIVE Score: 0 AUDIT C Alcohol Use Questionnaire (AUDIT-C) 1. How often do you have a drink containing alcohol?: Never Total Score: 0 NESS-7 AMB Questionnaire NESS-7 Date NESS - 7 assessed: 04/29/24 Feeling nervous, anxious, or on edge: 0 = Not at all Not being able to stop or control worryin = Not at all Worrying too much about different things: 0 = Not at all Trouble relaxin = Not at all Being so restless that it is hard to sit still: 0 = Not at all Becoming easily annoyed or irritable: 0 = Not at all Feeling afraid as if something awful might happen: 0 = Not at all Total NESS-7 score (0-4 normal; 5-9 mild; 10-14 moderate; 15-21 severe): 0 Source: Developed by Drs. Refugio Dhillon, Manuela Zhao, Ishmael Azevedo and colleagues, with an educational sudha from [employer]. Review of Systems Const Denies body aches, Denies chills, Denies fever(s) and Denies poor appetite Eyes Reports no additional complaints Card Denies chest pain, Denies irregular heart rhythm, Denies lightheadedness and Denies dyspnea Resp Denies cough and Denies dyspnea GI Denies abdominal pain, Denies diarrhea, Denies nausea and Denies vomiting Reports as per HPI Musc Reports abnormal gait, Reports back pain and Reports limited range of motion Skin/Breast Reports system reviewed and no additional complaints, except as documented Neuro Reports abnormal gait Psych Reports no additional complaints Physical exam (Primary Care) Vital Signs: Last Vital Signs Temp 97.1 F 04/29/24 13:40 Pulse 71 04/29/24 13:40 BP 140/72 H 04/29/24 13:40 Pulse Ox 97 04/29/24 13:40 Oxygen Delivery Method Room Air 04/29/24 13:40 BMI result Body Mass Index 20.4 Tobacco/Smoking Status: Tobacco use Status Tobacco use date assessed 04/29/24 04/29/24 13:43 Patient Tobacco Use Status Never used Tobacco 04/29/24 13:39 e-Cigarette/Vaping Use Never Used 04/29/24 13:43 PHQ-9: PHQ-9 Score PHQ-9: Total score 0 04/29/24 13:39 Depression Screening Interpretation: Negative Thrive Assessment: Date of Thrive Assessment Date Thrive assessed 04/29/24 04/29/24 13:39 Currently or been in a relationship where the following occur: No concerns reported Const General: cooperative, healthy appearing, comfortable and no acute distress Orientation/consciousness: patient oriented x3 HENMT Head: Yes normocephalic Ears: hearing grossly normal bilaterally General nose exam: Normal external nose present Eyes General: appearance normal, both eyes and all related structures Conjunctivae: conjunctivae normal Neck Neck: Yes full ROM and Yes no lymphadenopathy Resp Effort & Inspection: normal respiratory effort Auscultation: clear to auscultation bilaterally, no crackles, no rales, no rhonchi and no wheezes Cardio Rate: regular rate Rhythm: regular rhythm Skin General skin exam: no rashes or lesions noted Neuro General: patient oriented x3 Gait exam (Neuro): Normal gait present Extrem General: Yes normal to inspection, Yes full ROM and No edema Psych Affect: normal affect Attitude: cooperative Insight: Good insight present (Psych) Judgement: Good judgement present (Psych) Coding Level of Care Code New Pt Level 4 (60396) Diagnoses Osteoarthritis M19.90 Memory impairment R41.3 Urinary incontinence R32 Diabetes mellitus E11.9 Gait instability R26.81 HLD (hyperlipidemia) E78.5 HTN (hypertension) I10 Assessment & Plan Assessment & Plan (1) Osteoarthritis: Comment: scott knees Code(s): M19.90 - Unspecified osteoarthritis, unspecified site Category: Medical Plan: Patient utilizes lift chair as he can not stand up easily and uses walker as needed for ambulation. On Tylenol as needed for pain. (2) Memory impairment: Comment: Isidoro 2022 MRI ordered 01/2024 Code(s): R41.3 - Other amnesia Category: Medical Plan: Was previously being evaluated by Neurology. Previous PCP ordered for MRI of the brain which was declined by the patient. Continue to monitor at this time and follow up with Neurology. (3) Urinary incontinence: Comment: declined Urology Code(s): R32 - Unspecified urinary incontinence Category: Medical Plan: The plan involves maintaining the use of tamsulosin while assessing its impact on nocturia. Proscar was stopped due to pruritus; alternative medications will be explored if necessary. Fluid intake remains restricted post-evening, and discussion regarding catheterization surfaced concerns about infection risks. The use of antihistamines for aiding rest is approved, being cautious of urinary side effects. We will consult a urologist about possible alternatives, such as condom catheters. (4) Diabetes mellitus: Comment: last A1c 7.9% (01/2024) Code(s): E11.9 - Type 2 diabetes mellitus without complications Category: Medical Plan: Decrease the amount of carbohydrates such as pasta, bread, rice, and potatoes and limit the amount of sweets. Although fruits are generally healthy they should be eaten in moderation as they are still high in sugar. Hemoglobin A1c goal of less than 7%. On metformin 500 mg twice daily. Ordered for updated blood work (5) Gait instability: Code(s): R26.81 - Unsteadiness on feet Category: Medical Plan: Uses walker as needed for ambulation. Currently working with PT and OT (6) HLD (hyperlipidemia): Code(s): E78.5 - Hyperlipidemia, unspecified Category: Medical Plan: Avoid foods that are high in cholesterol such as red meat, fried foods, eggs and baked goods. Triglyceride goal of less than 150 and LDL goal of less than 100. (7) HTN (hypertension): Code(s): I10 - Essential (primary) hypertension Category: Medical Plan: Continue on current blood pressure medication. Avoid salt intake and encourage healthy diet and regular exercise. Plan - Avoid consuming fluids after early evening meals to reduce nocturia. - Consider discussing condom catheters and other options with the urologist. - Employ pelvic floor exercises as recommended. - Use a night-time antihistamine cautiously to aid sleep. - Schedule follow-up appointments for blood pressure checks and urological consultations. - Contact healthcare provider if symptoms worsen or for further inquiries. This note was constructed using voice recognition software. While every effort has been made to ensure accuracy and opto mechanical engineer, still areas may have been included sometimes these areas may affect the content or meeting of the given symptoms. Total time spent caring for the patient today was 30 minutes. This includes time spent before the visit reviewing the chart, time spent during the visit, and time spent after the visit and documentation. Patient was informed and verbally consented to the use of an ambient scribe for clinic note documentation during this visit. Orders: Orders Comprehensive Met. Panel Today Z00.00 - Encounter for general adult medical examination without abnormal findings PSA, Ultra Sensitive Today Z00.00 - Encounter for general adult medical examination without abnormal findings Vitamin B12 and Folate Today Z00.00 - Encounter for general adult medical examination without abnormal findings UA CC w/rflx Micro + Cult Today R35.89 - Other polyuria Lipid Panel Today E78.00 - Pure hypercholesterolemia, unspecified Complete Blood Count Auto Diff Today Z00.00 - Encounter for general adult medical examination without abnormal findings Free T4 (Free Thyroxine) Today Z00.00 - Encounter for general adult medical examination without abnormal findings TSH reflex Free T4 Today Z00.00 - Encounter for general adult medical examination without abnormal findings Vitamin D 25-OH Total Today Z00.00 - Encounter for general adult medical examination without abnormal findings Hemoglobin A1c Today E11.65 - Type 2 diabetes mellitus with hyperglycemia
[2024-04-29 13:40] VITALS: BP 140/72; PULSE 71; TEMP 36.2; O2SAT 97; BMI 20.4
--- OUTSIDE RECORDS SUMMARY | 2024-04-29 15:35 | XMS_ITS ---
Author Organization [facility] Address [address] [place] [address] Care Team Providers Care Javascript Software Engineer Name Role Phone Pritesh Malcolm MD Primary Care Provider Marcella Vidal [phone] REASON FOR VISIT CX appt Encounters Encounter Location Date Provider Diagnosis [facility] [address] [place] [address] 04/06/2024 Marcella Joseph Plan Of Treatment No Information Progress Notes * Rober HATCH GDOB: 6 (88 yo M)Acc No.[id number]:04/06/2024 Patient:?Rober HATCH :1935???Age:88 Y???Sex:Male Address:[address] [place] [address], [address] * true * Date:? Generated for Dinorah hernadez/Veena/eTransmitting on:?04/29/2024 03:35 PM EDT
--- OUTSIDE RECORDS SUMMARY | 2024-04-29 15:35 | XMS_ITS ---
Author Organization [facility] Address [address] [place] [address] Care Team Providers Care Brush Fabrication Supervisor Name Role Phone Gold MONTES DE OCA, Pritesh Primary Care Provider Marcella Vidal [phone] Encounters Encounter Location Date Provider Diagnosis [facility] [address] [place] [address] 01/22/2024 Marcella Joseph Plan Of Treatment No Information Progress Notes * Rober HATCH GDOB: 6 (88 yo M)Acc No.[id number]:01/22/2024 Progress Note Patient:?Rober HATCH Provider:?Marcella Joseph DPM :1935???Age:88 Y???Sex:Male Neri e:01/22/2024 Address:[address] [place], [place] [id number] Pcp:Pritesh Malcolm MD Subjective: * Chief Complaints: * ??? * Medical History:? Objective: * Vitals:? Assessment: Plan: * Treatment: * Images: * The named appointment provid er may or may not be the originator of this progress note, and it is not deemed complete until electronically signed by the appointment provider. Sign off status: Pending * Provider:?Marcella Joseph DPM Date:? Generated for Dinorah hernadez/Veena/eTransmitting on:?04/29/2024 03:35 PM EDT
--- OUTSIDE RECORDS SUMMARY | 2024-04-29 15:35 | XMS_ITS | Patient Health Record ---
Author Organization [facility] Address [address] [place] [address] Care Team Providers Care Credit Specialist Name Role Phone Pritesh Malcolm MD Primary Care Provider Marcella Vidal Unavailable [phone] Allergies Allergen (clinical drug ingredient) Drug/Non Drug Allergy documented on EMR Reaction Allergy Type Onset Date Status Aleve Unknown Drug Allergy Active diltiazem Cartia XT Unknown Drug Allergy Active valsartan Diovan Unknown Drug Allergy Active Iodine Unknown Drug Allergy Active ferrous sulfate Iron Unknown Drug Allergy A ctive Motrin Unknown Drug Allergy Active amlodipine Norvasc Unknown Drug Allergy Active ezetimibe Zetia Unknown Drug Allergy Active Adhesive Bandages Unknown Drug Allergy Active Substance with 6-wvdnncx-0-methylgluta ryl-coenzyme A reductase inhibitor mechanism of action (substance) Statins Unknown Drug Allergy Active Reason For Referral No Information Medications Medication SIG (Take, Route, Frequency, Duration) Notes Start Date End Date Status Lisinopril 20 MG Orally Once a day Not-Taking metFORMIN HCl 500 MG 1 tablet with a alina l Orally Twice a day Active Lisinopril Not-Takin g Losartan Potassium 100 MG 1 tablet Orally Once a day Active Lisinopril-hydroCHLORO thiazide 20-25 MG 1 tablet Orally Once a day for 30 day(s) Not-Taking Vitamin B12 Active Aspirin Active Praluent 75 MG/ML Subcutaneous injection twice a month Not-Taking Vitamin D3 Active Acetaminophen Active Metoprolol Succinate Active Fish Oil 1000 MG Orally Once a day Active Vitamin C Active Immunizations Vaccine Route Administration Date Status [...] Problem Status W/U Status Risk Notes Problem [id number] Other hammer toe(s) (acquired), right foot (M20.41) Active confirmed Problem Type 2 diabetes mellitus without complication (214071532) Type 2 diabetes mellitus without complication, without long-term current use of insulin (E11.9) Active confirmed Vital Signs Blood pressure diastolic 74 mm Hg 10/23/2023 Height 5 ft 3 in in 10/23/2023 Blood pressure systolic 123 mm Hg 10/23/2023 Weight 139 lbs 10/23/2023 BMI 24.62 kg/m2 10/23/2023 Encounters Encounter Location Date Provider Diagnosis [address] [address] 07/14/2023 Marcella Joseph Xerosis of skin L85.3 ; Tinea unguium B35.1 ; Type 2 diabetes mellitus without complication, without long-term current use of insulin E11.9 ; Pain in toe of left foot M79.675 and Pain in toe of right foot M79.[address] [address] 10/23/2023 Marcella Joseph Tinea unguium B35.1 ; Type 2 diabetes mellitus without complication, without long-term current use of insulin E11.9 ; Pain in toe of left foot M79.675 and Pain in toe of right foot M79.[address] [address] 06/02/2023 Marcella Joseph [address] [address] 01/20/2024 Marcella Joseph [address] [address] 04/06/2024 Marcella Opal Assessments Encounter Date Diagnosis (ICD Code) Assessment Notes Treatment Notes Treatment Clinical Notes Section Notes 07/14/2023 Xerosis of skin (ICD-10 - L85.3) 10/23/2023 Tinea unguium (ICD-10 - B35.1) 10/23/2023 Type 2 diabetes mellitus without complication, without long-term current use of insulin (ICD-10 - E11.9) 10/23/2023 Pain in toe of left foot (ICD-10 - M79.675) 07/14/2023 Tinea unguium (ICD-10 - B35.1) 07/14/2023 Type 2 diabetes mellitus without complication, without long-term current use of insulin (ICD-10 - E11.9) 10/23/2023 Pain in toe of right foot (ICD-10 - M79.674) 07/14/2023 Pain in toe of left foot (ICD-10 - M79.675) 07/14/2023 Pain in toe of right foot (ICD-10 - M79.674) Plan Of Treatment Pending Test Test Name Order Date [id number] NAIL, 6 OR MORE 01/05/2018 [id number] SKIN LESIONS, OVER 4 10/06/19 20 Insurance Providers Payer Name Payer Address Payer Phone Subscriber Number Group Number Insured Name Patient Relationship to Insured Coverage Start Date Coverage End Date Medicare National [employer] [address] [place] [address] [id number] Rober Hatch Self - patient is the insured 1 [employer] [address] [place] [address] [id number] Rober Hatch Self - patient is the insured Medical (General) History Medical History History ICD Code Arthritis hip replacement, RT Coronary artery disease type II diabetes TIA Measles Chicken pox Surgical History Surgery Date(Month/Year) right hip replacement 10/12/19 bypass surgery
--- OUTSIDE RECORDS SUMMARY | 2024-04-29 15:35 | XMS_ITS ---
Author Organization [facility] Address [address] [place] [address] Care Team Providers Care Housekeeper Child Care Name Role Phone Pritesh Malcolm MD Primary Care Provider Mracella Vidal Unavailable [phone] Allergies Allergen (clinical drug ingredient) Drug/Non Drug [...] Bandages Unknown Drug Allergy Active Substance with 5-ljwcbkn-6-methylgluta ryl-coenzyme A reductase inhibitor mechanism of action (substance) Statins Unknown Drug Allergy Active Medications Medication SIG (Take, Route, Frequency, Duration) Notes Start Date End Date Status Lisinopril 20 MG Orally Once a day Not-Taking Lisinopril-hydroCHLORO thiazide 20-25 MG 1 tablet Orally Once a day for 30 day(s) Not-Taking Vitamin B12 Active Praluent 75 MG/ML Subcutaneous injection twice a month Not-Taking Vitamin D3 Active Aspirin Active Acetaminophen Active Metoprolol Succinate Active Fish Oil 1000 MG Orally Once a day Active Vitamin C Active metFORMIN HCl 500 MG 1 tablet with a alina l Orally Twice a day Active Lisinopril Not-Takin g Losartan Potassium 100 MG 1 tablet Orally Once a day Active Encounters Encounter Location Date Provider Diagnosis [facility] [address] [place] [address] 04/08/2024 Marcella Joseph Plan Of Treatment No Information Progress Notes * Rober HATCH GDOB: 6 (88 yo M)Acc No.[id number]:04/08/2024 Progress Note Patient:?Rober HATCH Provider:?Marcella Joseph DPM :1935???Age:88 Y???Sex:Male Neri e:04/08/2024 Address:[address] [place], [place] [id number] Pcp:Pritesh Malcolm MD Subjective: * Chief Complaints: * ??? * Medical History:?Arthritis, hip replacement, RT, Coronary artery disease, type II diabetes, TIA, Measles, Chicken pox. * Medications:?Taking Losartan Potassium 100 MG Tablet 1 tablet Orally Once a day , Taking metFORMIN HCl 500 MG Tablet 1 tablet with a meal Orally , Notes to Pharmacist: Twice a day, Taking Metoprolol Succinate , Taking Acetaminophen , Taking Vitamin C , Taking Fish Oil 1000 MG Capsule Orally Once a day , Taking Aspirin , Taking Vitamin B12 , Taking Vitamin D3 , Not-Taking/PRN Praluent 75 MG/ML Solution Pen-injector Subcutaneous injection twice a month , Not-Taking/PRN Lisinopril 20 MG Tablet Orally Once a day , Not-Taking/PRN Lisinopril-hydroCHLOROthiazide 20-25 MG Tablet 1 tablet Orally Once a day , Not-Taking/PRN Lisinopril * Allergies:?Iodine, Adhesive Bandages, Aleve, Cartia XT, Diovan, Iron, Motrin, Zetia, Norvasc, Statins. Objective: * Vitals:? Assessment: Plan: * Treatment: * Images: * The named appointment provid er may or may not be the originator of this progress note, and it is not deemed complete until electronically signed by the appointment provider. Sign off status: Pending * Provider:?Marcella Joseph DPM Date:? Generated for Dinorah hernadez/Veena/Harpreet on:?04/29/2024 03:34 PM EDT
== END 2024-04-29 14:39 | disposition home or self-care (01) ==
LOC: HO.HMCH 13:13
PROVIDERS: PCP Internal Medicine
DX: M19.90 Unspecified osteoarthritis, unspecified site (principal); R41.3 Other amnesia; R32 Unspecified urinary incontinence; E11.9 Type 2 diabetes mellitus without complications; R26.81 Unsteadiness on feet; E78.5 Hyperlipidemia, unspecified; I10 Essential (primary) hypertension

== ENCOUNTER → 2024-04-29 13:12 | Outpatient (BNVA) | payer MEDICARE, SELFPAY | PROVIDERS: PCP Internal Medicine | DX: M19.90 Unspecified osteoarthritis, unspecified site (principal); R41.3 Other amnesia; R32 Unspecified urinary incontinence; R26.81 Unsteadiness on feet; E11.9 Type 2 diabetes mellitus without complications; E78.5 Hyperlipidemia, unspecified; I10 Essential (primary) hypertension | CPT/HCPCS: 99202 ==

== ENCOUNTER 2024-06-23 12:48 | Outpatient (REF) | payer MEDICARE, SELFPAY ==
--- OUTSIDE RECORDS SUMMARY | 2024-06-23 13:26 | XMS_ITS ---
Author Organization [facility] Address [address] [place] [address] Care Team Providers Care Assistant Project Manager Name Role Phone Pritesh Malcolm MD Primary Care Provider Marcella Vidal Unavailable [phone] Allergies Allergen (clinical drug ingredient) Drug/Non Drug [...] Bandages Unknown Drug Allergy Active Substance with 1-yrahpnn-1-methylgluta ryl-coenzyme A reductase inhibitor mechanism of action [...] Active Encounters Encounter Location Date Provider Diagnosis [facility] [address] [place] [address] 04/08/2024 Marcella Joseph Plan Of Treatment No Information Progress Notes * Rober HATCH GDOB: 6 (88 yo M)Acc No.[id number]:04/08/2024 Progress Note Patient:?Rober HATCH Provider:?Marcella Joseph DPM :1935???Age:88 Y???Sex:Male Neri e:04/08/2024 Address:[address] [place], [place] [id number] Pcp:Pritesh Malcolm MD Subjective: * Chief Complaints: [...] Joseph DPM Date:? Generated for Dinorah hernadez/Veena/Harpreet on:?06/23/2024 01:25 PM EDT
--- OUTSIDE RECORDS SUMMARY | 2024-06-23 13:26 | XMS_ITS ---
Author Organization [facility] Address [address] [place] [address] Care Team Providers Care Director Global Development Name Role Phone Gold MONTES DE OCA, Pritesh Primary Care Provider Marcella Vidal [phone] Encounters Encounter Location Date Provider Diagnosis [facility] [address] [place] [address] 01/22/2024 Marcella Joseph Plan Of Treatment No Information Progress Notes * Rober HATCH GDOB: 6 (88 yo M)Acc No.[id number]:01/22/2024 Progress Note Patient:?Rober HATCH Provider:?Marcella Joseph DPM :1935???Age:88 Y???Sex:Male Neri e:01/22/2024 Address:[address] [place], [place] [id number] Pcp:Pritesh Malcolm MD Subjective: * Chief Complaints: [...] Joseph DPM Date:? Generated for Dinorah hernadez/Veena/eTransmitting on:?06/23/2024 01:25 PM EDT
--- OUTSIDE RECORDS SUMMARY | 2024-06-23 13:26 | XMS_ITS | Patient Health Record ---
Author Organization [facility] Address [address] [place] [address] Care Team Providers Care Controlled Area Checker Name Role Phone Pritesh Malclom MD Primary Care Provider Marcella Vidal Unavailable [phone] Allergies Allergen (clinical drug ingredient) Drug/Non Drug [...] Bandages Unknown Drug Allergy Active Substance with 6-lpvqict-8-methylgluta ryl-coenzyme A reductase inhibitor mechanism of action [...] Problem Status W/U Status Risk Notes Problem 80195809 Other hammer toe(s) (acquired), right foot (M20.41) Active confirmed Problem Type 2 diabetes mellitus without complication, without long-term current use of insulin (E11.9) Active confirmed Vital Signs Blood pressure diastolic 74 mm Hg 10/23/2023 Height 5 ft 3 in in 10/23/2023 Blood pressure systolic 123 mm Hg 10/23/2023 Weight 139 lbs 10/23/2023 BMI 24.62 kg/m2 10/23/2023 Encounters Encounter Location Date Provider Diagnosis [address] [address] 07/14/2023 Marcella Joseph Xerosis of skin L85.3 ; Tinea unguium B35.1 ; Type 2 diabetes mellitus without complication, without long-term current use of insulin E11.9 ; Pain in toe of left foot M79.675 and Pain in toe of right foot M79.[address] [address] 10/23/2023 Marcella Joseph Tinea unguium B35.1 ; Type 2 diabetes mellitus without complication, without long-term current use of insulin E11.9 ; Pain in toe of left foot M79.675 and Pain in toe of right foot M79.[address] [address] 01/20/2024 Marcella Joseph [address] [address] 04/06/2024 Marcella Joseph Assessments Encounter Date Diagnosis (ICD [...] Treatment Pending Test Test Name Order Date [id number] NAIL, 6 OR MORE 01/05/2018 56590-YFDF SKIN LESIONS, OVER 4 10/06/19 20 Insurance Providers Payer Name Payer Address Payer Phone Subscriber Number Group Number Insured Name Patient Relationship to Insured Coverage Start Date Coverage End Date Medicare National Govt [employer] [facility] [address] [place] [address] [id number] Rober Hatch Self - patient is the insured 1 [employer] Blue [employer] [address] [place] [address] [id number] Rober Hatch Self - patient is the insured Medical (General) History Medical History History ICD Code Arthritis hip replacement, RT Coronary artery disease type II diabetes TIA Measles Chicken pox Surgical History Surgery Date(Month/Year) right hip replacement 10/12/19 bypass surgery
--- OUTSIDE RECORDS SUMMARY | 2024-06-23 13:26 | XMS_ITS ---
Author Organization [facility] Address [address] [place] [address] Care Team Providers Care Grocery Specialist Name Role Phone Pritesh Malcolm MD Primary Care Provider Marcella Vidal [phone] REASON FOR VISIT CX appt Encounters Encounter Location Date Provider Diagnosis [facility] [address] [place] [address] 04/06/2024 Marcella Joseph Plan Of Treatment No Information Progress Notes * Rober HATCH GDOB: 6 (88 yo M)Acc No.[id number]:04/06/2024 Patient:?Rober HATCH :1935???Age:88 Y???Sex:Male Address:[address] [place] [address], [address] * true * Date:? Generated for Dinorah hernadez/Veena/eTransmitting on:?06/23/2024 01:26 PM EDT
[2024-06-23 13:43] LABS: Cholesterol 196 mg/dL (<200); HDL Cholesterol 41 mg/dL (>40); LDL Cholesterol Calculated 115 mg/dL (<100); Triglycerides 202 mg/dL (<150)
[2024-06-23 13:58] LABS: Vitamin D 25-OH Total 47.3 ng/mL (>30)
[2024-06-23 14:13] LABS: Folate 7.4 ng/mL (> or = 4.0); Vitamin B12 582 pg/mL (200-900)
[2024-07-01 00:48] LABS: PSA, Ultra Sensitive 2.29 ng/mL
== END 2024-06-23 12:49 | disposition home or self-care (01) ==
LOC: HO.HVNA 12:48
DX: R35.89 Other polyuria (principal); E11.65 Type 2 diabetes mellitus with hyperglycemia; E78.00 Pure hypercholesterolemia, unspecified; Z12.5 Encounter for screening for malignant neoplasm of prostate
CPT/HCPCS: 36415; 80061; 82306; 82607; 82746; 84153

== ENCOUNTER 2024-06-27 09:40 | Outpatient (REF) | payer MEDICARE, SELFPAY ==
[2024-06-28 10:49] LABS: Appearance Urine Clear; Color Urine Yellow; Glucose Urine UA Negative (Negative); Leukocyte Esterase Urine Negative (Negative); Nitrite Urine Negative (Negative); Specific Gravity - Urine 1.015 (1.005-1.025); Urine Blood Negative (Negative); Urine Ketones Negative (Negative); Urine Protein Trace mg/dL (Neg-Trace)
--- OUTSIDE RECORDS SUMMARY | 2024-06-28 11:52 | XMS_ITS ---
Author Organization [facility] Address [address] [place] [address] Care Team Providers Care Distribution Sales Manager Name Role Phone Gold MONTES DE OCA, Pritesh Primary Care Provider Marcella Vidal [phone] Encounters Encounter Location Date Provider Diagnosis [facility] [address] [place] [address] 01/22/2024 Marcella Joseph Plan Of Treatment No Information Progress Notes * Rober HATCH GDOB: 6 (88 yo M)Acc No.[id number]:01/22/2024 Progress Note Patient:?Rober HATCH Provider:?Marcella Joseph DPM :1935???Age:88 Y???Sex:Male Neri e:01/22/2024 Address:[address] [place], [place] [id number] Pcp:Pritesh Malcolm MD Subjective: * Chief Complaints: [...] Joseph DPM Date:? Generated for Dinorah hernadez/Veena/eTransmitting on:?06/28/2024 11:52 AM EDT
--- OUTSIDE RECORDS SUMMARY | 2024-06-28 11:52 | XMS_ITS | Patient Health Record ---
Author Organization [facility] Address [address] [place] [address] Care Team Providers Care Pre Press Manager Name Role Phone Pritesh Malcolm MD Primary Care Provider Marcella Vidal Unavailable [phone] Allergies Allergen (clinical drug ingredient) Drug/Non Drug [...] Bandages Unknown Drug Allergy Active Substance with 6-fyxaihr-4-methylgluta ryl-coenzyme A reductase inhibitor mechanism of action [...] Problem Status W/U Status Risk Notes Problem [id number] Other hammer toe(s) (acquired), right foot (M20.41) Active confirmed Problem Type 2 diabetes mellitus without complication, without long-term current use of insulin (E11.9) Active confirmed Vital Signs Blood pressure diastolic 74 mm Hg 10/23/2023 Height 5 ft 3 in in 10/23/2023 Blood pressure systolic 123 mm Hg 10/23/2023 Weight 139 lbs 10/23/2023 BMI 24.62 kg/m2 10/23/2023 Encounters Encounter Location Date Provider Diagnosis [address] [address] 07/14/2023 Mareclla Joseph Xerosis of skin L85.3 ; Tinea unguium B35.1 ; Type 2 diabetes mellitus without complication, without long-term current use of insulin E11.9 ; Pain in toe of left foot M79.675 and Pain in toe of right foot M79.[address] [address] 10/23/2023 Marcella Joseph Tinea unguium B35.1 ; Type 2 diabetes mellitus without complication, without long-term current use of insulin E11.9 ; Pain in toe of left foot M79.675 and Pain in toe of right foot M79.[address] [address] 01/20/2024 Marcella Joseph [address] [address] 04/06/2024 Marcella Joseph Assessments Encounter Date Diagnosis [...] Treatment Pending Test Test Name Order Date [id number] NAIL, 6 OR MORE 01/05/2018 [id number]-[id number] SKIN LESIONS, OVER 4 10/06/19 20 Insurance Providers Payer Name Payer Address Payer Phone Subscriber Number Group Number Insured Name Patient Relationship to Insured Coverage Start Date Coverage End Date Medicare National Govt Tip Network [facility] [address] [place] [address] [id number] Rober Hatch Self - patient is the insured 1 [employer] Blue [employer] [address] [place] [address] [id number] Rober Hatch Self - patient is the insured Medical (General) History Medical History History ICD Code Arthritis hip replacement, RT Coronary artery disease type II diabetes TIA Measles Chicken pox Surgical History Surgery Date(Month/Year) right hip replacement 10/12/19 bypass surgery
--- OUTSIDE RECORDS SUMMARY | 2024-06-28 11:52 | XMS_ITS ---
Author Organization [facility] Address [address] [place] [address] Care Team Providers Care Sfdc Consultant Name Role Phone Pritesh Malcolm MD Primary Care Provider Marcella Vidal [phone] REASON FOR VISIT CX appt Encounters Encounter Location Date Provider Diagnosis [facility] [address] [place] [address] 04/06/2024 Marcella Joseph Plan Of Treatment No Information Progress Notes * Rober HATCH GDOB: 6 (88 yo M)Acc No.[id number]:04/06/2024 Patient:?Rober HATCH :1935???Age:88 Y???Sex:Male Address:[address] [place] [address], [address] * true * Date:? Generated for Dinorah hernadez/Veena/eTransmitting on:?06/28/2024 11:52 AM EDT
--- OUTSIDE RECORDS SUMMARY | 2024-06-28 11:52 | XMS_ITS ---
Author Organization [facility] Address [address] [place] [address] Care Team Providers Care Director Critical Care Name Role Phone Pritesh Malcolm MD Primary Care Provider Marcella Vidal Unavailable [phone] Allergies Allergen (clinical drug ingredient) Drug/Non Drug [...] Bandages Unknown Drug Allergy Active Substance with 7-uegehfz-0-methylgluta ryl-coenzyme A reductase inhibitor mechanism of action [...] Active Encounters Encounter Location Date Provider Diagnosis [facility] [address] [place] [address] 04/08/2024 Marcella Joseph Plan Of Treatment No Information Progress Notes * Rober HATCH GDOB: 6 (88 yo M)Acc No.[id number]:04/08/2024 Progress Note Patient:?Rober HATCH Provider:?Marcella Joseph DPM :1935???Age:88 Y???Sex:Male Neri e:04/08/2024 Address:[address] [place], [place] [id number] Pcp:Pritesh Malcolm MD Subjective: * Chief Complaints: [...] Joseph DPM Date:? Generated for Dinorah hernadez/Veena/Harpreet on:?06/28/2024 11:52 AM EDT
== END 2024-06-27 09:41 | disposition home or self-care (01) ==
LOC: HO.LNP 09:40
DX: R35.89 Other polyuria (principal)
CPT/HCPCS: 81003

== ENCOUNTER 2024-06-30 10:16 | Outpatient (AMB) | payer MEDICARE, SELFPAY ==
[2024-06-30 10:21] VITALS: BP 120/82; PULSE 66; O2SAT 97
--- NOTE | 2024-06-30 10:21 | MHC.PC.OV ---
Vital Signs 06/30/24 10:21 Height 5 ft 4 in BMI Reason not done Patient refused/unable BP 120/82 Blood Pressure Location Lt brachial Position Sitting Pulse 66 Pulse Source Pulse Oximeter Pulse Oximetry (%) 97 Oxygen Delivery Method Room Air Intake Visit Reasons: 2 month f/u [employer] Employee Required: No Accompanied by: Self / Same As Patient Allergies adhesive tape Allergy (Unknown, Verified 06/30/24 10:37) RASH amlodipine [From NORVASC] Allergy (Unknown, Verified 06/30/24 10:37) UNKNOWN ezetimibe [From ZETIA] Allergy (Unknown, Verified 06/30/24 10:37) UNKNOWN ibuprofen [From MOTRIN] Allergy (Unknown, Verified 06/30/24 10:37) UNKNOWN Iodinated Contrast Media [IODINATED CONTRAST MEDIA - IV DYE] Allergy (Unknown, Verified 06/30/24 10:37) UNKNOWN nifedipine [From PROCARDIA] Allergy (Unknown, Verified 06/30/24 10:37) UNKNOWN Zjkhqhr-BCW-UtH Reductase Inhibitor [TCKOIOP-VMX-EUX REDUCTASE INHIBITOR] Allergy (Unknown, Verified 06/30/24 10:37) MUSCLE PAIN valsartan [From DIOVAN] Allergy (Unknown, Verified 06/30/24 10:37) UNKNOWN enalaprilat [From VASOTEC] Adverse Reaction (Unknown, Verified 06/30/24 10:37) COUGH Medication List - Last Reconciled 06/30/24 by Brittney Hurtado PA-C ascorbic acid (vitamin C) 500 mg PO DAILY aspirin 81 mg PO DAILY cholecalciferol (vitamin D3) 25 mcg PO DAILY cyanocobalamin (vitamin B-12) 500 mcg PO DAILY finasteride 5 mg PO BEDTIME [FreeStyle Lite Meter ] metformin 500 mg PO TID metoprolol succinate ER 100 mg PO DAILY olanzapine 2.5 mg PO BEDTIME omega 6-caq-zmt-fish oil 300-1,000 mg 1 cap PO DAILY tamsulosin 0.4 mg PO DAILY Tobacco use date assessed: 06/30/24 Fall risk assessment: 2 + Falls in past year Last assessed Fall Risk: 06/30/24 Dental Screening Dental Screen Date: 06/30/24 Did you have a dental visit in the last 12 months?: Yes Did you have a dental problem in the last 6 months where you did not have access to dental care?: No Was dental information given to patient?: Patient has dentist HPI 2 month f/u HPI Details 88-year-old male with past medical history of hyperlipidemia, hypertension, diabetes mellitus, first-degree AV block and memory impairment last seen 04/2024 coming in for follow up. Presenting for follow-up regarding management of chronic conditions and new complaints of agitation and urinary frequency. Recently, olanzapine has contributed to managing his evening agitation, though occasional restlessness remains. Lorazepam is prescribed but used sparingly, with nighttime assistance from caregivers. Management for his Diabetes, Hypertension, and Hyperlipidemia continues, with difficulties in obtaining coverage for Praluent. Despite this, cholesterol levels are moderately controlled, and blood pressure readings have been stable but sometimes elevated. Chronic pain is managed with regular Tylenol intake, monitored for efficacy given the patient?s history of orthopedic issues. [facility] Medical History Nocturia Type 2 diabetes mellitus without complications HLD (hyperlipidemia) HTN (hypertension) Multiple falls Dizziness Bundle branch block, right First degree AV block Surgical History History of coronary artery bypass graft Social History Household Members: Spouse Housing: House Alcohol intake: never Comment: 1:1 sitter bedside Patient Tobacco Use Status: Never used Tobacco e-Cigarette/Vaping Use: Never Used Second Hand Smoke Exposure: No service: No Current occupational status: retired Cognitive needs: Yes (wheelchair, walker) Hearing needs: No Vision needs: Yes Questionnaire PHQ-9 Over the last 2 weeks, how often have you been bothered by any of the following problems? 1. Little interest or pleasure in doing things: not at all 2. Feeling down, depressed, or hopeless: not at all 3. Trouble falling or staying asleep, or sleeping too much: not at all 4. Feeling tired or having little energy: not at all 5. Poor appetite or overeating: not at all 6. Feeling bad about yourself - or that you are a failure or have let yourself or your family down: not at all 7. Trouble concentrating on things, such as reading the newspaper or watching television: not at all 8. Moving or speaking so slowly that other people could have noticed. Or the opposite - being so fidgety or restless that you have been moving around a lot more than usual: not at all 9. Thoughts that you would be better off or of hurting yourself in some way: not at all Total score: 0 Depression Screening Interpretation: Negative Depression Screening Done: Yes Source: Developed by Drs. Refugio Dhillon, Manuela Zhao, Ishmael Azevedo and colleagues, with an educational sudha from [employer]. Thrive Questionnaire Date Thrive assessed: 06/30/24 I am a: Patient What is your living situation today?: I have a steady place to live Within the past 12 months, did the food you bought not last and you didn't have the money to get more?: Never true Within the past 12 months, did you worry whether your food would run out before you got money to buy more?: Never true Do you have trouble paying for medicines?: No Do you have trouble getting transportation to medical appointments?: No Do you have trouble paying your heating and electricity bill?: No Do you have trouble taking care of your child, family member or friend?: Yes Do you have trouble with day-to-day activities such as bathing, preparing meals, shopping, managing finances, etc.?: Yes Are you currently unemployed and looking for a job?: No Are you interested in more education?: No Please select the resources that you would like help with: None Currently or been in a relationship where the following occur: No concerns reported THRIVE Score: 0 AUDIT C Alcohol Use Questionnaire (AUDIT-C) 1. How often do you have a drink containing alcohol?: Never 3. How often do you have six or more drinks on one occasion?: Never Total Score: 0 NESS-7 AMB Questionnaire NESS-7 Date NESS - 7 assessed: 06/30/24 Feeling nervous, anxious, or on edge: 3 = Nearly every day Not being able to stop or control worryin = Nearly every day Worrying too much about different things: 3 = Nearly every day Trouble relaxin = Nearly every day Being so restless that it is hard to sit still: 3 = Nearly every day Becoming easily annoyed or irritable: 2 = More than half the days Feeling afraid as if something awful might happen: 2 = More than half the days Total NESS-7 score (0-4 normal; 5-9 mild; 10-14 moderate; 15-21 severe): 19 Source: Developed by Drs. Refugio Dhillon, Manuela Zhao, Ishmael Azevedo and colleagues, with an educational sudha from [employer]. Review of Systems Const Denies body aches, Denies chills, Denies fever(s), Denies headache(s) and Denies poor appetite Eyes Reports no additional complaints ENT Denies dizziness and Denies headache(s) Card Denies chest pain, Denies irregular heart rhythm, Denies lightheadedness and Denies dyspnea Resp Denies cough and Denies dyspnea GI Denies diarrhea, Denies nausea and Denies vomiting Reports no additional complaints Musc Reports no additional complaints and Denies abnormal gait Skin/Breast Reports system reviewed and no additional complaints, except as documented Neuro Denies abnormal gait, Denies dizziness and Denies headache(s) Psych Reports no additional complaints Physical exam (Primary Care) Vital Signs: Last Vital Signs Pulse 66 06/30/24 10:21 BP 120/82 06/30/24 10:21 Pulse Ox 97 06/30/24 10:21 Oxygen Delivery Method Room Air 06/30/24 10:21 Tobacco/Smoking Status: Tobacco use Status Tobacco use date assessed 06/30/24 06/30/24 10:25 Patient Tobacco Use Status Never used Tobacco 06/30/24 10:25 e-Cigarette/Vaping Use Never Used 06/30/24 10:25 PHQ-9: PHQ-9 Score PHQ-9: Total score 0 06/30/24 11:45 Depression Screening Interpretation: Negative Thrive Assessment: Date of Thrive Assessment Date Thrive assessed 06/30/24 06/30/24 10:25 Currently or been in a relationship where the following occur: No concerns reported Const General: cooperative, healthy appearing, comfortable and no acute distress Orientation/consciousness: patient oriented x3 HENMT Head: Yes normocephalic Ears: hearing grossly normal bilaterally General nose exam: Normal external nose present Eyes General: appearance normal, both eyes and all related structures Conjunctivae: conjunctivae normal Neck Neck: Yes full ROM and Yes no lymphadenopathy Resp Effort & Inspection: normal respiratory effort Auscultation: clear to auscultation bilaterally, no crackles, no rales, no rhonchi and no wheezes Cardio Rate: regular rate Rhythm: regular rhythm Skin General skin exam: no rashes or lesions noted Neuro General: patient oriented x3 Gait exam (Neuro): Normal gait present Extrem General: Yes normal to inspection, Yes full ROM and No edema Psych Affect: normal affect Attitude: cooperative Coding Level of Care Code Est Pt Level 3 (88115) Diagnoses HLD (hyperlipidemia) E78.5 Coronary artery disease I25.10 Memory impairment R41.3 Diabetes mellitus E11.9 HTN (hypertension) I10 Assessment & Plan Assessment & Plan (1) HLD (hyperlipidemia): Code(s): E78.5 - Hyperlipidemia, unspecified Category: Medical Plan: Avoid foods that are high in cholesterol such as red meat, fried foods, eggs and baked goods. Triglyceride goal of less than 150 and LDL goal of less than 70. Patient can not tolerate statins or ezetimibe. He was previously on Praluent and found this beneficial however insurance has denied several times. Referral was placed to cardiology (2) Coronary artery disease: Comment: hx of bypass Code(s): I25.10 - Atherosclerotic heart disease of [place] coronary artery without angina pectoris Category: Medical Plan: Patient has a history of a quadruple bypass many years ago he has not seen Cardiology in quite some time. Referral was placed to Cardiology and did advise patient to follow up. They are unsure if they will go through with this referral however I did encourage him to make a 1st visit. Patient is currently asymptomatic. (3) Memory impairment: Comment: [facility] 2022 MRI ordered 01/2024 Code(s): R41.3 - Other amnesia Category: Medical Plan: Patient currently following with Dr. Chaudhry plan to obtain these notes. Patient was given olanzapine nightly for agitation and was given lorazepam by Dr. Chaudhry. (4) Diabetes mellitus: Comment: last A1c 7.9% (01/2024) Code(s): E11.9 - Type 2 diabetes mellitus without complications Category: Medical Plan: Decrease the amount of carbohydrates such as pasta, bread, rice, and potatoes and limit the amount of sweets. Although fruits are generally healthy they should be eaten in moderation as they are still high in sugar. Hemoglobin A1c goal of less than 7%. Currently on metformin t.i.d.. Orders were given to patient for blood work (5) HTN (hypertension): Code(s): I10 - Essential (primary) hypertension Category: Medical Plan: Continue on current blood pressure medication. Avoid salt intake and encourage healthy diet and regular exercise. Plan This note was constructed using voice recognition software. While every effort has been made to ensure accuracy and tobacco scrap sifter, still areas may have been included sometimes these areas may affect the content or meeting of the given symptoms. Total time spent caring for the patient today was 20 minutes. This includes time spent before the visit reviewing the chart, time spent during the visit, and time spent after the visit and documentation. Orders: Referrals Cardiology Referral E78.5 - Hyperlipidemia, unspecified, I25.10 - Atherosclerotic heart disease of [place] coronary artery without angina pectoris, I44.0 - Atrioventricular block, first degree
--- OUTSIDE RECORDS SUMMARY | 2024-06-30 10:46 | XMS_ITS ---
Author Organization [facility] Address [address] [place] [address] Care Team Providers Care Auto Bumper Mechanic Name Role Phone Pritesh Malcolm MD Primary Care Provider Marcella Vidal Unavailable [phone] Allergies Allergen (clinical drug ingredient) Drug/Non Drug [...] Bandages Unknown Drug Allergy Active Substance with 4-ulspxsa-1-methylgluta ryl-coenzyme A reductase inhibitor mechanism of action [...] Active Encounters Encounter Location Date Provider Diagnosis [facility] [address] [place] [address] 04/08/2024 Marcella Joseph Plan Of Treatment No Information Progress Notes * Rober HATCH GDOB: 6 (88 yo M)Acc No.[id number]:04/08/2024 Progress Note Patient:?Rober AHTCH Provider:?Marcella Joseph DPM :1935???Age:88 Y???Sex:Male Neri e:04/08/2024 Address:[address] [place], [place] [id number] Pcp:Pritesh Malcolm MD Subjective: * Chief Complaints: [...] Joseph DPM Date:? Generated for Dinorah hernadez/Veena/Harpreet on:?06/30/2024 10:45 AM EDT
--- OUTSIDE RECORDS SUMMARY | 2024-06-30 10:46 | XMS_ITS ---
Author Organization [facility] Address [address] [place] [address] Care Team Providers Care Manager Placement Name Role Phone Gold MONTES DE OCA, Pritesh Primary Care Provider Marcella Vidal [phone] Encounters Encounter Location Date Provider Diagnosis [facility] [address] [place] [address] 01/22/2024 Marcella Joseph Plan Of Treatment No Information Progress Notes * Rober HATCH GDOB: [birth year] (88 yo M)Acc No.[id number]:01/22/2024 Progress Note Patient:?Rober HATCH Provider:?Marcella Joseph DPM :1935???Age:88 Y???Sex:Male Neri e:01/22/2024 Address:[address] [place], [place] [id number] Pcp:Pritesh Malcolm MD Subjective: * Chief Complaints: [...] Joseph DPM Date:? Generated for Dinorah hernadez/Veena/eTransmitting on:?06/30/2024 10:46 AM EDT
--- OUTSIDE RECORDS SUMMARY | 2024-06-30 10:46 | XMS_ITS ---
Author Organization [facility] Address [address] [place] [address] Care Team Providers Care Pain Medicine Physician Name Role Phone Pritesh Malcolm MD Primary Care Provider Marcella Vidal [phone] REASON FOR VISIT CX appt Encounters Encounter Location Date Provider Diagnosis [facility] [address] [place] [address] 04/06/2024 Marcella Joseph Plan Of Treatment No Information Progress Notes * Rober HATCH GDOB: [birth year] (88 yo M)Acc No.[id number]:04/06/2024 Patient:?Rober HATCH :1935???Age:88 Y???Sex:Male Address:[address] [place] [address], [address] * true * Date:? Generated for Dinorah hernadez/Veena/eTransmitting on:?06/30/2024 10:46 AM EDT
--- OUTSIDE RECORDS SUMMARY | 2024-06-30 10:46 | XMS_ITS | Patient Health Record ---
Author Organization [facility] Address [address] [place] [address] Care Team Providers Care Performance Manager Name Role Phone Pritesh Malcolm MD Primary Care Provider Marcella Vidal Unavailable [phone] Allergies Allergen (clinical drug ingredient) Drug/Non Drug [...] Bandages Unknown Drug Allergy Active Substance with 6-ngzdabl-7-methylgluta ryl-coenzyme A reductase inhibitor mechanism of action [...] Problem Status W/U Status Risk Notes Problem 29614648 Other hammer toe(s) (acquired), right foot (M20.41) Active confirmed Problem Type 2 diabetes mellitus without complication, without long-term current use of insulin (E11.9) Active confirmed Vital Signs Blood pressure diastolic 74 mm Hg 10/23/2023 Height 5 ft 3 in in 10/23/2023 Blood pressure systolic 123 mm Hg 10/23/2023 Weight 139 lbs 10/23/2023 BMI 24.62 kg/m2 10/23/2023 Encounters Encounter Location Date Provider Diagnosis [address] [address] 07/14/2023 Marcella Joseph Xerosis of skin L85.3 ; Tinea unguium B35.1 ; Type 2 diabetes mellitus without complication, without long-term current use of insulin E11.9 ; Pain in toe of left foot M79.675 and Pain in toe of right foot M79.[address] [address] 10/23/2023 Marcella Joseph Tinea unguium B35.1 ; Type 2 diabetes mellitus without complication, without long-term current use of insulin E11.9 ; Pain in toe of left foot M79.675 and Pain in toe of right foot M79.[address] [address] 01/20/2024 Marcella Joseph [address] [address] 04/06/2024 Marcella Joseph Assessments Encounter Date Diagnosis [...] Treatment Pending Test Test Name Order Date [id number] NAIL, 6 OR MORE 01/05/2018 [id number] SKIN LESIONS, OVER 4 10/06/19 20 Insurance Providers Payer Name Payer Address Payer Phone Subscriber Number Group Number Insured Name Patient Relationship to Insured Coverage Start Date Coverage End Date Medicare National Govt [employer] [facility] [address] [place] [address] [id number] Rober Hatch Self - patient is the insured 1 [employer] [address] [place] [address] [phone] [id number] Rober Hatch Self - patient is the insured Medical (General) History Medical History History ICD Code Arthritis hip replacement, RT Coronary artery disease type II diabetes TIA Measles Chicken pox Surgical History Surgery Date(Month/Year) right hip replacement 10/12/19 bypass surgery
== END 2024-06-30 11:35 | disposition home or self-care (01) ==
LOC: HO.HMCH 10:17
PROVIDERS: PCP Internal Medicine
DX: E78.5 Hyperlipidemia, unspecified (principal); I25.10 Atherosclerotic heart disease of native coronary artery without angina pectoris; R41.3 Other amnesia; E11.9 Type 2 diabetes mellitus without complications; I10 Essential (primary) hypertension

== ENCOUNTER → 2024-06-30 10:16 | Outpatient (BNVA) | payer MEDICARE, SELFPAY | PROVIDERS: PCP Internal Medicine | DX: E78.5 Hyperlipidemia, unspecified (principal); I25.10 Atherosclerotic heart disease of native coronary artery without angina pectoris; I10 Essential (primary) hypertension; E11.9 Type 2 diabetes mellitus without complications; R41.3 Other amnesia | CPT/HCPCS: 99212 ==

== ENCOUNTER 2024-07-08 11:29 | Outpatient (REF) | payer MEDICARE, SELFPAY ==
[2024-07-08 12:11] LABS: Estimated Average Glucose 151 mg/dL; Hemoglobin A1c % 6.9 % (<6.0); Total Hemoglobin (HGBA1C) 3290.0894 umol/L
--- OUTSIDE RECORDS SUMMARY | 2024-07-08 12:25 | XMS_ITS ---
Author Organization [facility] Address [address] [place] [address] Care Team Providers Care Adding Machine Mechanic Name Role Phone Pritesh Malcolm MD Primary Care Provider Marcella Vidal Unavailable [phone] Allergies Allergen (clinical drug ingredient) Drug/Non Drug [...] Bandages Unknown Drug Allergy Active Substance with 7-gdezdij-0-methylgluta ryl-coenzyme A reductase inhibitor mechanism of action [...] Active Encounters Encounter Location Date Provider Diagnosis [facility] [address] [place] [address] 04/08/2024 Marcella Joseph Plan Of Treatment No Information Progress Notes * Rober HATCH GDOB: 6 (88 yo M)Acc No.[id number]:04/08/2024 Progress Note Patient:?Rober HATCH Provider:?Marcella Joseph DPM :1935???Age:88 Y???Sex:Male Neri e:04/08/2024 Address:[address] [place], [place] [id number] Pcp:Pritesh Malcolm MD Subjective: * Chief Complaints: [...] Joseph DPM Date:? Generated for Dinorah hernadez/Veena/Harpreet on:?07/08/2024 12:25 PM EDT
== END 2024-07-08 11:30 | disposition home or self-care (01) ==
LOC: HO.HVNA 11:29
DX: E11.9 Type 2 diabetes mellitus without complications (principal)
CPT/HCPCS: 36415; 83036

== ENCOUNTER 2024-07-13 13:31 | Outpatient (REF) | payer MEDICARE, SELFPAY ==
[2024-07-13 13:40] LABS: Appearance Urine Clear; Color Urine Yellow; Glucose Urine UA 500 mg/dL (Negative); Leukocyte Esterase Urine Trace (Negative); Nitrite Urine Negative (Negative); PH 5.5 (5.0-9.0); UMIC TRIGGER UACC YES; Urine Blood Negative (Negative); Urine Ketones Negative (Negative); Urine Protein Trace mg/dL (Neg-Trace)
--- OUTSIDE RECORDS SUMMARY | 2024-07-13 13:42 | XMS_ITS ---
Author Organization [facility] Address [address] [place] [address] Care Team Providers Care Tree Shear Operator Name Role Phone Pritesh Malcolm MD Primary Care Provider Marcella Vidal Unavailable [phone] Allergies Allergen (clinical drug ingredient) Drug/Non Drug [...] Bandages Unknown Drug Allergy Active Substance with 5-oqluhpo-9-methylgluta ryl-coenzyme A reductase inhibitor mechanism of action [...] Active Encounters Encounter Location Date Provider Diagnosis [facility] [address] [place] [address] 04/08/2024 Marcella Joseph Plan Of Treatment No Information Progress Notes * Rober HATCH GDOB: 6 (88 yo M)Acc No.[id number]:04/08/2024 Progress Note Patient:?Rober HATCH Provider:?Marcella Joseph DPM :1935???Age:88 Y???Sex:Male Neri e:04/08/2024 Address:[address] [place], [place] [id number] Pcp:Pritesh Malcolm MD Subjective: * Chief Complaints: [...] Joseph DPM Date:? Generated for Dinorah hernadez/Veena/Harpreet on:?07/13/2024 01:42 PM EDT
[2024-07-13 13:43] LABS: Bacteria Urine None Seen (None Seen); Hyaline Casts Urine 0-2 /LPF (0-2); RBC Urine 0-2 /HPF (0-2); Squamous Epithelial Cell Urine 0-2 /HPF (0-2); WBC Urine 0-5 /HPF (0-5)
== END 2024-07-13 13:32 | disposition home or self-care (01) ==
LOC: HO.HVNA 13:31
DX: N40.1 Benign prostatic hyperplasia with lower urinary tract symptoms (principal); R35.89 Other polyuria
CPT/HCPCS: 81001

== ENCOUNTER 2024-07-15 12:52 | Emergency (ER) | payer MEDICARE, SELFPAY ==
[2024-07-15] VITALS (8 sets, daily range): BP systolic 135–206; BP diastolic 70–122; PULSE 81–106; RESP 15–25; TEMP 37–37.2; O2SAT 92–98; BMI 25.1
--- NOTE | ~2024-07-15 | CT_ITS ---
EXAMINATION: CT HEAD WITHOUT CONTRAST CLINICAL INFORMATION: Altered mental status. Weakness. COMPARISON: 01/19/2024. TECHNIQUE: Contiguous axial imaging was performed from the skull base to vertex without intravenous administration of contrast. This CT examination was performed using dose optimization techniques as appropriate, variously including the following: *Automated exposure control *Adjustment of mA and/or kV according to patient size (this includes techniques or standardized protocols for targeted exams where dose is matched to indication/reason for exam; i.e. extremities or head) *Use of iterative reconstruction technique FINDINGS: Significantly motion degraded exam, limiting sensitivity of the study. There is no evidence of intracranial hemorrhage or extra-axial fluid collection. There is no mass effect, or edema. No CT evidence of acute territorial infarct. Ventricles, sulci, and cisterns are normal in size and configuration for patient age. No hydrocephalus. No midline shift. Negative hyperdense MCA sign. Negative insular ribbon sign. Patchy periventricular and deep white matter hypoattenuation is consistent with moderate to severe small vessel ischemic changes. 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 Normal sella. Atheromatous calcification of the bilateral carotid siphons and V4 segments vertebral arteries bilaterally. Calcification of the anterior and superior falx. Globes and orbits are significantly motion degraded. There are bilateral lens replacements. No extracranial soft tissue abnormalities. The paranasal sinuses, mastoid air cells, and tympanic cavities are normally aerated. Right nasal septal deviation with spurring. No suspicious bony abnormalities. There are no acute fractures evident. CT/CT head/brain wo IV con IMPRESSION: 1. Significantly motion degraded examination, limiting sensitivity. Within these confines, there is no acute intracranial abnormality. 2. 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 Electronically signed by: Pete Persaud MD 07/15/2024 03:02 PM EDT
--- NOTE | ~2024-07-15 | XR_ITS ---
EXAMINATION: XR CHEST CLINICAL INFORMATION: Weakness, confusion COMPARISON: 01/20/2024. TECHNIQUE: 2 views of the chest were obtained. 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 Cardiac and mediastinal contours are normal. The aorta is calcified. No hilar abnormalities. Lungs demonstrate calcified pleural plaques bilaterally. Lungs otherwise clear. No pleural effusion or pneumothorax. 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 Degenerative changes throughout the spine. XR/XR chest 2V IMPRESSION: 1. Sternotomy and CABG. 2. Calcified pleural plaques bilaterally. No superimposed active disease. 3. Severe arthropathy bilateral shoulder joints. Electronically signed by: Pete Persaud MD 07/15/2024 01:55 PM EDT
--- NOTE | 2024-07-15 13:04 | ED_ITS ---
HPI - Altered Mental Status General Chief Complaint: General Medical Stated Complaint: AMS X 2 DAYS Time Seen by Provider: 07/15/24 12:53 Source: patient and EMS Mode of arrival: EMS Limitations: no limitations History of Present Illness ED Provider: Marcelle Mckeon NP HPI narrative: Patient is an 88-year-old male who presents emergency department via EMS for evaluation of altered mental status. Per family report to EMS he is alert and oriented x3 at baseline with minor confusion but over the past 2 days he has been off, more confused, oriented to person not really following commands which is atypical for him. At baseline patient is incontinent. When asking the patient why he is here he states ?I do not know?, when asked if he is feeling well he states ?I feel lousy? but is not able to elaborate much further. Related Data Home Medications ?Medication ?Instructions ?Recorded ?Confirmed FreeStyle Lite Meter 01/20/24 06/30/24 ascorbic acid (vitamin C) 500 mg 500 mg PO DAILY 01/20/24 06/30/24 tablet aspirin 81 mg tablet,delayed 81 mg PO DAILY 01/20/24 06/30/24 release cyanocobalamin (vitamin B-12) 500 500 mcg PO DAILY 01/20/24 06/30/24 mcg tablet metoprolol succinate 100 mg 100 mg PO DAILY 01/20/24 06/30/24 tablet,extended release 24 hr cholecalciferol (vitamin D3) 25 25 mcg PO DAILY 04/29/24 06/30/24 mcg (1,000 unit) capsule metformin 500 mg tablet 500 mg PO TID 04/29/24 06/30/24 omega 7-ami-vka-fish oil 300 1 cap PO DAILY 04/29/24 06/30/24 mg-1,000 mg capsule Previous Rx's ?Medication ?Instructions ?Recorded finasteride 5 mg tablet 5 mg PO BEDTIME #90 tabs 01/22/24 tamsulosin 0.4 mg capsule 0.4 mg PO DAILY #90 caps 05/04/24 olanzapine 2.5 mg tablet 2.5 mg PO BEDTIME #30 tabs 07/12/24 sulfamethoxazole 800 1 tab PO BID 7 days #14 tabs 07/13/24 mg-trimethoprim 160 mg tablet (Bactrim DS) Allergies Allergy/AdvReac Type Severity Reaction Status Date / Time adhesive tape Allergy Unknown RASH Verified 07/15/24 13:08 amlodipine [From NORVASC] Allergy Unknown UNKNOWN Verified 07/15/24 13:08 ezetimibe [From ZETIA] Allergy Unknown UNKNOWN Verified 07/15/24 13:08 ibuprofen [From MOTRIN] Allergy Unknown UNKNOWN Verified 07/15/24 13:08 Iodinated Contrast Media Allergy Unknown UNKNOWN Verified 07/15/24 13:08 [IODINATED CONTRAST MEDIA - IV DYE] nifedipine [From PROCARDIA] Allergy Unknown UNKNOWN Verified 07/15/24 13:08 Wtpxuzz-AKY-WhF Reductase Allergy Unknown MUSCLE PAIN Verified 07/15/24 13:08 Inhibitor [UOWEJQA-TOU-MYM REDUCTASE INHIBITOR] valsartan [From DIOVAN] Allergy Unknown UNKNOWN Verified 07/15/24 13:08 enalaprilat [From VASOTEC] AdvReac Unknown COUGH Verified 07/15/24 13:08 Review of Systems 2 Review of Systems: Yes Unobtainable due to mental status PMFSH Past Medical History Attestation statement: The following information was validated with the patient. Source: old records reviewed Medical History Nocturia Type 2 diabetes mellitus without complications HLD (hyperlipidemia) HTN (hypertension) Multiple falls Dizziness Bundle branch block, right First degree AV block Surgical History History of coronary artery bypass graft Social History Social History Household Members: Spouse Housing: House Alcohol intake: never Comment: 1:1 sitter bedside Patient Tobacco Use Status: Never used Tobacco Smoked in Last 30 Days: No e-Cigarette/Vaping Use: Never Used Second Hand Smoke Exposure: No Use of substances other than those prescribed or required for medical reasons: No Advance Directives: No Advance Directives Information Provided: Yes Do you have a plan to hurt others: No Plan service: No Current occupational status: retired Cognitive needs: Yes (wheelchair, walker) Hearing needs: No Vision needs: Yes Physical Exam ED Vital Signs: Vital Signs - 24 hr 07/15/24 13:07 07/15/24 13:26 07/15/24 16:15 Temperature 98.9 F 98.9 F 98.6 F Pulse Rate 100 84 106 H Respiratory Rate 25 H 16 18 Blood Pressure 206/93 H 181/105 H 194/111 H Pulse Oximetry 93 96 92 Oxygen Delivery Method Room Air Room Air Room Air 07/15/24 16:17 07/15/24 16:52 07/15/24 17:54 Temperature 98.6 F Pulse Rate 106 H 94 81 Respiratory Rate 18 18 Blood Pressure 197/111 H 173/122 H 174/109 H Pulse Oximetry 96 98 Oxygen Delivery Method Room Air Room Air 07/15/24 19:39 Temperature Pulse Rate 86 Respiratory Rate 20 Blood Pressure 143/87 H Pulse Oximetry 95 Oxygen Delivery Method Room Air BMI result Body Mass Index 25.1 Appearance: Alert.?Oriented to person and place, disoriented to time and event No acute distress.?Normal affect. Eyes: Pupils equal, round and reactive to light.? ENT: Pharynx normal.?? Neck: Normal inspection.? Neck supple.?? CVS: Heart sounds normal. Normal heart rate and rhythm.? Pulses normal.?? Respiratory: No respiratory distress.? Lung sounds clear to auscultation bilaterally?? Abdomen: Soft and non-tender. Normoactive bowel sounds. ?? Skin: Skin warm and dry.? Normal skin color.? Extremities: No lower extremity edema.? No calf ttp? Neuro: Moves all extremities spontaneously. Sensation intact bilaterally. CN II- XII intact. No focal neuro deficits. Motor strength: right upper extremity 3/5, left upper extremity 3/5,, right lower extremity 53/5, left lower extremity 3 /5.?Speech: Normal, Ckhwea-co-iaet test: Normal Course Reevaluation(s) Reevaluation #1: Patient's son and are at bedside. Reports that he has been restless, not sleeping for the past 2 nights, having urinary frequency. Had a urinalysis performed with primary care doctor's office a couple days ago who started on Bactrim to 2 days' worth did not take any today, has yet to receive any information regarding culture reports. Son does state that he has been on olanzapine and was otherwise doing really well up until the past few days. On evaluation, and urinalysis 07/12/2024 without compelling evidence to suggest urinary tract infection, no culture is pending Time: 14:12 Reevaluation #2: CBC is without leukocytosis, has a normocytic anemia that does not meet transfusion criteria, no thrombocytopenia. No significant electrolyte derangement, no NAYLA, non-anion gap mild hyperglycemia with glucose of 134, LFTs lipase are normal. Viral serologies are negative. No consolidation infiltrate on chest x-ray to suggest pneumonia. EKG reveals sinus rhythm with first-degree AV block with MT interval 224 MS an incomplete right bundle-branch block(will seen on prior), ventricular rate of 84, prolonged QTC 498. Head CT significant motion limited exam, but no overt intracranial abnormality. he has a arrived in the emergency department hypertensive in remains this way, [facility] did not take any of his medications today including his metoprolol, we have provided with a dosage in the emergency department. Still pending urinalysis at this time. he was recently started on lorazepam 0.5 mg orally family feels he would benefit from this at this time which I have ordered he does appear somewhat restless on the stretcher Time: 16:28 Reevaluation #3: Tachycardia has resolved, down to 80 beats per minute, BP trending down. Patient did attempt to urinate, was unable to produce urine specimen, bladder scan revealing 73 mL, given food and drink at this time. Patient will be signed out to Lee [facility]ACE pending U/A and disposition Time: 17:55 Additional Reevaluation(s): Malena Marrufo PA-C have accepted care of the patient at signed out pending labs and reassessment. The patient started empiric antibiotic therapy for suspect UTI, he had an outpatient urinalysis that reveals no infection. We are repeating the urinalysis. Repeat urinalysis, urine not infected I performed bedside renal ultrasound, there was no hydronephrosis bilaterally, I can see active uro jets. The patient has disruption at night and new insomnia, is likely secondary to progression of his dementia. I have relayed this to the patient's family. They will continue to follow up with your outpatient providers Medications Administered Discontinued Medications Generic Name Dose Route Start Last Admin Trade Name Freq PRN Reason Stop Dose Admin Lorazepam 0.5 mg 07/15/24 16:10 07/15/24 16:17 Lorazepam 0.5 Mg Tablet PO 07/15/24 16:11 0.5 mg ONCE ONE Administration Metoprolol Tartrate 25 mg 07/15/24 16:10 07/15/24 16:17 Metoprolol Tartrate 25 Mg Tablet PO 07/15/24 16:11 25 mg ONCE ONE Administration Protocol Olanzapine 5 mg 07/15/24 19:17 07/15/24 19:43 Olanzapine 5 Mg Tablet PO 07/15/24 19:18 Not Given ONCE ONE Medical Decision Making Medical Decision Making [facility] Narrative: Patient is an 88-year-old male with past medical history of hypertension, hypercholesterolemia, type 2 diabetes, CAD s/p CABG in 2016, dementia who presents emergency department for evaluation of altered mental status and generalized weakness as per HPI, given from family's report to EMS they are not currently present at bedside. Patient offers no overt physical complaints aside from feeling ?lousy?. He is alert and oriented x2 disoriented to time and event. Has no focal neurological deficits at the time of my evaluation. By patient's account he is nonambulatory at baseline states that he uses a wheelchair. On physical examination weakness does not appear to be unilateral, family's account EMS has been progressive over the past 2 days, rather than sudden in onset making CVA/TIA less likely however given age and past medical history will obtain CT of the head to exclude acute pathology. No evidence of ascending paralysis to suggest Guillain-Ros[place] syndrome. No respiratory distress, no reported shortness breath or chest pain to suggest cardiovascular etiology, ACS Weakness most prominent distally rather than proximal, suspect less likely myopathy or PMR. Will obtain CBC to evaluate for leukocytosis/ anemia, CMP and lipase to evaluate for abnormal electrolytes /abnormal renal function/ abnormal hepatic/biliary function, EKG and troponin to evaluate for ischemia/ACS. Chest x-ray to evaluate for consolidation/ infiltrate/ mass/ pulmonary congestion, viral serologies and Urinalysis. Differential Diagnosis Differential Diagnoses: The differential diagnosis associated with the presentation includes (See narrative above) Admission/Observation Consideration of admission/observation: Escalation of care including admission/observation considered (See narrative above and course narrative for further detail) Lab Data [facility] Lab Attestation statement: I reviewed the patient's lab results. 07/15/24 13:24 07/15/24 13:49 Labs: Lab Results 07/15/24 07/15/24 07/15/24 Range/Units 13:24 13:49 19:39 WBC 7.8 (4.8-10.8) X10*3/uL RBC 4.21 L (4.60-5.80) X10*6/uL Hgb 13.9 L (14.0-18.0) g/dl Hct 39.7 L (42.0-52.0) % MCV 94.3 (80.0-98.0) fL MCH 33.0 (27.0-33.0) pg MCHC 35.0 (31.0-36.0) g/dl RDW 11.9 (11.0-16.0) % Plt Count 290 D (160-400) X10*3/uL MPV 9.2 L (9.4-12.4) fL Immature Gran % (Auto) 0.5 H (0.0-0.4) % Neut % (Auto) 67.0 (45-73) % Lymph % (Auto) 19.9 L (20-40) % [place] % (Auto) 7.6 (2-11) % Eos % (Auto) 4.5 H (0-4) % Baso % (Auto) 0.5 (0-2) % Lymph # (Auto) 1.6 (1.2-4.9) X10*3/uL [place] # (Auto) 0.6 (0.1-1.2) X10*3/uL Eos # (Auto) 0.4 (0.0-0.4) X10*3/uL Baso # (Auto) 0.0 (0.0-0.2) X10*3/uL Abs Immat Gran (auto) 0.04 H (0.00-0.03) X10*3/uL Absolute Neuts (auto) 5.2 (2.0-8.3) x10*3/uL Absolute Nucleated RBC 0.000 (0.0-0.012) X10*3/uL Nucleated RBC % (auto) 0.0 (0.0-0.2) /100WBC Sodium 142 (135-145) mmol/L Potassium 4.1 (3.3-5.1) mmol/L Chloride 104 (96-108) mmol/L Carbon Dioxide 31 H (22-29) mmol/L Anion Gap 11 L (12-20) BUN 17 H (9-16) mg/dL Creatinine 0.92 (0.5-1.4) mg/dL Estim Creat Clear Calc 51.8 Estimated GFR > 60 Random Glucose 134 H (60-115) mg/dL Calcium 9.7 D (8.4-10.2) mg/dL Magnesium 1.7 (1.6-2.6) mg/dL Total Bilirubin 0.8 (0.0-1.0) mg/dL AST 23 (5-37) U/L ALT 12 (0-40) U/L Alkaline Phosphatase 67 (39-117) U/L B-Natriuretic Peptide 174 H (<100) pg/mL Total Protein 6.7 (6.5-8.0) g/dL Albumin 4.1 (3.5-5.0) g/dL Lipase 16 (8-78) U/L Urine Color Yellow Urine Appearance Clear Urine pH 8.0 (5.0-9.0) Ur Specific [place] 1.010 (1.005-1.025) Urine Protein Negative (Neg-Trace) mg/dL Urine Glucose (UA) Negative (Negative) mg/dL Urine Ketones Negative (Negative) mg/dL Urine Blood Trace H (Negative) Urine Nitrite Negative (Negative) Ur Leukocyte Esterase Negative (Negative) Urine RBC 0-2 (0-2) /HPF Urine WBC 0-5 (0-5) /HPF Ur Squamous Epith Cells 0-2 (0-2) /HPF Urine Bacteria None Seen (None Seen) Hyaline Casts 0-2 (0-2) /LPF Influenza Type A (PCR) NEGATIVE (Negative) Influenza Type B (PCR) NEGATIVE (Negative) RSV RNA Qual (PCR) NEGATIVE (Negative) SARS-CoV-2 RNA (RT-PCR) NEGATIVE (Negative) Independent Interpretation I performed an independent interpretation of an: EKG Radiology Impression Discussion of test interpretation with radiology: I have reviewed the radiologist's reading. Radiologist Impression: CT/CT head/brain wo IV con IMPRESSION: 1. Significantly motion degraded examination, limiting sensitivity. Within these confines, there is no acute intracranial abnormality. 2. 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 Independent Historian Clinical information obtained from an independent historian. History obtained from or confirmed by: EMS External Record Review External record reviewed: Inpatient record (Three day admission in Seth of 2024 similarly for weakness, dizziness, multiple falls) and Outpatient record Chronic Conditions Patient?s care impacted by: Other (See narrative above) Procedures Procedure Narrative Procedure Narrative: Renal ultrasound No hydronephrosis bilaterally, uro jets visualized, no foreign body in the bladder, Performed by Neena Marrufo PA-C Discharge Plan Discharge Clinical Impression: Insomnia Patient Disposition: Home, Self-Care Instructions: Insomnia (ED), Dementia (ED) Additional Instructions: There were no concerning lab findings today, the urine is not infected, the prior urinalysis is also not infected. You can discontinue the Bactrim. CT scan of the brain was obtained, there was no abnormality. A renal ultrasound was obtained at the bedside, there was no evidence of a kidney stone, or any other abnormality.The patient's behavior could simply be progression of the dementia disease process. Continue to follow up with his outpatient providers. Prescriptions: No Action tamsulosin 0.4 mg capsule 0.4 mg PO DAILY Qty: 90 0RF olanzapine 2.5 mg tablet 2.5 mg PO BEDTIME Qty: 30 1RF sulfamethoxazole-trimethoprim [Bactrim DS] 800-160 mg tablet 1 tab PO BID 7 Days Qty: 14 0RF metoprolol succinate 100 mg Tablet Extended Release 24 Hr 100 mg PO DAILY cyanocobalamin (vitamin B-12) 500 mcg Tablet 500 mcg PO DAILY ascorbic acid (vitamin C) 500 mg Tablet 500 mg PO DAILY (DME) FreeStyle Lite Meter aspirin 81 mg Tablet,Delayed Release (Dr/Ec) 81 mg PO DAILY finasteride 5 mg Tablet 5 mg PO BEDTIME Qty: 90 0RF metformin 500 mg tablet 500 mg PO TID Patient Comments: once in the AM and two tabs at night cholecalciferol (vitamin D3) 25 mcg (1,000 unit) capsule 25 mcg PO DAILY omega 6-gbi-sxa-fish oil 300-1,000 mg capsule 1 cap PO DAILY Print Language: Senegalese
--- NOTE | 2024-07-15 13:07 | PC.NURSE ---
BPs noted to be high 200s/100s. TRACK LABORER Theodore aware and at bedside. BP cycling q15 minutes to monitor.
--- NOTE | 2024-07-15 13:13 | ECG_ITS ---
Test Reason : WEAKNESS Blood Pressure : */* mmHG Vent. Rate : 84 BPM Atrial Rate : 84 BPM P-R Int : 224 ms QRS Dur : 106 ms QT Int : 422 ms P-R-T Axes : 58 41 -18 degrees QTcB Int : 498 ms Sinus rhythm with 1st degree A-V block with Premature atrial complexes Incomplete right bundle branch block Nonspecific ST and T wave abnormality Prolonged QT Abnormal ECG When compared with ECG of 19-Jan-2024 22:17, Premature ventricular complexes are no longer Present Premature atrial complexes are now Present Referred By: Marcelle Mckeon Electronically Signed By: MATTHEW ROR
[2024-07-15 13:30] LABS: MANUAL DIFF FLAG NO
[2024-07-15 13:40] LABS: Basophils Percent Auto 0.5 % (0-2); Eosinophils Absolute Auto 0.4 X10*3/uL (0.0-0.4); Eosinophils Percent Auto 4.5 % (0-4); Hematocrit 39.7 % (42.0-52.0); Hemoglobin 13.9 g/dl (14.0-18.0); Imm Gran Abs Auto 0.04 X10*3/uL (0.00-0.03); Imm Gran Pct Auto 0.5 % (0.0-0.4); Lymphocytes Absolute Auto 1.6 X10*3/uL (1.2-4.9); Lymphocytes Percent Auto 19.9 % (20-40); Mean Corpuscular Volume 94.3 fL (80.0-98.0); Mean Platelet Volume 9.2 fL (9.4-12.4); Monocytes Absolute Auto 0.6 X10*3/uL (0.1-1.2); Monocytes Percent Auto 7.6 % (2-11); Neutrophils Absolute Auto 5.2 x10*3/uL (2.0-8.3); Platelet Count 290 X10*3/uL (160-400); Red Blood Count 4.21 X10*6/uL (4.60-5.80); Red Cell Distribution Width 11.9 % (11.0-16.0); White Blood Count 7.8 X10*3/uL (4.8-10.8)
--- OUTSIDE RECORDS SUMMARY | 2024-07-15 13:40 | XMS_ITS ---
Author Organization [facility] Address [address] [place] [address] Care Team Providers Care President [employer] Name Role Phone Pritesh Malcolm MD Primary Care Provider Marcella Vidal Unavailable [phone] Allergies Allergen (clinical drug ingredient) Drug/Non Drug [...] Bandages Unknown Drug Allergy Active Substance with 0-jkuthpo-3-methylgluta ryl-coenzyme A reductase inhibitor mechanism of action [...] Active Encounters Encounter Location Date Provider Diagnosis [facility] [address] [place] [address] 04/08/2024 Marcella Joseph Plan Of Treatment No Information Progress Notes * Rober HATCH GDOB: 6 (88 yo M)Acc No.[id number]:04/08/2024 Progress Note Patient:?Rober HATCH Provider:?Marcella Joseph DPM :1935???Age:88 Y???Sex:Male Neri e:04/08/2024 Address:[address] [place], [place] [id number] Pcp:Pritesh Malcolm MD Subjective: * Chief Complaints: [...] Joseph DPM Date:? Generated for Dinorah hernadez/Veena/Harpreet on:?07/15/2024 01:40 PM EDT
[2024-07-15 13:59] LABS: B Type Natriuretic Peptide 174 pg/mL (<100)
[2024-07-15 14:07] LABS: Influenza A PCR NEGATIVE (Negative); Influenza B PCR NEGATIVE (Negative); Resp Syncy Virus RNA Qual PCR NEGATIVE (Negative); SARS COV2 PCR INHOUSE NEGATIVE (Negative)
[2024-07-15 14:15] LABS: Alanine Aminotransferase 12 U/L (0-40); Albumin Level 4.1 g/dL (3.5-5.0); Alkaline Phosphatase 67 U/L (39-117); Anion Gap 11 (12-20); Aspartate Amino Transferase 23 U/L (5-37); Bilirubin Total 0.8 mg/dL (0.0-1.0); Blood Urea Nitrogen 17 mg/dL (9-16); Calcium 9.7 mg/dL (8.4-10.2); Carbon Dioxide 31 mmol/L (22-29); Chloride 104 mmol/L (96-108); Creatinine Clr Calc Pharmacy 51.8; Estimated Glomerular Filt Rate > 60; Glucose Random 134 mg/dL (60-115); Lipase 16 U/L (8-78); Magnesium 1.7 mg/dL (1.6-2.6); Potassium 4.1 mmol/L (3.3-5.1); Sodium 142 mmol/L (135-145); Total Protein 6.7 g/dL (6.5-8.0)
--- NOTE | 2024-07-15 14:40 | PC.NURSE ---
Pt found sliding towards foot of bed. Hoisted back into bed and camera applied.
[2024-07-15] MEDS: LORazepam 0.5 MG TABLET PO (16:17)
[2024-07-15] MEDS: Metoprolol Tartrate 25 MG TABLET PO (16:17)
--- NOTE | 2024-07-15 17:49 | MHC.EDTECH ---
Patient incontinent therefore patient changed and repositioned
--- NOTE | 2024-07-15 18:12 | PC.NURSE ---
Multiple attempts for pt to urinate, unable to void. Bladder scan showed 76mls- CHEMICAL ECONOMIST Theodore aware. Pt given liquids- will reattempt. Family at bedside.
--- NOTE | 2024-07-15 19:16 | MHC.EDTECH ---
Patient inc therefore patient changed and repositioned
--- NOTE | 2024-07-15 19:43 | PC.NURSE ---
Addendum entered by Yasmin Cali 07/15/24 19:45: skin tear noted to R. forearm, wrapped and nonstick pad. Original Note: pt tolerated straight cath well, urine sent to lab. pt is resting comofrtably, sleeping but arousable, zyprexa held at this time. bp improved as documented. and son remain at bedside. VMT in place for fall risk. call lopez within reach.
[2024-07-15 19:54] LABS: Appearance Urine Clear; Color Urine Yellow; Glucose Urine UA Negative (Negative); Leukocyte Esterase Urine Negative (Negative); Nitrite Urine Negative (Negative); UMIC TRIGGER UACC YES; Urine Blood Trace (Negative); Urine Ketones Negative (Negative); Urine Protein Negative (Neg-Trace)
[2024-07-15 20:03] LABS: Bacteria Urine None Seen (None Seen); Hyaline Casts Urine 0-2 /LPF (0-2); RBC Urine 0-2 /HPF (0-2); Squamous Epithelial Cell Urine 0-2 /HPF (0-2); WBC Urine 0-5 /HPF (0-5)
--- NOTE | 2024-07-15 21:05 | PC.NURSE ---
pt is becomingrestless, per RODRIOG Enciso to given 5mg zyprexa as previously ordered.
[2024-07-15] MEDS: OLANZapine 5 MG TABLET PO (21:08)
--- NOTE | 2024-07-15 21:28 | MHC.EDTECH ---
Patient incontinent therefore patient cleaned and reposition
== END 2024-07-15 21:53 | disposition home or self-care (01) ==
PROVIDERS: Nurse Practitioner Family; Emergency Provider Emergency Medicine
DX: G47.00 Insomnia, unspecified (principal); R35.0 Frequency of micturition; R41.82 Altered mental status, unspecified; I25.10 Atherosclerotic heart disease of native coronary artery without angina pectoris; R53.1 Weakness; R94.31 Abnormal electrocardiogram [ECG] [EKG]; R00.0 Tachycardia, unspecified; E11.9 Type 2 diabetes mellitus without complications; D64.9 Anemia, unspecified; Z03.818 Encounter for observation for suspected exposure to other biological agents ruled out; Z79.899 Other long term (current) drug therapy; Z79.84 Long term (current) use of oral hypoglycemic drugs
CPT/HCPCS: 0241U; 36415; 51701; 70450; 71046; 80053; 81001; 83690; 83735; 83880; 85025; 93005; 99284; 99285

== ENCOUNTER → 2024-07-15 13:13 | Outpatient (BNV) | payer MEDICARE, SELFPAY | PROVIDERS: Emergency Provider Emergency Medicine; Visit Provider Internal Medicine | DX: I44.0 Atrioventricular block, first degree (principal); I45.10 Unspecified right bundle-branch block; I49.1 Atrial premature depolarization | CPT/HCPCS: 93010 ==

== ENCOUNTER → 2024-07-15 13:13 | Outpatient (BNV) | payer MEDICARE, SELFPAY | PROVIDERS: Emergency Provider Emergency Medicine; Visit Provider Radiology Diagnostic Radiology | DX: R90.82 White matter disease, unspecified (principal); J92.9 Pleural plaque without asbestos; M19.011 Primary osteoarthritis, right shoulder; M19.012 Primary osteoarthritis, left shoulder | CPT/HCPCS: 70450; 71046 ==